=== PATIENT | female | born 1935 | race Caucasian/White ===

== ENCOUNTER → 2017-01-28 | Outpatient (CLI) | payer OTHER | LOC: BHFA 09:00 | PROVIDERS: ATTEND Internal Medicine | DX: I25.2 Old myocardial infarction (principal) ==

== ENCOUNTER → 2017-01-28 | Outpatient (CLI) | payer OTHER | LOC: FIMAGING 10:34 | PROVIDERS: ATTEND Internal Medicine | DX: J98.4 Other disorders of lung (principal); I10 Essential (primary) hypertension; I25.2 Old myocardial infarction ==

== ENCOUNTER 2017-02-04 16:24 | Emergency (ER) | payer OTHER ==
--- NOTE | 2017-02-04 16:57 | CPEKG ---
Heart Rate: 60 RR Interval: 1000 P-R Interval: 152 QRSD Interval: 90 QT Interval: 408 QTC Interval: 408 P [place]: 24 QRS [place]: -40 T Wave [place]: 60 EKG Severity - ABNORMAL ECG - EKG Impression: SINUS RHYTHM EKG Impression: LEFT AXIS DEVIATION EKG Impression: PROBABLE LEFT VENTRICULAR HYPERTROPHY EKG Impression: SIMILAR TO PREVIOUS Electronically Signed By: Clint Barrera 04-Feb-2017 17:24:37
[2017-02-04] MEDS ORDERED: NS 1,000 ML IV ONE (17:20)
--- NOTE | 2017-02-04 17:24 | EDPHY ---
H & P Chief Complaint Nursing Narrative: weakness, SOB, dizziness, abdominal pain x 2 days. had chest XR at Dr. Knowles office last week that was normal. Time Seen by Provider: 02/04/17 17:10 HPI/ROS: CHIEF COMPLAINT: Generalized weakness HISTORY OF PRESENT ILLNESS: The patient is an 81-year-old female who comes to the Urgent Care complaining of generalized weakness. She states that she was treated 10 days ago with Bactrim for urinary tract infection by her primary Dr. Toledo. She states that she did not feel any better. She does have a history of cystocele and prolapsed urethra So she has chronic discomfort with urination. She also has a history of scoliosis with chronic back pain but does not feel like she has had any worsening of either symptoms. She does have a history of hysterectomy as well as coronary artery disease remotely. She describes her symptoms as moderate but frustrating. she has not had a fever. No GI symptoms. No respiratory symptoms. No chest pain. REVIEW OF SYSTEMS: Constitutional: denies: chills, fever, recent illness, recent injury EENTM: denies: blurred vision, double vision, nose congestion Respiratory: denies: cough, shortness of breath Cardiac: denies: chest pain, irregular heart rate, lightheadedness, palpitations Gastrointestinal/Abdominal: denies: abdominal pain, diarrhea, nausea, vomiting, blood streaked stools Genitourinary: denies: dysuria, frequency, hematuria, pain Musculoskeletal: denies: joint pain, muscle pain Skin: denies: lesions, rash, jaundice, bruising Neurological: denies: headache, numbness, paresthesia, tingling, dizziness, weakness Hematologic/Lymphatic: denies: blood clots, easy bleeding, easy bruising Immunologic/allergic: denies: HIV/AIDS, transplant EXAM: GENERAL: Well-appearing, well-nourished and in no acute distress. HEAD: Atraumatic, normocephalic. EYES: Pupils equal round and reactive to light, extraocular movements intact, sclera anicteric, conjunctiva are normal. ENT: TMs normal, nares patent, oropharynx clear without exudates. Moist mucous membranes. NECK: Normal range of motion, supple without lymphadenopathy or JVD. LUNGS: Breath sounds clear to auscultation bilaterally and equal. No wheezes rales or rhonchi. HEART: Regular rate and rhythm without murmurs, rubs or gallops. ABDOMEN: Soft, nontender, normoactive bowel sounds. No guarding, no rebound. No masses appreciated. BACK: No CVA tenderness, no spinal tenderness, step-offs or deformities EXTREMITIES: Normal range of motion, no pitting or edema. No clubbing or cyanosis. NEUROLOGICAL: Cranial nerves II through XII grossly intact. Normal speech, normal gait. 5/5 strength, normal movement in all extremities, normal sensation PSYCH: Normal mood, normal affect. SKIN: Warm, dry, normal turgor, no visible rashes or lesions. Source: Patient Exam Limitations: No limitations - Personal History Current Tetanus Diphtheria and Acellular Pertussis (TDAP): Unsure - Medical/Surgical History Hx Asthma: No Hx Chronic Respiratory Disease: No Hx Diabetes: No Hx Cardiac Disease: Yes Hx Renal Disease: No Hx Cirrhosis: No Hx Alcoholism: No Hx HIV/AIDS: No Hx Splenectomy or Spleen Trauma: No Other PMH: [place] 15 years ago, hypothyroid, osteoporosis, GERD, depression - Family History Significant Family History: No pertinent family hx - Social History Smoking Status: Former smoker Alcohol Use: Sober Drug Use: None Constitutional: Initial Vital Signs Temperature (C) 36.6 C 02/04/17 16:26 Heart Rate 60 02/04/17 16:26 Respiratory Rate 18 02/04/17 16:26 Blood Pressure 163/96 H 02/04/17 16:26 O2 Sat (%) 95 02/04/17 16:26 O2 Delivery Mode Room Air Allergies/Adverse Reactions: IODINE DYE Allergy (Intermediate, Uncoded 02/04/17 16:33) BLISTERS Home Medications: Medication Instructions Recorded Alendronate Sodium [Fosamax 70 MG 70 mg PO FR@0700 01/13/15 (*)] Calcium Carb W/Vit D [Calcium Carb 500 mg PO DAILY@01/13/15 W/Vit D 500/200 (*)] Cholecalciferol (Vitamin D3) 2,000 unit PO DAILY@01/13/15 [Vitamin D3] Cyanocobalamin [Vitamin B12 (*)] 2,000 mcg PO DAILY@01/13/15 Duloxetine HCl [Cymbalta] 20 mg PO HS 01/13/15 Estrogens,Conjugated [Premarin 0.3 0.3 mg PO DAILY 01/13/15 MG (*)] Famotidine [Pepcid 20 MG (*)] 20 mg PO DAILY PRN 01/13/15 Herbals/Supplements -Info Only 1 ea PO DAILY 01/13/15 Ibuprofen [Motrin (*)] 200 mg PO BID PRN 01/13/15 LORazepam [Ativan (*)] 0.25 mg PO HS 01/13/15 Levothyroxine [Synthroid 88 mcg 88 mcg PO DAILY06 01/13/15 (*)] Lidocaine 5% [Lidoderm 5% Patch 1 ea TD DAILY PRN 01/13/15 (*)] Magnesium Oxide [Magnesium Oxide 400 mg PO DAILY@12 01/13/15 400 mg (*)] Multivitamins W-Minerals [Thera M 1 each PO DAILY 01/13/15 Plus Tablet (*)] Psyllium Seed/Aspartame [Metamucil 1 tbs PO DAILY 01/13/15 Powder] Methocarbamol [Robaxin 500 mg (*)] 500 mg PO BID PRN #20 tab 01/14/15 Cephalexin [Keflex] 500 mg PO TID #21 cap 02/04/17 Medical Decision Making - Diagnostics EKG Interpretation: An EKG obtained and was read and documented in trace view. Please see trace view for full reading and report. Sinus rhythm, no acute ischemic changes. ED Course/Re-evaluation: Patient is well appearing. I suspect that she has part of the 15% of patients in [facility] who have urinary tract infections resistant to Bactrim. I will obtain lab work and treat with IV fluids and antibiotics. 7:30 p.m. we discussed her disposition. Her urinalysis still appears infected which is consistent with her symptoms and presentation. She has received Keflex and IV fluids. I offered admission but she declines. She thinks that she can take care of herself at home. I gave her strict warnings for returning. Her neighbor will stay with her. Differential Diagnosis: Partial list of the Differential diagnosis considered include but were not limited to; dehydration, electrolyte abnormality, urinary tract infection and although unlikely based on the history and physical exam, I also considered pneumonia, sepsis, meningitis, acute coronary disease. I discussed these differential diagnoses and the plan with the patient as well as the usual and expected course. The patient understands that the diagnosis is provisional and that in medicine we are not always correct and that further workup is often warranted. Usual and customary warnings were given. All of the patient's questions were answered. The patient was instructed to return to the emergency department should the symptoms at all worsen or return, otherwise to followup with the physician as we discussed. - Data Points Laboratory Results: Laboratory Results 02/04/17 17:00 02/04/17 17:00 02/04/17 02/04/17 02/04/17 18:40 17:00 17:00 WBC 10.63 10^3/uL H 10^3/uL (3.80-9.50) RBC 4.42 10^6/uL 10^6/uL (4.18-5.33) Hgb 14.0 g/dL g/dL (12.6-16.3) Hct 40.7 % % (38.0-47.0) MCV 92.1 fL fL (81.5-99.8) MCH 31.7 pg pg (27.9-34.1) MCHC 34.4 g/dL g/dL (32.4-36.7) RDW 13.0 % % (11.5-15.2) Plt Count 248 10^3/uL 10^3/uL (150-400) MPV 9.6 fL fL (8.7-11.7) Neut % (Auto) 54.5 % % (39.3-74.2) Lymph % (Auto) 39.1 % % (15.0-45.0) [place] % (Auto) 4.8 % % (4.5-13.0) Eos % (Auto) 0.8 % % (0.6-7.6) Baso % (Auto) 0.5 % % (0.3-1.7) Nucleat RBC Rel Count 0.0 % % (0.0-0.2) Absolute Neuts (auto) 5.79 10^3/uL 10^3/uL (1.70-6.50) Absolute Lymphs (auto) 4.16 10^3/uL H 10^3/uL (1.00-3.00) Absolute Monos (auto) 0.51 10^3/uL 10^3/uL (0.30-0.80) Absolute Eos (auto) 0.09 10^3/uL 10^3/uL (0.03-0.40) Absolute Basos (auto) 0.05 10^3/uL 10^3/uL (0.02-0.10) Absolute Nucleated RBC 0.00 10^3/uL 10^3/uL (0-0.01) Immature Gran % 0.3 % % (0.0-1.1) Immature Gran # 0.03 10^3/uL 10^3/uL (0.00-0.10) Sodium 137 mEq/L mEq/L (134-144) Potassium 4.1 mEq/L mEq/L (3.5-5.2) Chloride 98 mEq/L mEq/L (97-110) Carbon Dioxide 27 mEq/l mEq/l (22-31) Anion Gap 12 mEq/L mEq/L (8-16) BUN 16 mg/dL mg/dL (7-23) Creatinine 0.6 mg/dL mg/dL (0.6-1.0) Estimated GFR > 60 Glucose 75 mg/dL mg/dL (70-100) Calcium 9.3 mg/dL mg/dL (8.5-10.4) Urine Color YELLOW Urine Appearance HAZY Urine pH 7.0 (5.0-7.5) Ur Specific [place] <= 1.005 (1.002-1.030) Urine Protein NEGATIVE (NEGATIVE) Urine Ketones NEGATIVE (NEGATIVE) Urine Blood NEGATIVE (NEGATIVE) Urine Nitrate NEGATIVE (NEGATIVE) Urine Bilirubin NEGATIVE (NEGATIVE) Urine Urobilinogen 0.2 EU EU (0.2-1.0) Ur Leukocyte Esterase 2+ H (NEGATIVE) Urine RBC 0-1 /hpf /hpf (0-3) Urine WBC 25-50 /hpf H /hpf (0-3) Ur Epithelial Cells TRACE /lpf /lpf (NONE-1+) Urine Bacteria 3+ /hpf H /hpf (NONE SEEN) Urine Mucus 1+ /lpf /lpf (NONE-1+) Ur Culture Indicated? INDICATED H (NI) Urine Glucose NEGATIVE (NEGATIVE) Medications Given: Discontinued Medications Sodium Chloride (Ns) 1,000 mls @ 0 mls/hr IV ONCE ONE PRN Reason: Wide Open Stop: 02/04/17 17:21 Last Admin: 02/04/17 17:30 Dose: 1,000 mls Ceftriaxone Sodium 1 gm/ (Sodium Chloride) 100 mls @ 200 mls/hr IV EDNOW ONE PRN Reason: Protocol Stop: 02/04/17 18:13 Last Admin: 02/04/17 18:00 Dose: 100 mls Departure - Departure Disposition: Home, Routine, Self-Care Clinical Impression: Urinary tract infection Qualifiers: Urinary tract infection type: acute cystitis Hematuria presence: without hematuria Qualified Code(s): N30.00 - Acute cystitis without hematuria Condition: Fair Instructions: Urinary Tract Infection in Women (ED) Referrals: Jasmyn Toledo MD [Primary Care Provider] - As per Instructions Prescriptions: Cephalexin [Keflex] 500 mg PO TID #21 cap
[2017-02-04 17:26] LABS: % IMMATURE GRANULYOCYTES 0.3 % (0.0-1.1); ABSOLUTE IMMATURE GRANULOCYTES 0.03 10^3/uL (0.00-0.10); ADD DIFF? NO; ADD MORPH? NO; ADD SCAN? NO; ATYPICAL LYMPHOCYTE FLAG 70 (0-99); FRAGMENT RBC FLAG 0 (0-99); HEMATOCRIT 40.7 % (38.0-47.0); LEFT SHIFT FLG 0 (0-99); LIPEMIA HEMOLYSIS FLAG 90 (0-99); MEAN CELL HEMOGLOBIN 31.7 pg (27.9-34.1); MEAN CELL HEMOGLOBIN CONCENTR. 34.4 g/dL (32.4-36.7); MEAN CELL VOLUME 92.1 fL (81.5-99.8); MEAN PLATELET VOLUME 9.6 fL (8.7-11.7); PLATELET CLUMPS FLAG 10 (0-99); PLATELET COUNT 248 10^3/uL (150-400); RED BLOOD CELL COUNT 4.42 10^6/uL (4.18-5.33)
[2017-02-04 17:37] LABS: ANION GAP 12 mEq/L (8-16); CALCIUM 9.3 mg/dL (8.5-10.4); CARBON DIOXIDE 27 mEq/l (22-31); CHLORIDE 98 mEq/L (97-110); CREATININE 0.6 mg/dL (0.6-1.0); GLOMERULAR FILTRATION RATE > 60; GLUCOSE 75 mg/dL (70-100); POTASSIUM 4.1 mEq/L (3.5-5.2); SODIUM 137 mEq/L (134-144)
[2017-02-04 18:45] LABS: COLOR YELLOW; LEUKOCYTE ESTERASE,URINE 2+ (NEGATIVE); NITRITE,URINE NEGATIVE (NEGATIVE)
[2017-02-04 18:58] LABS: BACTERIA 3+ /hpf (NONE SEEN); MUCUS 1+ /lpf (NONE-1+); RBC,URINE 0-1 /hpf (0-3); WBC,URINE 25-50 /hpf (0-3)
[2017-02-04 20:05] VITALS: BP 172/77; PULSE 63; RESP 16; TEMP 98.2; O2SAT 94
== END 2017-02-04 19:58 | disposition home or self-care (01) ==
LOC: CED 16:24
DX: N30.00 Acute cystitis without hematuria (principal); K21.9 Gastro-esophageal reflux disease without esophagitis; E03.9 Hypothyroidism, unspecified; M81.0 Age-related osteoporosis without current pathological fracture; I25.2 Old myocardial infarction; F32.9 Major depressive disorder, single episode, unspecified; Z87.891 Personal history of nicotine dependence
CPT/HCPCS: 93005; 96361; 96365; G0463; J0696; 80048-PO; 81003-PO; 81015-PO; 85025-PO

== ENCOUNTER 2017-02-08 16:21 | Inpatient (IN) | payer OTHER ==
[2017-02-08] MEDS ORDERED: NS 1,000 ML IV ONE (16:57)
--- NOTE | 2017-02-08 17:01 | EDPHY ---
H & P Stated Complaint: Seen [place] [place] antibx;BC&UC done;still weak,now w/ diarrhea Time Seen by Provider: 02/08/17 16:36 HPI/ROS: CHIEF COMPLAINT: Generalized weakness HISTORY OF PRESENT ILLNESS: Patient is a 81-year-old female who comes to the emergency department complaining of generalized weakness. She has had the symptoms for about 2 weeks. She was initially seen by her primary care doctor Tre about 2 weeks ago and diagnosed with urinary tract infection. She was started on Bactrim. She then presented to the urgent care 4 days ago and was seen by me. She had continued symptoms of generalized weakness and mild dysuria. Her urinalysis was positive and she was treated with Keflex. Her cultures came back with E coli sensitive to both Bactrim and Keflex. Her blood cultures are negative. She does have a history of prolapsed bladder but has previously not been prone to frequent urinary tract infections although she always has some discomfort with urination. She has surgery scheduled February 26 to have this repaired and she is trying to get well. She complains of weakness, cloudy thinking and difficulty making decisions. She also now has mild diarrhea after starting Keflex. No fever. No difficulty breathing, no chest pain. No abdominal pain, nausea or vomiting. No headache. No focal weakness. REVIEW OF SYSTEMS: Constitutional: denies: chills, fever, recent illness, recent injury EENTM: denies: blurred vision, double vision, nose congestion Respiratory: denies: cough, shortness of breath Cardiac: denies: chest pain, irregular heart rate, lightheadedness, palpitations Gastrointestinal/Abdominal: denies: abdominal pain, diarrhea, nausea, vomiting, blood streaked stools Genitourinary: denies: dysuria, frequency, hematuria, pain Musculoskeletal: denies: joint pain, muscle pain Skin: denies: lesions, rash, jaundice, bruising Neurological: denies: headache, numbness, paresthesia, tingling, dizziness, weakness Hematologic/Lymphatic: denies: blood clots, easy bleeding, easy bruising Immunologic/allergic: denies: HIV/AIDS, transplant EXAM: GENERAL: Well-appearing, well-nourished and in no acute distress. HEAD: Atraumatic, normocephalic. EYES: Pupils equal round and reactive to light, extraocular movements intact, sclera anicteric, conjunctiva are normal. ENT: TMs normal, nares patent, oropharynx clear without exudates. Moist mucous membranes. NECK: Normal range of motion, supple without lymphadenopathy or JVD. LUNGS: Breath sounds clear to auscultation bilaterally and equal. No wheezes rales or rhonchi. HEART: Regular rate and rhythm without murmurs, rubs or gallops. ABDOMEN: Soft, nontender, normoactive bowel sounds. No guarding, no rebound. No masses appreciated. BACK: No CVA tenderness, no spinal tenderness, step-offs or deformities EXTREMITIES: Normal range of motion, no pitting or edema. No clubbing or cyanosis. NEUROLOGICAL: Cranial nerves II through XII grossly intact. Normal speech, normal gait. 5/5 strength, normal movement in all extremities, normal sensation PSYCH: Normal mood, normal affect. SKIN: Warm, dry, normal turgor, no visible rashes or lesions. Source: Patient Exam Limitations: No limitations - Personal History Current Tetanus Diphtheria and Acellular Pertussis (TDAP): Yes - Medical/Surgical History Hx Asthma: No Hx Chronic Respiratory Disease: No Hx Diabetes: No Hx Cardiac Disease: Yes Hx Renal Disease: No Hx Cirrhosis: No Hx Alcoholism: No Hx HIV/AIDS: No Hx Splenectomy or Spleen Trauma: No Other PMH: [place] 15 years ago, hypothyroid, osteoporosis, GERD, depression - Family History Significant Family History: No pertinent family hx - Social History Smoking Status: Former smoker Alcohol Use: None Drug Use: None Constitutional: Initial Vital Signs Temperature (C) 36.8 C 02/08/17 16:25 Heart Rate 66 02/08/17 16:25 Respiratory Rate 18 02/08/17 16:25 Blood Pressure 142/75 H 02/08/17 16:25 O2 Sat (%) 96 02/08/17 16:25 O2 Delivery Mode Room Air Allergies/Adverse Reactions: IODINE DYE Allergy (Intermediate, Uncoded 02/04/17 16:33) BLISTERS Home Medications: Medication Instructions Recorded Cyanocobalamin [Vitamin B12 (*)] 2,000 mcg PO DAILY 01/13/15 Estrogens,Conjugated [Premarin 0.3 0.3 mg PO DAILY 01/13/15 MG (*)] Herbals/Supplements -Info Only 1 ea PO DAILY 01/13/15 LORazepam [Ativan (*)] 0.25 mg PO HS PRN 01/13/15 Levothyroxine [Synthroid 88 mcg 88 mcg PO DAILY06 01/13/15 (*)] Lidocaine 5% [Lidoderm 5% Patch 1 ea TD DAILY PRN 01/13/15 (*)] Magnesium Oxide [Magnesium Oxide 400 mg PO DAILY@12 01/13/15 400 mg (*)] Cephalexin [Keflex] 500 mg PO TID #21 cap 02/04/17 Patch Removal 1 ea TP DAILY@199902/08/17 Medical Decision Making - Diagnostics EKG Interpretation: An EKG obtained and was read and documented in trace view. Please see trace view for full reading and report. Sinus rhythm, earlier appointment block, no acute ischemic changes similar to previous Imaging: Imaging Impressions Chest X-Ray 02/08/17 16:58 Impression: No acute findings in the chest. Independently reviewed by me ED Course/Re-evaluation: 6:30 p.m. the patient's lab work and imaging are unremarkable. She is relieved but still feels generally weak. I have treated her with IV fluids thus far for mild dehydration clinically. I have ordered a C diff panel to evaluate her diarrhea. I spoke with Dr. Britany Bui who will admit to the medical service. Differential Diagnosis: Partial list of the Differential diagnosis considered include but were not limited to; generalized weakness, dehydration, urinary tract infection, C difficile and although unlikely based on the history and physical exam, I also considered electrolyte abnormality, acute coronary disease, CVA. - Data Points Laboratory Results: Laboratory Results 02/08/17 17:30 02/08/17 17:30 02/08/17 02/08/17 02/08/17 17:30 17:30 17:30 WBC 10.14 10^3/uL H 10^3/uL (3.80-9.50) RBC 4.62 10^6/uL 10^6/uL (4.18-5.33) Hgb 14.5 g/dL g/dL (12.6-16.3) Hct 42.8 % % (38.0-47.0) MCV 92.6 fL fL (81.5-99.8) MCH 31.4 pg pg (27.9-34.1) MCHC 33.9 g/dL g/dL (32.4-36.7) RDW 13.3 % % (11.5-15.2) Plt Count 283 10^3/uL 10^3/uL (150-400) MPV 9.6 fL fL (8.7-11.7) Neut % (Auto) 48.8 % % (39.3-74.2) Lymph % (Auto) 45.5 % H % (15.0-45.0) [place] % (Auto) 4.0 % L % (4.5-13.0) Eos % (Auto) 0.7 % % (0.6-7.6) Baso % (Auto) 0.8 % % (0.3-1.7) Nucleat RBC Rel Count 0.0 % % (0.0-0.2) Absolute Neuts (auto) 4.95 10^3/uL 10^3/uL (1.70-6.50) Absolute Lymphs (auto) 4.61 10^3/uL H 10^3/uL (1.00-3.00) Absolute Monos (auto) 0.41 10^3/uL 10^3/uL (0.30-0.80) Absolute Eos (auto) 0.07 10^3/uL 10^3/uL (0.03-0.40) Absolute Basos (auto) 0.08 10^3/uL 10^3/uL (0.02-0.10) Absolute Nucleated RBC 0.00 10^3/uL 10^3/uL (0-0.01) Immature Gran % 0.2 % % (0.0-1.1) Seg Neutrophils % 51 % % Band Neutrophils % 2 % % Lymphocytes % 42 % % Monocytes % 5 % % Immature Gran # 0.02 10^3/uL 10^3/uL (0.00-0.10) Absolute Seg Neuts 5.17 10^/uL 10^/uL (1.70-6.50) Absolute Band Neuts 0.20 10^3/uL 10^3/uL (0.00-0.70) Absolute Lymphocytes 4.26 10^3/uL H 10^3/uL (1.00-3.00) Absolute Monocytes 0.51 10^3/uL 10^3/uL (0.30-0.80) RBC/WBC/PLT Morphology NORMAL (NORMAL) Atypical Lymphocytes 2+ H Platelet Estimate ADEQUATE (ADEQ) Smear Review By Pending PT 13.1 SEC SEC (12.0-15.0) INR 1.00 (0.83-1.16) APTT 28.2 SEC SEC (23.0-38.0) Sodium 137 mEq/L mEq/L (134-144) Potassium 4.2 mEq/L mEq/L (3.5-5.2) Chloride 99 mEq/L mEq/L (97-110) Carbon Dioxide 30 mEq/l mEq/l (22-31) Anion Gap 8 mEq/L mEq/L (8-16) BUN 18 mg/dL mg/dL (7-23) Creatinine 0.7 mg/dL mg/dL (0.6-1.0) Estimated GFR > 60 Glucose 83 mg/dL mg/dL (70-100) Calcium 9.7 mg/dL mg/dL (8.5-10.4) Total Bilirubin 0.6 mg/dL mg/dL (0.1-1.4) Conjugated Bilirubin 0.2 mg/dL mg/dL (0.0-0.5) Unconjugated Bilirubin 0.4 mg/dL mg/dL (0.0-1.1) AST 42 IU/L IU/L (14-46) ALT 42 IU/L IU/L (9-52) Alkaline Phosphatase 94 IU/L IU/L (38-126) Troponin I < 0.012 ng/mL ng/mL (0-0.034) Total Protein 7.7 g/dL g/dL (6.3-8.2) Albumin 4.3 g/dL g/dL (3.5-5.0) Medications Given: Discontinued Medications Sodium Chloride (Ns) 1,000 mls @ 0 mls/hr IV ONCE ONE PRN Reason: Wide Open Stop: 02/08/17 16:58 Last Admin: 02/08/17 17:49 Dose: 1,000 mls Departure - Dep[facility] Clinical Impression: Generalized weakness Condition: Fair
[2017-02-08 17:44] LABS: % IMMATURE GRANULYOCYTES 0.2 % (0.0-1.1); ABSOLUTE IMMATURE GRANULOCYTES 0.02 10^3/uL (0.00-0.10); ADD DIFF? NO; ADD MORPH? NO; ADD SCAN? YES; FRAGMENT RBC FLAG 0 (0-99); HEMATOCRIT 42.8 % (38.0-47.0); HEMOGLOBIN 14.5 g/dL (12.6-16.3); LEFT SHIFT FLG 0 (0-99); LIPEMIA HEMOLYSIS FLAG 90 (0-99); MEAN CELL HEMOGLOBIN 31.4 pg (27.9-34.1); MEAN CELL HEMOGLOBIN CONCENTR. 33.9 g/dL (32.4-36.7); MEAN CELL VOLUME 92.6 fL (81.5-99.8); MEAN PLATELET VOLUME 9.6 fL (8.7-11.7); PLATELET CLUMPS FLAG 20 (0-99); PLATELET COUNT 283 10^3/uL (150-400); RED BLOOD CELL COUNT 4.62 10^6/uL (4.18-5.33); RED CELL DISTRIBUTION WIDTH 13.3 % (11.5-15.2)
[2017-02-08 17:46] LABS: ATYPICAL LYMPHOCYTE FLAG 120 (0-99)
--- NOTE | 2017-02-08 17:49 | CPEKG ---
Heart Rate: 60 RR Interval: 1000 P-R Interval: 196 QRSD Interval: 90 QT Interval: 404 QTC Interval: 404 P [place]: 66 QRS [place]: -40 T Wave [place]: 49 EKG Severity - ABNORMAL ECG - EKG Impression: SINUS RHYTHM EKG Impression: PROBABLE LEFT ATRIAL ABNORMALITY EKG Impression: LEFT AXIS DEVIATION EKG Impression: LEFT VENTRICULAR HYPERTROPHY EKG Impression: Early right bundle branch block EKG Impression: Similar to previous Electronically Signed By: Clint Barrera 08-Feb-2017 18:10:07
[2017-02-08 17:51] LABS: PROTIME(PATIENT) 13.1 SEC (12.0-15.0)
[2017-02-08 17:52] LABS: APTT 28.2 SEC (23.0-38.0)
[2017-02-08 17:53] LABS: ALANINE AMINOTRANSFERASE 42 IU/L (9-52); ALBUMIN 4.3 g/dL (3.5-5.0); ALKALINE PHOSPHATASE 94 IU/L (38-126); ANION GAP 8 mEq/L (8-16); ASPARTATE AMINOTRANSFERASE 42 IU/L (14-46); BILIRUBIN,TOTAL 0.6 mg/dL (0.1-1.4); BILIRUBIN-CONJUGATED 0.2 mg/dL (0.0-0.5); BILIRUBIN-UNCONJUGATED 0.4 mg/dL (0.0-1.1); CALCIUM 9.7 mg/dL (8.5-10.4); CARBON DIOXIDE 30 mEq/l (22-31); CHLORIDE 99 mEq/L (97-110); CREATININE 0.7 mg/dL (0.6-1.0); GLOMERULAR FILTRATION RATE > 60; GLUCOSE 83 mg/dL (70-100); POTASSIUM 4.2 mEq/L (3.5-5.2); SODIUM 137 mEq/L (134-144); TOTAL PROTEIN 7.7 g/dL (6.3-8.2)
[2017-02-08 18:04] LABS: TROPONIN I < 0.012 ng/mL (0-0.034)
[2017-02-08 18:10] LABS: SCAN POSITIVE
[2017-02-08 18:15] LABS: PLATELET ESTIMATE ADEQUATE (ADEQ)
[2017-02-08 19:55] LABS: COLOR PALE YELLOW; LEUKOCYTE ESTERASE,URINE 2+ (NEGATIVE); NITRITE,URINE NEGATIVE (NEGATIVE)
[2017-02-08 20:00] LABS: RENAL EPITHELIAL CELLS OCCASIONAL /hpf (NONE SEEN)
[2017-02-08] MEDS ORDERED: ONDANSETRON 4 MG/2 ML VIAL IVP PRN (20:29)
[2017-02-08] MEDS ORDERED: ACETAMINOPHEN 325 MG TAB PO PRN (20:29)
[2017-02-08] MEDS ORDERED: NS 1,000 ML IV SCH (20:30)
[2017-02-08] MEDS ORDERED: LORazepam 0.5 MG TAB PO PRN (21:10)
--- NOTE | 2017-02-08 21:12 | GHP ---
[f rep st] HISTORY AND PHYSICAL DATE OF ADMISSION: 02/08/2017 CHIEF COMPLAINT: Weakness. Ongoing difficulties with urination. HISTORY OF PRESENT ILLNESS: The patient is an 81-year-old female who has been treated for urinary t ract infection twice recently. She initially received a course of Bactrim and re-presented to [facility] 4 days ago and, despite this Bactrim, had a persistent UTI and was started on Keflex. Urine cultures from both UTIs were showing a pansensitive E coli. Despite being on appropriate antibiotic s as therapy, she has failed to improve. She is getting progressively more weak over the last 2 wee ks and feels she has lost her balance and is also having mental status changes. She has discomfort with urination and difficulty getting her urine out. This difficulty with urination has been going on for about 5 months and she has been diagnosed with prolapse of her bladder and she has surgery sc heduled for this on February 26. She has also developed some new diarrhea. PAST MEDICAL HISTORY: 1. Hypertension. 2. Coronary artery disease, status post OR. PAST SURGICAL HISTORY: Breast reduction surgery. MEDICATIONS: Please see computer records for full detailed list. ALLERGIES: Iodine. SOCIAL HISTORY: She quit smoking in 1961. No alcohol. She lives alone. She is a . Her husb and was [employer] business professor and she came over with him from [facility]. All of her family is now back in [facility], but she has a neighbor whom she is very close with and says she is like a daught er. Her she requested code status is DNR. REVIEW OF SYSTEMS: A complete review of systems was obtained. Review of systems is negative regard ing constitutional, HEENT, GI, pulmonary, cardiovascular, , hematology, skin, musculoskeletal, end ocrine, psych, except for positives and negatives as in HPI. FAMILY HISTORY: Mother at age 97. PHYSICAL EXAMINATION: GENERAL: A well-developed, well-nourished female, in no acute distress. VIT AL SIGNS: Temperature is 36.8, pulse 60, blood pressure 166/82, saturating 97% on room. EYES: Nor mal conjunctivae, pupils equal and reactive to light. ENT: Normal ears and nose. Hearing intact. Normal teeth. Oropharynx moist. NECK: Trachea midline. No thyromegaly. CHEST: Normal respirat ory effort. LUNGS: Clear to auscultation bilaterally. CARDIOVASCULAR: Regular rhythm. No murmur . No lower extremity edema. ABDOMEN: Soft, nontender. No hepatosplenomegaly. SKIN: Warm, dry, intact. No rash. MUSCULOSKELETAL: No cyanosis or clubbing. Strength is 5/5 upper and lower extre mities. NEUROLOGIC: Cranial nerves intact. Normal sensation to light touch. PSYCH: Alert and or iented x3. Normal affect. Normal judgment and insight. Normal memory. LABORATORY DATA: White count 10.14, hematocrit 42.8, platelets 283. Sodium 137, potassium 4.2, chl oride 99, bicarb 30, BUN 18, creatinine 0.7, glucose 83. LFTs are negative. Troponins negative. EKG viewed by me: My personal interpretation is normal sinus rhythm with LVH. Chest x-ray is negative. Old chart review reveals urine culture on January 25 and January 10 both showing the same pansensitiv e E coli. ASSESSMENT AND PLAN: 1. Recurrent urinary tract infection. This has failed to clear despite being on adequate antibioti cs, as her culture is growing a pansensitive Escherichia coli. I suspect this is anatomic to her du e to her bladder prolapse. We will check a renal ultrasound, but my suspicion is that she is not em ptying her bladder adequately. She may need to wear a catheter until her planned surgery on February [address] her on IV ceftriaxone. She is currently on day #4 of her current course of antibiotic s. Given the obstructive concerns related to this urinary tract infection, that makes it more compl icated, and she probably needs a prolonged course of antibiotics, likely 7-10 days. 2. Diarrhea. Clostridium difficile is pending. 3. Acute weakness. Will get PT/OT consultations. 4. Metabolic encephalopathy. This is mild. Probably due to her infection. 5. Hypertension. Will clarify home medications. CODE STATUS: She requests DNR. ADMISSION STATUS: Will admit to inpatient, as given her profound weakness, I anticipate greater lavonne n 2 midnights will be required for stabilization for her. DVT PROPHYLAXIS: She is high risk. Will place on subcu Lovenox. /[id number]/MODL
[2017-02-09 05:14] LABS: % IMMATURE GRANULYOCYTES 0.2 % (0.0-1.1); ABSOLUTE IMMATURE GRANULOCYTES 0.02 10^3/uL (0.00-0.10); ADD DIFF? NO; ADD MORPH? NO; ADD SCAN? NO; ATYPICAL LYMPHOCYTE FLAG 90 (0-99); FRAGMENT RBC FLAG 0 (0-99); HEMATOCRIT 34.3 % (38.0-47.0); HEMOGLOBIN 11.7 g/dL (12.6-16.3); LEFT SHIFT FLG 0 (0-99); LIPEMIA HEMOLYSIS FLAG 90 (0-99); MEAN CELL HEMOGLOBIN CONCENTR. 34.1 g/dL (32.4-36.7); MEAN CELL VOLUME 93.7 fL (81.5-99.8); MEAN PLATELET VOLUME 9.9 fL (8.7-11.7); PLATELET CLUMPS FLAG 0 (0-99); PLATELET COUNT 216 10^3/uL (150-400); RED BLOOD CELL COUNT 3.66 10^6/uL (4.18-5.33); RED CELL DISTRIBUTION WIDTH 13.3 % (11.5-15.2)
[2017-02-09 05:30] LABS: ANION GAP 2 mEq/L (8-16); CALCIUM 8.2 mg/dL (8.5-10.4); CARBON DIOXIDE 26 mEq/l (22-31); CHLORIDE 108 mEq/L (97-110); CREATININE 0.6 mg/dL (0.6-1.0); GLOMERULAR FILTRATION RATE > 60; GLUCOSE 77 mg/dL (70-100); SODIUM 136 mEq/L (134-144)
[2017-02-09] MEDS: LEVOTHYROXINE 88 MCG TAB PO SCH (05:33)
--- NOTE | 2017-02-09 08:20 | HOSPPROG ---
Hospitalist Progress Note Assessment/Plan: 81-y/o F with PMH htn, coronary disease, bladder prolapse scheduled for surgery 02/26, p/w ongoing difficulty with urination that started about 5 months ago. Recently has had 2 courses of abx for persistent UTI. Four days, she was started on Keflex (after course of Bactrim). Despite this, she has failed to improved and felt more week, off balance and dysuria with urinary retention. Pt new to me. #. UTI: recurrent despite having pansensitive E coli on culture, continues to be symptomatic on CTX DR. Bui suggested delgado to be placed until February surgery; however no e/o retention currently and will therefore defer #. bladder prolapse: renal US showing large PVR but bedside bladder scan OK #. diarrhea: C diff neg #. Acute weakness: PT/OT consults pending #. htn: not on antihypertensives for home regimen/ monitor #. metabolic encephalopathy #. DVT ppx: started Enox #. CHAMBERS: h/o [place] 20 years ago pt reports this for a few months/ has seen cards as OP and will have stress test and echo start ASA therapy as OP #. LOS: possible D/C 02/09 if continues to feel improved Subjective: Feels improved in regards to energy/mentation. Does not feel difficulty urinating this AM. Objective: Vital Signs Temp Pulse Resp BP Pulse Ox 98.8 F 53 L 16 138/74 H 94 02/09/17 07:51 02/09/17 07:51 02/09/17 07:51 02/09/17 07:51 02/09/17 07:51 Laboratory Results 02/09/17 04:40 02/09/17 04:40 02/08/17 02/09/17 02/10/17 05:59 05:59 05:59 Intake Total 1700 Output Total 1000 900 Balance 700 -900 PT 13.1 SEC (12.0-15.0) 02/08/17 17:30 INR 1.00 (0.83-1.16) 02/08/17 17:30 - Pending Discharge Pending Discharge Within 48 Hours: Yes Pending Discharge Date: 02/11/17 Pending Discharge Time: 11:00 - Physical Exam Constitutional: no apparent distress, appears nourished Eyes: PERRL Ears, Nose, Mouth, Throat: moist mucous membranes, hearing normal Cardiovascular: regular rate and rhythym, no murmur, rub, or gallop Respiratory: no respiratory distress, no rales or rhonchi Genitourinary: no bladder tenderness, No delgado in urethra Neurologic: AAOx3 Psychiatric: interacting appropriately, not anxious ICD10 Worksheet Patient Problems: Problems Problem Status Onset Generalized weakness Acute Severe dizziness Acute Urinary tract infection Acute
[2017-02-09] MEDS: CYANO/VITAMIN B12 1000 MCG TAB PO SCH (10:05)
[2017-02-09] MEDS: ESTROGENS,CONJUGATED 0.3 MG TAB PO SCH (10:05)
[2017-02-09] MEDS: MAGNESIUM OXIDE 400 MG TAB PO SCH (10:18)
[2017-02-09] MEDS: ENOXAPARIN 40 MG/0.4 ML SYR SC SCH (10:19)
[2017-02-09 15:57] VITALS: BP 133/70
[2017-02-10 00:08] VITALS: PULSE 53; RESP 16; TEMP 97.8; O2SAT 92
[2017-02-10] MEDS: LEVOTHYROXINE 88 MCG TAB PO SCH (05:45)
--- NOTE | 2017-02-10 08:09 | HOSPPROG ---
Hospitalist Progress Note Assessment/Plan: 81-y/o F with PMH htn, coronary disease, bladder prolapse scheduled for surgery 02/26, p/w ongoing difficulty with urination that started about 5 months ago. Recently has had 2 courses of abx for persistent UTI. Four days, she was started on Keflex (after course of Bactrim). Despite this, she has failed to improved and felt more week, off balance and dysuria with urinary retention. Pt new to me. #. UTI: recurrent despite having pansensitive E coli on culture, continues to be symptomatic on CTX abd ultrasound shows large postvoid residual exceeding the prevoid residual may benefit from a delgado until surgery in February/ but patient doesn't want this #. bladder prolapse: renal US showing large PVR but bedside bladder scan OK spoke with her surgeon, Dr Mt Vazquez he is recommending she get a pessary/ his office will call #. diarrhea: C diff neg #. Acute weakness: doing better today/ ambulating in room #. htn: bp 133/70 this a.m./ not on treatment #. metabolic encephalopathy #. DVT ppx: started Enox #. CHAMBERS: h/o [place] 20 years ago pt reports this for a few months/ has seen cards as OP and will have stress test and echo start ASA therapy as OP #. LOS: dc today/ Dr Mt Vazquez's office to call and f/u with her Subjective: Aliyah is feeling better/ anxious for dc. Objective: Vital Signs Temp Pulse Resp BP Pulse Ox 36.6 C 53 L 16 133/70 H 92 02/10/17 00:00 02/10/17 00:00 02/10/17 00:00 02/10/17 00:00 02/10/17 00:00 Laboratory Results 02/10/17 04:23 02/09/17 04:40 02/09/17 02/10/17 02/11/17 05:59 05:59 05:59 Intake Total 1700 1600 Output Total 1000 2700 Balance 700 -1100 PT 13.1 SEC (12.0-15.0) 02/08/17 17:30 INR 1.00 (0.83-1.16) 02/08/17 17:30 - Physical Exam Constitutional: no apparent distress, appears nourished, not in pain Eyes: PERRL Ears, Nose, Mouth, Throat: hearing normal Cardiovascular: regular rate and rhythym, no murmur, rub, or gallop Respiratory: no respiratory distress, no rales or rhonchi Genitourinary: no bladder fullness Skin: warm Musculoskeletal: full muscle strength Neurologic: AAOx3 Psychiatric: interacting appropriately, not anxious ICD10 Worksheet Patient Problems: Problems Problem Status Onset Generalized weakness Acute Severe dizziness Acute Urinary tract infection Acute
[2017-02-10] MEDS: ESTROGENS,CONJUGATED 0.3 MG TAB PO SCH (09:33)
[2017-02-10] MEDS: CYANO/VITAMIN B12 1000 MCG TAB PO SCH (09:33)
[2017-02-10] MEDS: ENOXAPARIN 40 MG/0.4 ML SYR SC SCH (09:35)
[2017-02-10] MEDS: MAGNESIUM OXIDE 400 MG TAB PO SCH (11:55)
--- NOTE | 2017-02-10 13:11 | GDS ---
[f rep st] DISCHARGE SUMMARY DISCHARGE DIAGNOSES: 1. Urinary tract infection, recurrent. 2. Bladder prolapse. 3. Diarrhea. 4. Weakness. 5. Hypertension. 6. Metabolic encephalopathy. HISTORY OF PRESENT ILLNESS: Briefly, the patient is an 81-year-old female, who has been treated for urinary tract infections twice recently. Initially she received a course of Bactrim. She represen je to urgent care 4 days ago despite the Bactrim and was started on Keflex. Urine culture and both UTIs were showing a pansensitive E coli. Despite being on appropriate antibiotic therapy, she fail ed to improve. She had difficulty with urination. She has scheduled surgery for treatment of prola pse of her bladder. I reviewed her care with Dr. tM Vazquez. He will follow up with her today or have his office follow up with her and see if she may qualify for a pessary. HOSPITAL COURSE: 1. Urinary tract infection. An abdominal ultrasound shows a large postvoid residual exiting the pr evoid residual. The patient does not want a catheter. She has been treated with multiple antibioti cs. Will discharge her on Ceftin for 7 more days. 2. Bilateral prolapse. I spoke with her surgeon, Dr. Mt Vazquez. He will have his office follow up with her. 3. Diarrhea. Clostridium difficile is negative. 4. Weakness, much improved. 5. Hypertension. Blood pressure is better today at 133/70. 6. Metabolic encephalopathy, resolved. PENDING LABS AND TESTS: None. CONDITION AT DISCHARGE: Stable. Blood pressure is 133/70, heart rate is 53, respiratory rate 16, O 2 sats on room air 92%, temperature 36.6 Celsius. MEDICATIONS AT DISCHARGE: Please see the EMR. DISCHARGE INSTRUCTIONS: 1. Take the antibiotics as prescribed. 2. I recommend that she stay well hydrated. I suspect some of her problem is that she gets dehydra ej and constipated. 3. Further follow up with Dr. Mt Vazquez. TIME SPENT: Greater than 30 minutes discharging and coordinating her care. /[id number]/MODL
== END 2017-02-10 14:00 | disposition home or self-care (01) | DRG 689 ==
LOC: OBSVTOIN 20:28 → F3E 21:26
PROVIDERS: ADMIT Internal Medicine; ATTEND Internal Medicine
DX: N39.0 Urinary tract infection, site not specified (principal); G93.41 Metabolic encephalopathy; N81.10 Cystocele, unspecified; R19.7 Diarrhea, unspecified; I10 Essential (primary) hypertension; B96.20 Unspecified Escherichia coli [E. coli] as the cause of diseases classified elsewhere; I25.2 Old myocardial infarction; E03.9 Hypothyroidism, unspecified; M81.0 Age-related osteoporosis without current pathological fracture; Z87.891 Personal history of nicotine dependence
CPT/HCPCS: 97110-GP; 97116-GP; 97162-GP; 97165-GO; G8978-GP-CH; G8979-GP-CH; G8980-GP-CH; G8987-GO-CI; G8988-GO-CH; G8989-GO-CH; J0696; J1650

== ENCOUNTER 2017-02-26 09:32 | Inpatient (IN) | payer OTHER ==
[~2017-02-26 09:32] MED LIST: LR 1,000 ML IV ONE; PHENAZOPYRIDINE HCL 200 MG TAB PO ONE; ceFAZolin 2 GM/DEXTROSE 100 ML IV ONE
[2017-02-26] MEDS ORDERED: BUPIVACAINE/EPI 0.5% 30 ML SDV ONE (10:04)
[2017-02-26] MEDS ORDERED: LR 1,000 ML IV ONE (10:18)
[2017-02-26] MEDS ORDERED: LIDOCAINE 1% 5 ML SDV ID PRN (10:18)
[2017-02-26] MEDS ORDERED: PHENAZOPYRIDINE HCL 200 MG TAB ONE (10:21)
[2017-02-26] MEDS ORDERED: CEFAZOLIN 2 GM/DEXTROSE/100 ML BAG IV ONE (10:21)
[2017-02-26] MEDS ORDERED: fentaNYL 250 MCG/5 ML INJ ONE (11:00)
[2017-02-26] MEDS ORDERED: PROPOFOL 200 MG/20 ML VIAL ONE (11:01)
[2017-02-26] MEDS ORDERED: HYDROCODONE/APAP 5/325 TAB PO PRN (12:04)
[2017-02-26] MEDS ORDERED: ONDANSETRON 4 MG/2 ML VIAL IVP PRN (12:04)
--- NOTE | 2017-02-26 12:07 | POSTOPPROG ---
Post Op Note Date of Operation: 03/01/17 Surgeon: Mt Vazquez Acid Cleaner: Priti Raymond Anesthesia: GET(General Endotracheal) Pre-op Diagnosis: vaginal prolapse Post-op Diagnosis: Same Procedure: Robotic sacrocolpopexy, cysto Findings: ureters function at end of case Inf/Abcess present in the surg proc area at time of surgery?: No EBL: Minimal Complications: None
[2017-02-26] MEDS ORDERED: LR 1,000 ML IV SCH (12:30)
[2017-02-26] MEDS ORDERED: fentaNYL 100 MCG/2 ML INJ ONE (15:33)
[2017-02-26] MEDS ORDERED: KETOROLAC 30 MG/1 ML SDV ONE (16:01)
[2017-02-26] MEDS ORDERED: HYDROmorphONE/DILAUDID 1 MG/ML SYR ONE (16:02)
--- NOTE | 2017-02-26 18:35 | GOP ---
[f rep st] OPERATIVE REPORT DATE OF OPERATION: 02/26/2017 SURGEON: Mt Vazquez MD LIEUTENANT GENERAL: Priti Raymond CFA. ANESTHESIA: General. PREOPERATIVE DIAGNOSIS: 1. Cystocele. 2. Vaginal vault prolapse. 3. Rectocele. 4. Bladder outlet obstruction. POSTOPERATIVE DIAGNOSIS: PROCEDURE PERFORMED: 1. Robotic-assisted laparoscopic sacral colpopexy with mesh. 2. Repair of cystocele and rectocele. 3. Cystoscopy. FINDINGS: SPECIMENS: None. ESTIMATED BLOOD LOSS: Less than 20 mL. DESCRIPTION OF PROCEDURE: The patient was taken to the operating room, where she was identified. G eneral anesthesia was administered and found to be adequate. She was placed in the lithotomy positi on and prepared and draped in normal sterile fashion. A Silva catheter was placed in her bladder. A 1 cm infraumbilical incision was made with a scalpel. The Veress needle with the CO2 gas flowing was advanced into the peritoneal cavity. The abdomen was then insufflated with carbon dioxide gas. The 12 mm trocar, followed by the laparoscope, was then inserted. The upper abdomen was unremarkab le. Two lateral ports were placed on either side under direct visualization. She then was placed i n Trendelenburg position, and the da Reddy robot docked on the left side. The instruments were then brought into the abdominal cavity under direct visualization. The patient's sigmoid colon was adherent throughout the course of the left lateral pelvis as well as to the vaginal cuff. This was taken down sharply. A stent was then placed in the vagina. The pat ient's bladder was greatly enlarged and dilated. The bladder was gently dissected off the anterior vaginal wall down to the level of the bladder neck. The rectovaginal space was then entered, and th e rectum dissected off the posterior vaginal wall down to the level of the perineal body. Measureme nts were then obtained, and the mesh trimmed to size. The sigmoid colon was then retracted laterally. The peritoneum over the sacral promontory was incis ed. The fat pad was gently dissected off the anterior longitudinal ligament. The peritoneal incisi on was then extended along the right pericolic gutter medial to the right ureter and lateral to the sigmoid colon, until it met the rectovaginal opening. The mesh was then brought into the abdominal cavity. Three sutures of 4-0 [place] were used to att ach the distal posterior mesh to the perineal body. Two additional rows of [place]Navdeep sutures were pl aced posteriorly. The anterior arm of the mesh was sutured down to the level of the bladder neck an d laterally to the paravaginal tissue, also with 3 rows of [place]Navdeep suture. The sacral arm of the m esh was then placed over the promontory, and the tension adjusted. I then scrubbed back into the ca se to examine the vagina. The tension was further adjusted to resolve the cystocele and rectocele w ithout undue tension on the vagina. Two sutures of 2-0 [place]deep were used to attach the sacral arm of the mesh to the anterior longitudinal ligament at the level of the upper sacral 1 body below the intervertebral disk space. The excess mesh was then trimmed. The peritoneum was then closed over t he entire mesh with 3-0 V-Loc 90 suture. The robot was then undocked. All fascial incisions were c losed with 0 Vicryl, skin with 4-0 Monocryl and surgical adhesive. Cystoscopy was then performed. Both ureters had vigorous jets of urine. No mesh or sutures were se en within the bladder or urethra. No obvious pathology was seen. She did have an enlarged, dilated bladder, but otherwise was unremarkable. The Silva catheter was replaced. Vaginal packing was hanh aditya in the vagina. Anesthesia was reversed, and the patient taken to PACU awake, in stable conditio n. COMPLICATIONS: None. DISPOSITION: Patient stable to PACU. /[id number]/MODL
[2017-02-27] MEDS: LEVOTHYROXINE 88 MCG TAB PO SCH (06:23)
[2017-02-27] MEDS: IBUPROFEN 600 MG TAB PO SCH ×2 (13:34→19:46)
[2017-02-27] MEDS: DOCUSATE SODIUM 100 MG CAP PO SCH (19:45)
[2017-02-27] MEDS: MAGNESIUM HYDROXIDE 30 ML UDCUP PO PRN (20:00)
[2017-02-28] MEDS: IBUPROFEN 600 MG TAB PO SCH (03:15)
[2017-02-28] MEDS: LEVOTHYROXINE 88 MCG TAB PO SCH (06:17)
[2017-02-28] MEDS ORDERED: IBUPROFEN 600 MG TAB PO PRN (09:56)
[2017-02-28] MEDS: DOCUSATE SODIUM 100 MG CAP PO SCH ×2 (10:32→21:58)
[2017-02-28] MEDS ORDERED: POLYETHYLENE GLYCOL 3350 17 GM PKT PO PRN (10:39)
[2017-02-28] MEDS ORDERED: MAGNESIUM HYDROXIDE 30 ML UDCUP PO PRN (10:39)
[2017-02-28] MEDS ORDERED: BISACODYL 10 MG SUPP PR PRN (10:39)
[2017-02-28] MEDS ORDERED: LACTULOSE 20 GM/30 ML UDCUP PO PRN (10:39)
[2017-02-28] MEDS: MAGNESIUM HYDROXIDE 30 ML UDCUP PO PRN (12:33)
[2017-02-28 14:57] LABS: ANION GAP 7 mEq/L (8-16); CARBON DIOXIDE 30 mEq/l (22-31); CHLORIDE 100 mEq/L (97-110); CREATININE 0.5 mg/dL (0.6-1.0); GLOMERULAR FILTRATION RATE > 60; GLUCOSE 102 mg/dL (70-100); POTASSIUM 4.3 mEq/L (3.5-5.2); SODIUM 137 mEq/L (134-144)
--- NOTE | 2017-02-28 14:57 | CPEKG ---
Heart Rate: 65 RR Interval: 923 P-R Interval: 144 QRSD Interval: 88 QT Interval: 380 QTC Interval: 396 P [place]: 42 QRS [place]: -29 T Wave [place]: 73 EKG Severity - OTHERWISE NORMAL ECG - EKG Impression: SINUS RHYTHM EKG Impression: BORDERLINE LEFT AXIS DEVIATION Electronically Signed By: Lauri Castelan 28-Feb-2017 16:30:00
[2017-02-28 15:09] LABS: TROPONIN I < 0.012 ng/mL (0-0.034)
--- NOTE | 2017-02-28 16:15 | SOAPPROG ---
SOAP Progress Note Assessment/Plan: Assessment: Still with obstipation causing abdominal distension. No evidence of bowel obstruction or injury. Plan: 02/28/17 16:12 Fleets enema now. Evaluation of CP by hospitalist. Subjective: Had some CP earlier while ambulation. Asymptomatic now. Seen by hospitalist. CT ordered and EKG. Little flatus, still with oxygen requirement. Otherwise no pain. No nausea or vomiting. Objective: Vital Signs Temp Pulse Resp BP Pulse Ox 36.6 C 56 L 16 128/62 H 93 02/28/17 08:05 02/28/17 08:05 02/28/17 08:05 02/28/17 08:05 02/28/17 08:05 Microbiology 02/26/17 13:17 Urine Culture - Final Urine,Catheterized Laboratory Results 02/28/17 14:20 02/27/17 02/28/17 03/01/17 05:59 05:59 05:59 Intake Total 1000 1650 Output Total 875 2700 Balance 125 -1050 - Pending Discharge Pending Discharge Within 24 Hours: Yes Pending Discharge Date: 03/01/17 Pending Discharge Time: 11:00 Physical Exam - Physical Exam General Appearance: WD/WN, alert, no apparent distress Respiratory: lungs clear Cardiac/Chest: regular rate, rhythm Abdomen: normal bowel sounds (Incisions clean, dry, and intact.), non-tender, distended ICD10 Worksheet Patient Problems: Problems Problem Status Onset Generalized weakness Acute Severe dizziness Acute Urinary tract infection Acute
--- NOTE | 2017-02-28 16:21 | SOAPPROG ---
SOAP Progress Note Assessment/Plan: Assessment: Add stool softener and bowel regimen for constipation. No evidence of bowel obstruction or injury. Plan: 02/27/17 18:45 Not ready for discharge given oxygen requirement and distension. Subjective: No pain, distended, little flatus, oxygen requirement, Ambulating, voiding, loreta gen diet. No nausea or vomiting. Objective: Vital Signs Temp Pulse Resp BP Pulse Ox 36.6 C 56 L 16 128/62 H 93 02/28/17 08:05 02/28/17 08:05 02/28/17 08:05 02/28/17 08:05 02/28/17 08:05 Microbiology 02/26/17 13:17 Urine Culture - Final Urine,Catheterized Laboratory Results 02/28/17 14:20 02/27/17 02/28/17 03/01/17 05:59 05:59 05:59 Intake Total 1000 1650 Output Total 875 2700 Balance 125 -1050 - Pending Discharge Pending Discharge Within 24 Hours: No Pending Discharge Within 48 Hours: Yes Pending Discharge Date: 03/02/17 Pending Discharge Time: 11:00 Physical Exam - Physical Exam General Appearance: WD/WN, alert, no apparent distress Respiratory: lungs clear Cardiac/Chest: regular rate, rhythm Abdomen: normal bowel sounds, soft (Incisions clean, dry, and intact.), distended ICD10 Worksheet Patient Problems: Problems Problem Status Onset Cystocele Acute Generalized weakness Acute Severe dizziness Acute Urinary tract infection Acute - ICD10 Problem Qualifiers (1) Cystocele Qualifiers: Cystocele location: C
[2017-02-28] MEDS ORDERED: methylPREDNISolone SOD SUCC 125 MG/2 ML VIAL IVP ONE (16:30)
[2017-02-28] MEDS ORDERED: FAMOTIDINE 20 MG/NACL 50 ML IV ONE (16:30)
--- NOTE | 2017-02-28 16:31 | PDGENHP ---
History and Physical History and Physical: CONSULTATION HISTORY AND PHYSICAL CC: I am asked by Dr. Vazquez to evaluate and assist in the care of this patient with postoperative dyspnea. HISTORY: Ms. Garcia entered the hospital for elective surgery which has been performed so far without complication and with good success. This is a sacral colpopexy and a perineorrhaphy on February 26. The patient has done well in the postoperative setting she is eating not having any evidence of wound issues or fevers. Today the patient was set for discharge. She was up walking in the hallway with her friend when she felt short of breath in his described that her lips turned blue. She may have had some chest discomfort with this but it is difficult to discern that. At this point the patient does not recall any chest discomfort and is not having any chest discomfort now. There is no pain or swelling in her legs, no fever symptoms, no cough. She has never been diagnosed with any lung illnesses or respiratory difficulties but she does have a history of smoking until age 61, 1 pack daily. She has a stated history of a heart attack around 20 years ago. She was assessed hospital for that. She says that she did not have angiography or stent placement, so it is not entirely clear what exactly the diagnosis was. This was not [place] this country and no records are currently available. She has never had any heart failure or arrhythmia. There is no history of thromboembolic disease no family history of the same. There has not been any sign of bleeding so far. ROS: A comprehensive 10 system review revealed no other significant findings PAST MEDICAL HISTORY: "heart attack" Hypothyroidism scoliosis iodine allergy with a diffuse rash after a prior CT scan FAMILY MEDICAL HISTORY: relatives are healthy as far she knows, no cardiac lung or thromboembolic disease SOCIAL HISTORY: quit smoking 20 years ago after 1 pack daily habit prior to that MEDICATIONS: I have reviewed her Home and ordered medication list in the electronic health record PHYSICAL EXAMINATION: Vital Signs: her pulse rate is in the 50s but otherwise vitals are stable without any fever. She has been using 1 L nasal cannula oxygen here but there are no recorded hypoxemic numbers before her shortness of breath episode while walking today at which point her oxygen saturation was at 80. 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 This certainly is concerning for the possibility of pulmonary embolism though her symptoms do not include any pleuritic chest pain and there is no sign of DVT at the bedside. None elicited some important to check for this. I suspect however that this most likely is a combination of chronic smoking induced lung injury, scoliosis, and some atelectasis in the postoperative setting. There is at this time no sign of heart failure or heart ischemia. PLANS: - I have ordered a CT scan of the chest to rule out PE. -Due to her iodine allergy she will need to be pretreated with steroids and Benadryl - at the moment she appears stable on no specific treatment is recommended until we have further information
[2017-02-28] MEDS ORDERED: IOPAMIDOL (ISOVUE-300) 100 ML BTL IV ONE (19:30)
[2017-02-28] MEDS ORDERED: IOPAMIDOL (ISOVUE 370) 100 ML BTL IV ONE (19:34)
[2017-02-28] MEDS: SENNOSIDES/DOCUSATE SODIUM TAB PO SCH (21:58)
[2017-03-01] MEDS: LEVOTHYROXINE 88 MCG TAB PO SCH (06:16)
[2017-03-01 08:53] VITALS: BP 132/71; PULSE 49; RESP 17; TEMP 97.8; O2SAT 99
[2017-03-01] MEDS: DOCUSATE SODIUM 100 MG CAP PO SCH (09:01)
[2017-03-01] MEDS: SENNOSIDES/DOCUSATE SODIUM TAB PO SCH (09:01)
--- NOTE | 2017-03-01 12:09 | SOAPPROG ---
SOAP Progress Note Assessment/Plan: Assessment: Add stool softener and bowel regimen for constipation. No evidence of bowel obstruction or injury. Doing well, oxygen sat 92% on room air. Plan: 02/27/17 18:45 Not ready for discharge given oxygen requirement and distension. 03/01/17 12:08 Home, f/u in 2 weeks. Subjective: No pain, no SOB or room air. Objective: Vital Signs Temp Pulse Resp BP Pulse Ox 36.6 C 49 L 17 132/71 H 99 03/01/17 07:50 03/01/17 07:50 03/01/17 07:50 03/01/17 07:50 03/01/17 07:50 Microbiology 02/26/17 13:17 Urine Culture - Final Urine,Catheterized Laboratory Results 02/28/17 14:20 02/28/17 03/01/17 03/02/17 05:59 05:59 05:59 Intake Total 1650 Output Total 2700 Balance -1050 - Pending Discharge Pending Discharge Within 24 Hours: Yes Pending Discharge Date: 03/02/17 Pending Discharge Time: 11:00 ICD10 Worksheet Patient Problems: Problems Problem Status Onset Cystocele Acute Generalized weakness Acute Severe dizziness Acute Urinary tract infection Acute - ICD10 Problem Qualifiers (1) Cystocele Qualifiers: Cystocele location: C
--- NOTE | 2017-03-01 14:59 | HOSPPROG ---
Hospitalist Progress Note Assessment/Plan: I spent 25+ minutes at bedside with the patient today She feels better with no sob O2 sats better No chest pain Today she mentions noting some swollen lymph nodes in L axilla, she feels they may be due to systemic infectious illness she had 2 weeks ago. No other concerning sxs vitals good resps relaxed lungs clear CT with no PE but some bronchiectasis (has hx of 1 episode of pneumonia 2 yrs ago) I suspect copd, atelectasis from surgery, and the bronchiectasis all played a role in her sxs yesterday. She does not need any specific treatment now Recommended she exercise daily Recommended she follow up with Dr Toledo in 2-4 weeks to review. If she has recurrent resp infections or dyspneic episodes over time, may need to go on rotating antibiotic therapy or other treatments. Also should review the adenopathy w Dr Toledo in 2-4 weeks to assess for resolution. Objective: Vital Signs Temp Pulse Resp BP Pulse Ox 36.6 C 49 L 17 132/71 H 99 03/01/17 07:50 03/01/17 07:50 03/01/17 07:50 03/01/17 07:50 03/01/17 07:50 Microbiology 02/26/17 13:17 Urine Culture - Final Urine,Catheterized Laboratory Results 02/28/17 14:20 02/28/17 03/01/17 03/02/17 06:59 06:59 06:59 Intake Total 1650 Output Total 2700 Balance -1050 ICD10 Worksheet Patient Problems: Problems Problem Status Onset Cystocele Acute Generalized weakness Acute Severe dizziness Acute Urinary tract infection Acute
== END 2017-03-01 15:50 | disposition home or self-care (01) | DRG 747 ==
LOC: F3E 09:32 → FOB 17:26 → OBSVTOIN 02-28 10:18
PROVIDERS: ADMIT Obstetrics & Gynecology; ATTEND Obstetrics & Gynecology
DX: N81.3 Complete uterovaginal prolapse (principal); R09.02 Hypoxemia
CPT/HCPCS: C1763; J0690; J1170; J1200; J1885; J2405; J2704; J3010; Q9967

== ENCOUNTER → 2017-03-12 | Outpatient (CLI) | payer OTHER | LOC: FIMAGING 12:38 | PROVIDERS: ATTEND Family Medicine | DX: N64.59 Other signs and symptoms in breast (principal); R22.32 Localized swelling, mass and lump, left upper limb | CPT/HCPCS: 76641; G0204 ==

== ENCOUNTER 2017-05-01 15:36 | Emergency (ER) | payer OTHER ==
[2017-05-01 15:42] VITALS: RESP 16; TEMP 98.2
--- NOTE | 2017-05-01 16:00 | EDPHY ---
H & P Time Seen by Provider: 05/01/17 15:49 HPI/ROS: Chief complaint. Abdominal pain HPI. 81-year-old female presents with 2 day history of abdominal cramping that is generalized. No nausea or vomiting. No radiation of her pain to her back. She has complaint of black tarry stool today. On February 26 the patient had a bladder suspension and prior to that had a significant urinary tract infection with some confusion. No urinary symptoms currently. No fever. Symptoms are not worse with movement or eating. ROS Constitutional. no fever/chills, no weakness Eyes. no problems with vision ENT. no sore throat, no nasal drainage Cardiovascular. no chest pain Respiratory. no shortness of breath, no cough Abdominal. Crampy mid abdominal pain and possible black tarry stool . no problems urinating MS. no calf pain/swelling, no neck/back pain, no joint pain Skin. no rash Lymph. no swollen glands Neuro. no headache, no dizziness, no difficulty walking or with speech Past Medical/Surgical History: Past medical history is significant for GA, hypothyroid, osteoporosis, GERD, depression, bladder suspension Social History: , nonsmoker, no alcohol Smoking Status: Former smoker Physical Exam: General Appearance: Alert pleasant well-developed female mild distress vital signs are stable Eyes: Pupils equal and round no pallor or injection. ENT, Mouth: Mucous membranes are moist. Respiratory: There are no retractions, lungs are clear to auscultation. Cardiovascular: Regular rate and rhythm. Gastrointestinal: Abdomen is soft and nontender, no masses, bowel sounds normal. Stool is brown on rectal exam Neurological: Awake and alert, sensory and motor exams grossly normal. Skin: Warm and dry, no rashes. Musculoskeletal: Neck is supple nontender. Extremities symmetrical, full range of motion. Psychiatric: Patient is oriented X 3, there is no agitation. Constitutional: Initial Vital Signs Temperature (C) 36.8 C 05/01/17 15:38 Heart Rate 71 05/01/17 15:38 Respiratory Rate 16 05/01/17 15:38 Blood Pressure 136/88 H 05/01/17 15:38 O2 Sat (%) 93 05/01/17 15:38 O2 Delivery Mode Room Air Allergies/Adverse Reactions: IODINE DYE Allergy (Intermediate, Uncoded 02/04/17 16:33) BLISTERS Home Medications: Medication Instructions Recorded Herbals/Supplements -Info Only 1 ea PO DAILY 01/13/15 Levothyroxine [Synthroid 88 mcg 88 mcg PO DAILY06 01/13/15 (*)] Docusate Sodium [Colace 100 MG (*)] 200 mg PO BID #0 cap 03/01/17 Hydrocodone/APAP 5/325 [[place] 1 - 2 tab PO Q4HRS PRN #0 tab 03/01/17 5/325 (*)] Ibuprofen [Motrin (*)] 600 mg PO Q6 PRN #0 tab 03/01/17 Polyethylene Glycol 3350 [Miralax 17 gm PO DAILY PRN #0 pkt 03/01/17 17 gm (*)] Sennosides/Docusate Sodium 1 - 2 tab PO BID #0 tab 03/01/17 [Senokot-S] Medical Decision Making - Diagnostics Imaging Results: Imaging Impressions Abdomen CT 05/01/17 16:29 Impression: 1. Constipation with associated fluid-filled distention of the stomach and small bowel. 2. Marked thoracolumbar scoliosis. 3. Postsurgical changes of a urinary bladder suspension procedure. Exam results discussed with Dr. Wilton Galvan at 6:[address] abdomen and pelvis with IV contrast reviewed by me and discussed with Dr. Carcamo shows evidence of constipation. No small-bowel obstruction. No ascites. Findings are consistent with constipation Procedures: IV normal saline. Patient is allergic to iodine and so she is pretreated prior to CT with oral Pepcid, IV Benadryl, IV Solu-Medrol. ED Course/Re-evaluation: Re-evaluation at 6:20 p.m.--patient is stable. She and I discussed lab and imaging studies. We discussed treatment plan including criteria for return and importance of follow-up and further evaluation. She expresses understanding and agreement Differential Diagnosis: With recent surgery I considered small-bowel obstruction as well as abscess. She has had recent significant urinary tract infection which is also been considered and ruled out. CT is consistent with constipation - Data Points Laboratory Results: Laboratory Results 05/01/17 13:57 05/01/17 13:57 05/01/17 05/01/17 05/01/17 16:25 16:20 13:57 WBC RBC Hgb Hct MCV MCH MCHC RDW Plt Count MPV Neut % (Auto) Lymph % (Auto) [place] % (Auto) Eos % (Auto) Baso % (Auto) Nucleat RBC Rel Count Absolute Neuts (auto) Absolute Lymphs (auto) Absolute Monos (auto) Absolute Eos (auto) Absolute Basos (auto) Absolute Nucleated RBC Immature Gran % Immature Gran # Sodium 138 mEq/L mEq/L (134-144) Potassium 4.5 mEq/L mEq/L (3.5-5.2) Chloride 101 mEq/L mEq/L (97-110) Carbon Dioxide 27 mEq/l mEq/l (22-31) Anion Gap 10 mEq/L mEq/L (8-16) BUN 18 mg/dL mg/dL (7-23) Creatinine 1.0 mg/dL mg/dL (0.6-1.0) Estimated GFR 53 Glucose 77 mg/dL mg/dL (70-100) Calcium 10.0 mg/dL mg/dL (8.5-10.4) Total Bilirubin 0.8 mg/dL mg/dL (0.1-1.4) Conjugated Bilirubin 0.3 mg/dL mg/dL (0.0-0.5) Unconjugated Bilirubin 0.5 mg/dL mg/dL (0.0-1.1) AST 31 IU/L IU/L (14-46) ALT 31 IU/L IU/L (9-52) Alkaline Phosphatase 63 IU/L IU/L (38-126) Total Protein 7.4 g/dL g/dL (6.3-8.2) Albumin 4.5 g/dL g/dL (3.5-5.0) Lipase 95.0 IU/L IU/L (23-300) Urine Color YELLOW Urine Appearance CLEAR Urine pH 8.0 H (5.0-7.5) Ur Specific [place] 1.005 (1.002-1.030) Urine Protein NEGATIVE (NEGATIVE) Urine Ketones NEGATIVE (NEGATIVE) Urine Blood NEGATIVE (NEGATIVE) Urine Nitrate NEGATIVE (NEGATIVE) Urine Bilirubin NEGATIVE (NEGATIVE) Urine Urobilinogen NEGATIVE EU EU (0.2-1.0) Ur Leukocyte Esterase NEGATIVE (NEGATIVE) Urine RBC 1-3 /hpf /hpf (0-3) Urine WBC 1-3 /hpf /hpf (0-3) Ur Epithelial Cells TRACE /lpf /lpf (NONE-1+) Urine Glucose NEGATIVE (NEGATIVE) Stool Occult Bld Scrn NEGATIVE (NEGATIVE) 05/01/17 13:57 WBC 11.39 10^3/uL H 10^3/uL (3.80-9.50) RBC 4.55 10^6/uL 10^6/uL (4.18-5.33) Hgb 14.5 g/dL g/dL (12.6-16.3) Hct 42.8 % % (38.0-47.0) MCV 94.1 fL fL (81.5-99.8) MCH 31.9 pg pg (27.9-34.1) MCHC 33.9 g/dL g/dL (32.4-36.7) RDW 13.4 % % (11.5-15.2) Plt Count 262 10^3/uL 10^3/uL (150-400) MPV 10.0 fL fL (8.7-11.7) Neut % (Auto) 55.4 % % (39.3-74.2) Lymph % (Auto) 38.4 % % (15.0-45.0) [place] % (Auto) 4.7 % % (4.5-13.0) Eos % (Auto) 0.7 % % (0.6-7.6) Baso % (Auto) 0.5 % % (0.3-1.7) Nucleat RBC Rel Count 0.0 % % (0.0-0.2) Absolute Neuts (auto) 6.31 10^3/uL 10^3/uL (1.70-6.50) Absolute Lymphs (auto) 4.37 10^3/uL H 10^3/uL (1.00-3.00) Absolute Monos (auto) 0.54 10^3/uL 10^3/uL (0.30-0.80) Absolute Eos (auto) 0.08 10^3/uL 10^3/uL (0.03-0.40) Absolute Basos (auto) 0.06 10^3/uL 10^3/uL (0.02-0.10) Absolute Nucleated RBC 0.00 10^3/uL 10^3/uL (0-0.01) Immature Gran % 0.3 % % (0.0-1.1) Immature Gran # 0.03 10^3/uL 10^3/uL (0.00-0.10) Sodium Potassium Chloride Carbon Dioxide Anion Gap BUN Creatinine Estimated GFR Glucose Calcium Total Bilirubin Conjugated Bilirubin Unconjugated Bilirubin AST ALT Alkaline Phosphatase Total Protein Albumin Lipase Urine Color Urine Appearance Urine pH Ur Specific [place] Urine Protein Urine Ketones Urine Blood Urine Nitrate Urine Bilirubin Urine Urobilinogen Ur Leukocyte Esterase Urine RBC Urine WBC Ur Epithelial Cells Urine Glucose Stool Occult Bld Scrn Medications Given: Discontinued Medications Diphenhydramine HCl (Benadryl Injection) 12.5 mg IVP EDNOW ONE Stop: 05/01/17 16:36 Last Admin: 05/01/17 17:09 Dose: 12.5 mg Famotidine (Pepcid) 40 mg PO EDNOW ONE Stop: 05/01/17 16:36 Last Admin: 05/01/17 17:09 Dose: 40 mg Sodium Chloride (Ns) 1,000 mls @ 0 mls/hr IV ONCE ONE; Wide Open PRN Reason: Protocol Stop: 05/01/17 16:29 Last Admin: 05/01/17 16:50 Dose: 1,000 mls Methylprednisolone Sodium Succinate (Solu-Medrol) 125 mg IVP EDNOW ONE Stop: 05/01/17 16:36 Last Admin: 05/01/17 17:09 Dose: 125 mg Departure - Departure Disposition: Home, Routine, Self-Care Clinical Impression: Abdominal pain Condition: Good Instructions: Constipation (ED) Additional Instructions: Increased fluids including fruit and prune juice. Milk of magnesia, MiraLax, magnesium citrate, para Colace that may be purchased at the grocery store. Return for worsening pain, fever, vomiting. Recheck in 2 days if not improved Referrals: Jasmyn Toledo MD [Primary Care Provider] - 2-3 days, if not improved
[2017-05-01] MEDS ORDERED: NS 1,000 ML IV ONE (16:28)
[2017-05-01] MEDS ORDERED: FAMOTIDINE 20 MG TAB PO ONE (16:35)
[2017-05-01] MEDS ORDERED: methylPREDNISolone SOD SUCC 125 MG/2 ML VIAL IVP ONE (16:35)
[2017-05-01 16:46] LABS: % IMMATURE GRANULYOCYTES 0.3 % (0.0-1.1); ABSOLUTE IMMATURE GRANULOCYTES 0.03 10^3/uL (0.00-0.10); ADD DIFF? NO; ADD MORPH? NO; ADD SCAN? NO; ATYPICAL LYMPHOCYTE FLAG 40 (0-99); FRAGMENT RBC FLAG 0 (0-99); HEMATOCRIT 42.8 % (38.0-47.0); HEMOGLOBIN 14.5 g/dL (12.6-16.3); LEFT SHIFT FLG 0 (0-99); LIPEMIA HEMOLYSIS FLAG 90 (0-99); MEAN CELL HEMOGLOBIN 31.9 pg (27.9-34.1); MEAN CELL HEMOGLOBIN CONCENTR. 33.9 g/dL (32.4-36.7); MEAN CELL VOLUME 94.1 fL (81.5-99.8); PLATELET CLUMPS FLAG 0 (0-99); PLATELET COUNT 262 10^3/uL (150-400); RED BLOOD CELL COUNT 4.55 10^6/uL (4.18-5.33); RED CELL DISTRIBUTION WIDTH 13.4 % (11.5-15.2)
[2017-05-01] MEDS ORDERED: IOPAMIDOL (ISOVUE-300) 100 ML BTL ONE (16:50)
[2017-05-01 16:53] LABS: ALANINE AMINOTRANSFERASE 31 IU/L (9-52); ALBUMIN 4.5 g/dL (3.5-5.0); ALKALINE PHOSPHATASE 63 IU/L (38-126); ANION GAP 10 mEq/L (8-16); ASPARTATE AMINOTRANSFERASE 31 IU/L (14-46); BILIRUBIN,TOTAL 0.8 mg/dL (0.1-1.4); BILIRUBIN-CONJUGATED 0.3 mg/dL (0.0-0.5); BILIRUBIN-UNCONJUGATED 0.5 mg/dL (0.0-1.1); CARBON DIOXIDE 27 mEq/l (22-31); CHLORIDE 101 mEq/L (97-110); GLOMERULAR FILTRATION RATE 53; GLUCOSE 77 mg/dL (70-100); POTASSIUM 4.5 mEq/L (3.5-5.2); SODIUM 138 mEq/L (134-144); TOTAL PROTEIN 7.4 g/dL (6.3-8.2)
[2017-05-01 17:01] LABS: COLOR YELLOW; LEUKOCYTE ESTERASE,URINE NEGATIVE (NEGATIVE); NITRITE,URINE NEGATIVE (NEGATIVE)
[2017-05-01 19:28] VITALS: BP 129/85; PULSE 70; O2SAT 95
== END 2017-05-01 19:26 | disposition home or self-care (01) ==
DX: R10.9 Unspecified abdominal pain (principal); I25.2 Old myocardial infarction; E86.9 Volume depletion, unspecified; Z87.891 Personal history of nicotine dependence
CPT/HCPCS: 74177; 96361; 96374; 96375; 99285; J1200; Q9967

== ENCOUNTER 2017-06-24 17:38 | Emergency (ER) | payer OTHER ==
[2017-06-24 17:48] VITALS: TEMP 97.9
--- NOTE | 2017-06-24 18:11 | EDPHY ---
H & P Time Seen by Provider: 06/24/17 17:50 HPI/ROS: CHIEF COMPLAINT: Weakness and chills HISTORY OF PRESENT ILLNESS: Patient arrives with a friend who says she has been weak for several months. For the last 2-3 days she developed a sore throat and some dizziness which she describes as vertigo which is worse bending over or lying down or looking to the left. Chills and subjective fevers over the last 2 days with increasing weakness. Her friend described confusion earlier today but not now. Symptoms weakness and chills are moderate although she still can walk. Not associated with dysuria hematuria vomiting diarrhea or cough. Not better worse with anything. REVIEW OF SYSTEMS: Eye: no change in vision ENT: As in HPI, no ear symptoms Cardiac: no chest pain or syncope Pulmonary: no cough or SOB Abdomen: no vomiting, diarrhea, abdominal pain Musculoskeletal: no back pain Skin: no rash Neuro: no headache Constitutional: HPI : no urinary symptoms A comprehensive 10 point review of systems is otherwise negative aside from elements mentioned in the history of present illness. PAST MEDICAL HISTORY: Discharge summary dated 02/10/2017 personally reviewed includes UTI, hypertension, coronary disease with history of myocardial infarction, breast reduction. Social history: No recent foreign travel General Appearance: Alert and conversant, cooperative. Eyes: No scleral icterus. Nystagmus when looking to the left. ENT, Mouth: Normal mucous membranes. Normal pharynx without erythema or exudate. No trismus. No gum swelling. Normal tympanic membranes. No drooling , no stridor, handles secretions easily and normally. Respiratory: Normal respiratory effort, breath sounds equal, lungs are clear to auscultation. Cardiovascular: Regular rate and rhythm. Gastrointestinal: Abdomen is soft and non tender. Neurological: Alert and oriented x3. Normally conversant. Face symmetric, normal movement and sensation in all extremities. Ambulatory without ataxia. No pronator drift and normal [id number] bilaterally. Not confused, she knows the year and month and place. Fluent speech. Skin: Warm and dry, no rashes. No petechiae or purpura. Musculoskeletal: No peripheral edema and no joint swelling. Normal range of motion of the neck. Psychiatric: Not agitated. Emergency Department course/MDM: Patient presents with what clinically is benign peripheral vertigo with symptoms triggered by looking to the left with nystagmus, extinguishes at rest, no focal neurological deficits elicited on exam. Plan for chest x-ray and urinalysis as well as CBC and chemistries. Strep swab is sent. 1844: Normal chemistry panel. Meclizine 25 mg orally and 1 L IV normal saline. 1904: Results reviewed with patient and friend. I think it is more likely to be a viral syndrome giving her symptoms along with peripheral vertigo. She does not have cerebellar deficit on examination. I do not find indication she needs antibiotics. I think it is reasonable and safe to discharge her with symptomatic treatment. Smoking Status: Former smoker Constitutional: Initial Vital Signs Temperature (C) 36.6 C 06/24/17 17:44 Heart Rate 64 06/24/17 17:44 Respiratory Rate 18 06/24/17 17:44 Blood Pressure 198/98 H 06/24/17 17:44 O2 Sat (%) 93 06/24/17 17:44 O2 Delivery Mode Room Air Allergies/Adverse Reactions: IODINE DYE Allergy (Intermediate, Uncoded 02/04/17 16:33) BLISTERS Home Medications: Medication Instructions Recorded Herbals/Supplements -Info Only 1 ea PO DAILY 01/13/15 Levothyroxine [Synthroid 88 mcg 88 mcg PO DAILY06 01/13/15 (*)] Docusate Sodium [Colace 100 MG (*)] 200 mg PO BID #0 cap 03/01/17 Hydrocodone/APAP 5/325 [[place] 1 - 2 tab PO Q4HRS PRN #0 tab 03/01/17 5/325 (*)] Ibuprofen [Motrin (*)] 600 mg PO Q6 PRN #0 tab 03/01/17 Polyethylene Glycol 3350 [Miralax 17 gm PO DAILY PRN #0 pkt 03/01/17 17 gm (*)] Sennosides/Docusate Sodium 1 - 2 tab PO BID #0 tab 03/01/17 [Senokot-S] Meclizine HCl [Meclizine HCl 25 mg 25 mg PO Q6 PRN #15 tab 06/24/17 (RX,OTC)] Medical Decision Making - Diagnostics EKG Interpretation: 12-lead EKG interpreted by me; official reading is in trace master. My interpretation is sinus rhythm rate 55 left axis Differential Diagnosis: Differential diagnosis considered for dizziness including but not limited to peripheral and central causes of vertigo, orthostatic causes including dehydration, and blood loss, infection such as UTI or pneumonia. - Data Points Laboratory Results: Laboratory Results 06/24/17 18:10 06/24/17 18:10 06/24/17 06/24/17 06/24/17 Unknown 18:10 18:10 WBC RBC Hgb Hct MCV MCH MCHC RDW Plt Count MPV Neut % (Auto) Lymph % (Auto) [place] % (Auto) Eos % (Auto) Baso % (Auto) Nucleat RBC Rel Count Absolute Neuts (auto) Absolute Lymphs (auto) Absolute Monos (auto) Absolute Eos (auto) Absolute Basos (auto) Absolute Nucleated RBC Immature Gran % Immature Gran # Sodium 136 mEq/L mEq/L (134-144) Potassium 4.1 mEq/L mEq/L (3.5-5.2) Chloride 99 mEq/L mEq/L (97-110) Carbon Dioxide 27 mEq/l mEq/l (22-31) Anion Gap 10 mEq/L mEq/L (8-16) BUN 16 mg/dL mg/dL (7-23) Creatinine 0.6 mg/dL mg/dL (0.6-1.0) Estimated GFR > 60 Glucose 79 mg/dL mg/dL (70-100) Calcium 9.7 mg/dL mg/dL (8.5-10.4) Urine Color PALE YELLOW Urine Appearance CLEAR Urine pH 7.0 (5.0-7.5) Ur Specific [place] 1.006 (1.002-1.030) Urine Protein NEGATIVE (NEGATIVE) Urine Ketones NEGATIVE (NEGATIVE) Urine Blood NEGATIVE (NEGATIVE) Urine Nitrate NEGATIVE (NEGATIVE) Urine Bilirubin NEGATIVE (NEGATIVE) Urine Urobilinogen NEGATIVE EU EU (0.2-1.0) Ur Leukocyte Esterase NEGATIVE (NEGATIVE) Urine Glucose NEGATIVE (NEGATIVE) Group A Strep Screen Group A Strep DNA Pending 06/24/17 06/24/17 18:10 18:04 WBC 11.59 10^3/uL H 10^3/uL (3.80-9.50) RBC 4.40 10^6/uL 10^6/uL (4.18-5.33) Hgb 14.1 g/dL g/dL (12.6-16.3) Hct 41.5 % % (38.0-47.0) MCV 94.3 fL fL (81.5-99.8) MCH 32.0 pg pg (27.9-34.1) MCHC 34.0 g/dL g/dL (32.4-36.7) RDW 13.2 % % (11.5-15.2) Plt Count 268 10^3/uL 10^3/uL (150-400) MPV 9.2 fL fL (8.7-11.7) Neut % (Auto) 44.6 % % (39.3-74.2) Lymph % (Auto) 48.3 % H % (15.0-45.0) [place] % (Auto) 5.3 % % (4.5-13.0) Eos % (Auto) 1.1 % % (0.6-7.6) Baso % (Auto) 0.4 % % (0.3-1.7) Nucleat RBC Rel Count 0.0 % % (0.0-0.2) Absolute Neuts (auto) 5.17 10^3/uL 10^3/uL (1.70-6.50) Absolute Lymphs (auto) 5.60 10^3/uL H 10^3/uL (1.00-3.00) Absolute Monos (auto) 0.61 10^3/uL 10^3/uL (0.30-0.80) Absolute Eos (auto) 0.13 10^3/uL 10^3/uL (0.03-0.40) Absolute Basos (auto) 0.05 10^3/uL 10^3/uL (0.02-0.10) Absolute Nucleated RBC 0.00 10^3/uL 10^3/uL (0-0.01) Immature Gran % 0.3 % % (0.0-1.1) Immature Gran # 0.03 10^3/uL 10^3/uL (0.00-0.10) Sodium Potassium Chloride Carbon Dioxide Anion Gap BUN Creatinine Estimated GFR Glucose Calcium Urine Color Urine Appearance Urine pH Ur Specific [place] Urine Protein Urine Ketones Urine Blood Urine Nitrate Urine Bilirubin Urine Urobilinogen Ur Leukocyte Esterase Urine Glucose Group A Strep Screen NEGATIVE (NEGATIVE) Group A Strep DNA Medications Given: Discontinued Medications Acetaminophen (Tylenol) 650 mg PO EDNOW ONE Stop: 06/24/17 19:09 Last Admin: 06/24/17 19:24 Dose: 650 mg Sodium Chloride (Ns) 1,000 mls @ 0 mls/hr IV EDNOW ONE; Wide Open PRN Reason: Protocol Stop: 06/24/17 18:46 Last Admin: 06/24/17 18:58 Dose: 1,000 mls Meclizine HCl (Meclizine Hcl) 25 mg PO EDNOW ONE Stop: 06/24/17 18:40 Last Admin: 06/24/17 18:58 Dose: 25 mg Departure - Departure Disposition: Home, Routine, Self-Care Clinical Impression: Vertigo, Acute viral syndrome Condition: Good Instructions: Benign Paroxysmal Positional Vertigo (ED), Viral Syndrome (ED) Referrals: Jasmyn Toledo MD [Primary Care Provider] - As per Instructions Prescriptions: Meclizine HCl [Meclizine HCl 25 mg (RX,OTC)] 25 mg PO Q6 PRN #15 tab PRN Reason: Dizziness
--- NOTE | 2017-06-24 18:20 | CPEKG ---
Heart Rate: 55 RR Interval: 1091 P-R Interval: 188 QRSD Interval: 86 QT Interval: 424 QTC Interval: 406 P [place]: 71 QRS [place]: -36 T Wave [place]: 56 EKG Severity - OTHERWISE NORMAL ECG - EKG Impression: SINUS RHYTHM EKG Impression: LEFT AXIS DEVIATION Electronically Signed By: Mickey Farfan 24-Jun-2017 18:24:41
[2017-06-24 18:22] LABS: % IMMATURE GRANULYOCYTES 0.3 % (0.0-1.1); ABSOLUTE IMMATURE GRANULOCYTES 0.03 10^3/uL (0.00-0.10); ADD DIFF? NO; ADD MORPH? NO; ADD SCAN? NO; ATYPICAL LYMPHOCYTE FLAG 50 (0-99); FRAGMENT RBC FLAG 0 (0-99); HEMATOCRIT 41.5 % (38.0-47.0); HEMOGLOBIN 14.1 g/dL (12.6-16.3); LEFT SHIFT FLG 0 (0-99); LIPEMIA HEMOLYSIS FLAG 90 (0-99); MEAN CELL VOLUME 94.3 fL (81.5-99.8); MEAN PLATELET VOLUME 9.2 fL (8.7-11.7); PLATELET CLUMPS FLAG 10 (0-99); PLATELET COUNT 268 10^3/uL (150-400); RED CELL DISTRIBUTION WIDTH 13.2 % (11.5-15.2)
[2017-06-24 18:29] LABS: COLOR PALE YELLOW; LEUKOCYTE ESTERASE,URINE NEGATIVE (NEGATIVE); NITRITE,URINE NEGATIVE (NEGATIVE)
[2017-06-24] MEDS ORDERED: MECLIZINE HCL 25 MG TAB PO ONE (18:39)
[2017-06-24 18:41] LABS: ANION GAP 10 mEq/L (8-16); CALCIUM 9.7 mg/dL (8.5-10.4); CARBON DIOXIDE 27 mEq/l (22-31); CHLORIDE 99 mEq/L (97-110); CREATININE 0.6 mg/dL (0.6-1.0); GLOMERULAR FILTRATION RATE > 60; GLUCOSE 79 mg/dL (70-100); POTASSIUM 4.1 mEq/L (3.5-5.2); SODIUM 136 mEq/L (134-144)
[2017-06-24] MEDS ORDERED: NS 1,000 ML IV ONE (18:45)
[2017-06-24] MEDS ORDERED: ACETAMINOPHEN 325 MG TAB PO ONE (19:08)
[2017-06-24 19:47] VITALS: BP 187/77; PULSE 68; RESP 20; O2SAT 98
== END 2017-06-24 19:47 | disposition home or self-care (01) ==
DX: R42 Dizziness and giddiness (principal); B34.9 Viral infection, unspecified; I10 Essential (primary) hypertension; I25.10 Atherosclerotic heart disease of native coronary artery without angina pectoris; I25.2 Old myocardial infarction; E86.9 Volume depletion, unspecified; Z87.891 Personal history of nicotine dependence

== ENCOUNTER → 2017-07-25 | Outpatient (CLI) | payer OTHER ==
[~2017-07-25] MED LIST changes: +GADOBUTROL 10 ML VIAL IVP ONE; -LR 1,000 ML IV ONE; -PHENAZOPYRIDINE HCL 200 MG TAB PO ONE; -ceFAZolin 2 GM/DEXTROSE 100 ML IV ONE
== END ==
LOC: FIMAGING 14:43
PROVIDERS: ATTEND Internal Medicine Hematology & Oncology
DX: G31.9 Degenerative disease of nervous system, unspecified (principal); C91.10 Chronic lymphocytic leukemia of B-cell type not having achieved remission
CPT/HCPCS: 70553; A9585

== ENCOUNTER 2017-09-01 12:54 | Inpatient (IN) | payer OTHER ==
--- NOTE | 2017-09-01 14:03 | EDPHY ---
H & P Time Seen by Provider: 09/01/17 13:44 HPI/ROS: CHIEF COMPLAINT: Shortness of breath HISTORY OF PRESENT ILLNESS: 82-year-old female presents with shortness of breath. Onset of generalized weakness 2 days ago. Yesterday she awoke with shortness of breath. The shortness of breath was persistent throughout the day , but worse last night. Associated with increasing generalized weakness and inability to walk unassisted. She has been hanging on to the furniture and garza to ambulate. No chest pain, cough or fever. REVIEW OF SYSTEMS: Constitutional: No fever, no chills Eyes: No visual changes ENT: No sore throat Respiratory: No cough Gastrointestinal: No nausea, no vomiting, no abdominal pain Genitourinary: no dysuria Musculoskeletal: No leg pain or swelling Skin: No rash Neurological: No headache Psychiatric: No depression Past Medical/Surgical History: CAD ALL Cystocele surgery in 02/2017 UTI Social History: PCP: Dr. Toledo Lives in own home Smoking Status: Former smoker Physical Exam: General Appearance: Alert, pleasant, nontoxic-appearing Eyes: Pupils equal and round, no conjunctival pallor or injection ENT, Mouth: Mucous membranes moist Neck: Normal inspection Respiratory: tachypnea, respiratory rate 40, lungs are clear to auscultation Cardiovascular: Regular rate and rhythm Gastrointestinal: Abdomen is soft and nontender Neurological: A&O, nonfocal exam Skin: Warm and dry, no rash Extremities: Nontender, no pedal edema Psychiatric: Mood and affect normal Constitutional: Initial Vital Signs Temperature (C) 36.4 C 09/01/17 12:57 Heart Rate 70 09/01/17 12:57 Respiratory Rate 19 09/01/17 12:57 Blood Pressure 140/74 H 09/01/17 12:57 O2 Sat (%) 94 09/01/17 12:57 O2 Delivery Mode Room Air Allergies/Adverse Reactions: IODINE DYE Allergy (Intermediate, Uncoded 09/01/17 12:57) BLISTERS Home Medications: Medication Instructions Recorded Levothyroxine [Synthroid 88 mcg 88 mcg PO DAILY06 01/13/15 (*)] Medical Decision Making - Diagnostics EKG Interpretation: EKG interpreted by me reveals normal sinus rhythm, rate 61, LAD, LVH. ED Course/Re-evaluation: This patient presents with generalized weakness and shortness of breath. EKG reveals no evidence of ischemia or dysrhythmia. Chest x-ray is unremarkable, without infiltrate. Laboratory tests, including troponin, BNP and D-dimer are normal. Unclear etiology of shortness of breath. She does have a history of recurrent UTIs after cystocele surgery. Urinalysis is pending. She ambulated throughout the emergency department and her oxygen saturation remained greater than 90%. She felt short of breath with ambulation and was unsteady with walking. Given her generalized weakness and difficulty ambulating, she will need to be admitted for further evaluation. The hospitalist service was consulted for admission. Differential Diagnosis: Differential diagnosis includes though it is not limited to pneumonia, pneumothorax, pulmonary embolism, aortic dissection, pericarditis, acute coronary syndrome. - Data Points Laboratory Results: Laboratory Results 09/01/17 14:15 09/01/17 14:15 Medications Given: Discontinued Medications Acetaminophen (Tylenol) 650 mg PO Q4HRS PRN PRN Reason: Pain, Mild/Fever, Can Take PO Stop: 02/28/18 16:42 Last Admin: 09/02/17 10:25 Dose: 650 mg Levothyroxine Sodium (Synthroid) 88 mcg PO DAILY06 [place] Stop: 03/01/18 05:59 Last Admin: 09/03/17 04:40 Dose: 88 mcg Lorazepam (Ativan) 0.5 mg PO Q4HRS PRN PRN Reason: Anxiety, Able to Take PO Stop: 02/28/18 17:13 Last Admin: 09/02/17 21:25 Dose: 0.5 mg Departure - Departure Disposition: [facility] Inpatient Acute Clinical Impression: Acute dyspnea, Generalized weakness Condition: Good
--- NOTE | 2017-09-01 14:13 | CPEKG ---
Heart Rate: 61 RR Interval: 984 P-R Interval: 184 QRSD Interval: 86 QT Interval: 388 QTC Interval: 391 P [place]: 67 QRS [place]: -33 T Wave [place]: 41 EKG Severity - ABNORMAL ECG - EKG Impression: SINUS RHYTHM EKG Impression: LEFT AXIS DEVIATION EKG Impression: PROBABLE LEFT VENTRICULAR HYPERTROPHY EKG Impression: ANTERIOR Q WAVES, POSSIBLY DUE TO LVH Electronically Signed By: Keyla Dickinson 01-Sep-2017 14:56:57
--- NOTE | 2017-09-01 14:13 | CPEKG ---
Heart Rate: 61 RR Interval: 984 P-R Interval: 184 QRSD Interval: 86 QT Interval: 388 QTC Interval: 391 P [place]: 67 QRS [place]: -33 T Wave [place]: 41 EKG Severity - ABNORMAL ECG - EKG Impression: SINUS RHYTHM EKG Impression: LEFT AXIS DEVIATION EKG Impression: PROBABLE LEFT VENTRICULAR HYPERTROPHY EKG Impression: ANTERIOR Q WAVES, POSSIBLY DUE TO LVH Electronically Signed By: Keyla Dickinson 01-Sep-2017 14:56:57
[2017-09-01 14:27] LABS: PLATELET COUNT 333 10^3/uL (150-400)
[2017-09-01] MEDS ORDERED: ONDANSETRON DISINTEGRATING 4 MG TAB PO PRN (16:43)
[2017-09-01] MEDS ORDERED: ACETAMINOPHEN 325 MG TAB PO PRN (16:43)
[2017-09-01] MEDS ORDERED: ONDANSETRON 4 MG/2 ML VIAL IVP PRN (16:43)
--- NOTE | 2017-09-01 17:40 | GHP ---
[f rep st] HISTORY AND PHYSICAL DATE OF ADMISSION: 09/01/2017 CHIEF COMPLAINT: Shortness of breath. HISTORY OF PRESENT ILLNESS: An 82-year-old female, remote history of coronary artery disease and an [place] 20 years ago. Otherwise she has been actually fairly healthy. She is quite active at baseline. She said last night she developed shortness of breath. There was no wheezing or chest pain involved. She felt like she could not get a good enough breath. She has been coughing some, which has been d ry over the last several days. She has also had a sore throat for almost 3 weeks. She had chills fo r the last 2 days. No dysuria. No abdominal pain. No nausea, vomiting. She had decreased appetite is lost a few pounds in the last week. She does have a history of CLL and there was a lymph node found recently but further scanning did not show any other nodes. She sees Dr. Acosta for that. REVIEW OF SYSTEMS: A 10-point review of system obtained and otherwise was negative. PAST MEDICAL HISTORY: 1. Coronary artery disease, status post [place] 20 years ago. 2. Hypothyroidism. 3. CLL. 4. History of cystocele and rectocele surgery earlier this year. MEDICATIONS: Synthroid. SOCIAL HISTORY: Quit smoking 20 years ago. She is and is from [place] originally. She does have a neighbor who pays close attention to her. Otherwise all her family is in [place]. FAMILY HISTORY: Reviewed, noncontributory. PHYSICAL EXAM: VITAL SIGNS: Afebrile, blood pressure is 166/83, heart rate 65, oxygen saturation 93 % on room air. GENERAL: The patient is well developed, no apparent distress. HEENT: Nonicteric scl erae. Extraocular movements intact. Moist mucous membranes. Throat: Some mild erythema but no exu date. NECK: Supple. No cervical adenopathy. LUNGS: Good effort. Decreased breath sounds but braeden ar. CARDIOVASCULAR: Regular rate and rhythm. No murmurs, gallops. ABDOMEN: Positive bowel sounds . Soft, nontender, nondistended. No hepatosplenomegaly. EXTREMITIES: No clubbing, cyanosis, or ed rob. SKIN: Without rash. Warm, dry, intact. NEUROLOGIC: Moving all 4 extremities. PSYCH: Milagros l mood and affect. LABS: White count slightly elevated at 10, but the absolute lymphocytes are possibly driving this be cause it is slightly high. No anemia though. D-dimer is negative. Troponin is negative. BNP is no rmal. EKG personally interpreted shows normal sinus rhythm with mild T-wave flattening. Chest x-ray personally reviewed, interpreted shows no acute pathology. ASSESSMENT: This is an 82-year-old female, presenting with fatigue and shortness of breath. PLAN: Fatigue and shortness of breath. Unclear etiology at this time. D-dimer is negative. Her BN P is negative. Her troponin is also negative. She does not have any chest pain. She is not having any wheezing. She is a former smoker but has not had any problems with chronic obstructive pulmonary disease. She does have symptoms that would suggest some type of infectious process. We will get a respiratory viral panel and a strep swab. We will also check an echocardiogram, although BNP is nega tive. We will see what the results of these studies are and then proceed. Probably pulmonary functi on tests would be the next step. /[id number]/MODL
[2017-09-01] MEDS: LORazepam 0.5 MG TAB PO PRN (22:23)
[2017-09-02] MEDS: LEVOTHYROXINE 88 MCG TAB PO SCH (04:58)
--- NOTE | 2017-09-02 10:42 | HOSPPROG ---
Hospitalist Progress Note Assessment/Plan: Dyspnea on exertion in 82 yo female with h/o CAD - echo shows nl EF, no WMA. Trop neg x2. -plan for exercise stress test with NM in am -outpt PFT's if w/u unrevealing CLL - followed by Dr. Acosta, unclear if her symptoms are related to this Hypothyroidism - cont levothyroxine DNR Dispo - inpt, needs additional night while awaiting stress test in am (had caffeine this am and can't do today) Subjective: Pt feels ok. She is up ambulating in PT room with therapy team. No CP or SOB with activity today, but she notes her dyspnea seems to occur with exertion. Also notes dark stool, which is formed and appears dark brown, not melanotic. Objective: Vital Signs Temp Pulse Resp BP Pulse Ox 36.4 C 55 L 16 133/65 H 92 09/02/17 07:43 09/02/17 07:43 09/02/17 07:43 09/02/17 07:43 09/02/17 07:43 09/01/17 09/02/17 09/03/17 05:59 05:59 05:59 Intake Total 240 Balance 240 - Physical Exam Constitutional: no apparent distress Eyes: PERRL Ears, Nose, Mouth, Throat: moist mucous membranes Cardiovascular: regular rate and rhythym, no murmur, rub, or gallop Respiratory: no respiratory distress, clear to auscultation Gastrointestinal: normoactive bowel sounds, soft, non-tender abdomen Skin: warm Musculoskeletal: full muscle strength Neurologic: AAOx3 Psychiatric: interacting appropriately ICD10 Worksheet Patient Problems: Problems Problem Status Onset Acute dyspnea Acute Generalized weakness Acute Cystocele Acute Severe dizziness Acute Urinary tract infection Acute
--- NOTE | 2017-09-02 11:56 | ASMTCASEMG ---
Living Arrangements What is your living Answers: Alone arrangement? Who do you live with? Type Of Residence What kind of residence do Answers: House you live in? Discharge Plan Comments Coordination Status Comments Notes: Pt is a 82 y/o female admitted for acute dyspnea and generalized weakness. CM spoke w/ VEENA Cha regarding d/c POC. PT, OT and a stress test have been ordered. OT is recommending that pt go home independent. CM awaiting for other recommendations from therapies. Needs are TBD at this time. CM available for d/c needs. Date Signed: 09/02/2017 11:55 AM Electronically Signed By:JESÚS Roland
--- NOTE | 2017-09-02 12:28 | ECHO ---
[email or web address] [address] [address] Main: [phone] Fax: Transthoracic Echocardiogram Name: CLAUDIA DAVE MR#: [id number] Study Date: 09/02/2017 Study Time: 08:05 AM Date of : 1935 Age: 82 year(s) Height: 177.8 cm (70 in.) Weight: 61.24 kg (135 lb.) BSA: 1.77 m2 Gender: Female Examination: Echo Indication: Cardiac: dyspnea Image Quality: Contrast: Requested by: Roddy Cui BP: 155 mmHg/82 mmHg Heart Rate: Rhythm: Indication: Cardiac: dyspnea Procedure Staff Taproom Attendant: Mily Torrez Reading Physician: Vasquez Downing Requesting Provider: Conclusions: Normal global systolic LV function. The ejection fraction is estimated to be 65-70 %. Mild mitral valve regurgitation is present. Trivial aortic valve regurgitation. Mild tricuspid regurgitation is present. Measurements: Chambers Valvular Assessment AV/MV Valvular Assessment TV/PV Normal Normal Normal Name Value Range Name Value Range Name Value Range Ao Vilma (MM): 3.3 cm (2.2 cm-3.7 AV Vmax: 1.09 m/s (1 m/s-1.7 TR Vmax: 2.73 mm/s ( - ) cm) m/s) TR PGmax: 30 mmHg ( - ) IVSd (2D): 0.6 cm (0.6 cm-1.1 AV maxP mmHg ( - ) syst. PAP: 35 mmHg ( - ) cm) MV E Vmax: 0.83 m/s ( - ) LVDd (2D): 3.6 cm (3.9 cm-5.3 MV A Vmax: 0.78 m/s ( - ) cm) MV E/A: 1.06 ( - ) LVDs (2D): 2.5 cm (2.1 cm-4 cm) LVPWd (2D): 0.7 cm ( - ) LVEF (MOD4): 70 % (>=55 %) EF Range: 65-70 % Continued Measurements: Chambers Valvular Assessment AV/MV Valvular Assessment TV/PV Name Value Name Value Name Value LADs: 2.9 cm MV E/E' Septal: 16.70 CVP (est.): 5 mmHg LADs Lon.9 cm MV E/E' Lateral: 12.20 LA Area: 11.3 cm2 Patient: CLAUDIA DAVE Study Date: 09/02/2017 Page 1 of 2 08:05 AM Findings: Left Ventricle: Normal size left ventricle. No LV hypertrophy. Normal global systolic LV function. The ejection fraction is estimated to be 65-70 %. No regional wall motion abnormality. Right Ventricle: Normal size right ventricle. There is a moderator band noted in the right ventricle. Left Atrium: The left atrium is normal in size. Right Atrium: The right atrium is normal in size. Mitral Valve: Mild mitral annular calcification. Mild mitral valve regurgitation is present. Aortic Valve: The aortic valve is normal in appearance and function. The aortic valve is tri-leaflet. Trivial aortic valve regurgitation. Tricuspid Valve: The tricuspid valve is normal in appearance and function. Mild tricuspid regurgitation is present. The pulmonary artery pressure is normal. Pulmonic Valve: The pulmonic valve is normal in appearance and function. Aorta: The aorta is normal. Pericardium: No pericardial effusion. (No Signature Object) Patient: CLAUDIA DAVE Study Date: 09/02/2017 Page 2 of 2 08:05 AM [id number]
--- NOTE | 2017-09-02 12:28 | ECHO ---
[email or web address] [address] [address] Main: [phone] Fax: Transthoracic Echocardiogram Name: CLAUDIA DAVE MR#: [id number] Study Date: 09/02/2017 Study Time: 08:05 AM Date of : 1935 Age: 82 year(s) Height: 177.8 cm (70 in.) Weight: 61.24 kg (135 lb.) BSA: 1.77 m2 Gender: Female Examination: Echo Indication: Cardiac: dyspnea Image Quality: Contrast: Requested by: Roddy Cui BP: 155 mmHg/82 mmHg Heart Rate: Rhythm: Indication: Cardiac: dyspnea Procedure Staff Grain Broker And Market Operator: Mily Torrez Reading Physician: Vasquez Downing Requesting Provider: Conclusions: Normal global systolic LV function. The ejection fraction is estimated to be 65-70 %. Mild mitral valve regurgitation is present. Trivial aortic valve regurgitation. Mild tricuspid regurgitation is present. Measurements: Chambers Valvular Assessment AV/MV Valvular Assessment TV/PV Normal Normal Normal Name Value Range Name Value Range Name Value Range Ao Vilma (MM): 3.3 cm (2.2 cm-3.7 AV Vmax: 1.09 m/s (1 m/s-1.7 TR Vmax: 2.73 mm/s ( - ) cm) m/s) TR PGmax: 30 mmHg ( - ) IVSd (2D): 0.6 cm (0.6 cm-1.1 AV maxP mmHg ( - ) syst. PAP: 35 mmHg ( - ) cm) MV E Vmax: 0.83 m/s ( - ) LVDd (2D): 3.6 cm (3.9 cm-5.3 MV A Vmax: 0.78 m/s ( - ) cm) MV E/A: 1.06 ( - ) LVDs (2D): 2.5 cm (2.1 cm-4 cm) LVPWd (2D): 0.7 cm ( - ) LVEF (MOD4): 70 % (>=55 %) EF Range: 65-70 % Continued Measurements: Chambers Valvular Assessment AV/MV Valvular Assessment TV/PV Name Value Name Value Name Value LADs: 2.9 cm MV E/E' Septal: 16.70 CVP (est.): 5 mmHg LADs Lon.9 cm MV E/E' Lateral: 12.20 LA Area: 11.3 cm2 Patient: CLAUDIA DAVE Study Date: 09/02/2017 Page 1 of 2 08:05 AM Findings: Left Ventricle: Normal size left ventricle. No LV hypertrophy. Normal global systolic LV function. The ejection fraction is estimated to be 65-70 %. No regional wall motion abnormality. Right Ventricle: Normal size right ventricle. There is a moderator band noted in the right ventricle. Left Atrium: The left atrium is normal in size. Right Atrium: The right atrium is normal in size. Mitral Valve: Mild mitral annular calcification. Mild mitral valve regurgitation is present. Aortic Valve: The aortic valve is normal in appearance and function. The aortic valve is tri-leaflet. Trivial aortic valve regurgitation. Tricuspid Valve: The tricuspid valve is normal in appearance and function. Mild tricuspid regurgitation is present. The pulmonary artery pressure is normal. Pulmonic Valve: The pulmonic valve is normal in appearance and function. Aorta: The aorta is normal. Pericardium: No pericardial effusion. (No Signature Object) Patient: CLAUDIA DAVE Study Date: 09/02/2017 Page 2 of 2 08:05 AM [id number]
--- NOTE | 2017-09-02 12:28 | ECHO ---
[email or web address] [address] [address] Main: [phone] Fax: Transthoracic Echocardiogram Name: CLAUDIA DAVE MR#: [id number] Study Date: 09/02/2017 Study Time: 08:05 AM Date of : 1935 Age: 82 year(s) Height: 177.8 cm (70 in.) Weight: 61.24 kg (135 lb.) BSA: 1.77 m2 Gender: Female Examination: Echo Indication: Cardiac: dyspnea Image Quality: Contrast: Requested by: Roddy Cui BP: 155 mmHg/82 mmHg Heart Rate: Rhythm: Indication: Cardiac: dyspnea Procedure Staff Structural Biologist: Mily Torrez Reading Physician: Vasquez Downing Requesting Provider: Conclusions: Normal global systolic LV function. The ejection fraction is estimated to be 65-70 %. Mild mitral valve regurgitation is present. Trivial aortic valve regurgitation. Mild tricuspid regurgitation is present. Measurements: Chambers Valvular Assessment AV/MV Valvular Assessment TV/PV Normal Normal Normal Name Value Range Name Value Range Name Value Range Ao Vilma (MM): 3.3 cm (2.2 cm-3.7 AV Vmax: 1.09 m/s (1 m/s-1.7 TR Vmax: 2.73 mm/s ( - ) cm) m/s) TR PGmax: 30 mmHg ( - ) IVSd (2D): 0.6 cm (0.6 cm-1.1 AV maxP mmHg ( - ) syst. PAP: 35 mmHg ( - ) cm) MV E Vmax: 0.83 m/s ( - ) LVDd (2D): 3.6 cm (3.9 cm-5.3 MV A Vmax: 0.78 m/s ( - ) cm) MV E/A: 1.06 ( - ) LVDs (2D): 2.5 cm (2.1 cm-4 cm) LVPWd (2D): 0.7 cm ( - ) LVEF (MOD4): 70 % (>=55 %) EF Range: 65-70 % Continued Measurements: Chambers Valvular Assessment AV/MV Valvular Assessment TV/PV Name Value Name Value Name Value LADs: 2.9 cm MV E/E' Septal: 16.70 CVP (est.): 5 mmHg LADs Lon.9 cm MV E/E' Lateral: 12.20 LA Area: 11.3 cm2 Patient: CLAUDIA DAVE Study Date: 09/02/2017 Page 1 of 2 08:05 AM Findings: Left Ventricle: Normal size left ventricle. No LV hypertrophy. Normal global systolic LV function. The ejection fraction is estimated to be 65-70 %. No regional wall motion abnormality. Right Ventricle: Normal size right ventricle. There is a moderator band noted in the right ventricle. Left Atrium: The left atrium is normal in size. Right Atrium: The right atrium is normal in size. Mitral Valve: Mild mitral annular calcification. Mild mitral valve regurgitation is present. Aortic Valve: The aortic valve is normal in appearance and function. The aortic valve is tri-leaflet. Trivial aortic valve regurgitation. Tricuspid Valve: The tricuspid valve is normal in appearance and function. Mild tricuspid regurgitation is present. The pulmonary artery pressure is normal. Pulmonic Valve: The pulmonic valve is normal in appearance and function. Aorta: The aorta is normal. Pericardium: No pericardial effusion. (No Signature Object) Patient: CLAUDIA DAVE Study Date: 09/02/2017 Page 2 of 2 08:05 AM [id number]
[2017-09-02] MEDS: LORazepam 0.5 MG TAB PO PRN (21:25)
[2017-09-03] MEDS: LEVOTHYROXINE 88 MCG TAB PO SCH (04:40)
--- NOTE | 2017-09-03 09:32 | PDMN ---
Medical Necessity Medical necessity: change to IP; los>2mn for ongoing eval for CHAMBERS, requiring stress test 09/03/17; comorbid CLL that may be contributing to symptoms; per progress note and order 11/02/16
--- NOTE | 2017-09-03 11:25 | ASMTCMCOM ---
CM Note CM Note Notes: PT and OT have cleared pt to discharge home independent. CM available for changes. Date Signed: 09/03/2017 11:24 AM Electronically Signed By:JESÚS Roland
--- NOTE | 2017-09-03 12:04 | CPR ---
[f rep st] NONINVASIVE CARDIAC PROCEDURE REPORT TYPE OF PROCEDURE: Treadmill exercise test. REASON FOR TEST: 1. Chest pain. 2. History of myocardial cardial infarction. FINDINGS: Resting EKG shows a regular sinus rhythm with a rate of 65. No arrhythmias. No ischemic changes noted. She was unable to walk on the treadmill with an elevation. However, we devised a protocol for her wh ere she walked flat at 2 miles an hour for 9 minutes and tolerated it well. She had no chest pain. Peak blood pressure was 138/60. Peak heart rate was 84. There were no EKG changes during her walkin g test. Recovery blood pressure 120/80. Resting heart rate 73. She had no chest pain or EKG change s during this test. RECOMMENDATION: I would recommend that she follow up with Dr. Trent Knowles. /[id number]/MODL
[2017-09-03 12:25] VITALS: BP 147/78; PULSE 69; RESP 14; TEMP 97.4; O2SAT 91
--- NOTE | 2017-09-03 16:02 | ASDISCHSUM ---
Discharge Information Plan Status:Home with No Needs Medically Cleared to Leave:09/02/2017 Discharge Date:09/03/2017 03:10 PM CM D/C Disposition: ADT D/C Disposition:Home, Routine, Self-Care Projected Discharge Date:09/03/2017 12:00 AM Transportation at D/C: Discharge Delay Reason: Follow-Up Date:09/03/2017 12:00 AM Discharge Slot: Final Diagnosis: Placement Information Patient Contact Information Contact Name:JAYMIERAPHAELSOURAV Relationship:Cynthia Address: City: [facility] Phone: [facility]/[employer] Code: Email: Financial Information Financial Class: Primary Plan Desc:MEDICARE INPATIENT Primary Plan Number:[id number] [facility] Secondary Plan Number:[id number] Assessment Information [facility] Initial CM Assessment Living Arrangements What is your living Answers: Alone arrangement? Who do you live with? Type Of Residence What kind of residence do Answers: House you live in? Discharge Plan Comments Coordination Status Comments Notes: Pt is a 82 y/o female admitted for acute dyspnea and generalized weakness. CM spoke w/ VEENA Cha regarding d/c POC. PT, OT and a stress test have been ordered. OT is recommending that pt go home independent. CM awaiting for other recommendations from therapies. Needs are TBD at this time. CM available for d/c needs. Date Signed: 09/02/2017 11:55 AM Electronically Signed By:JESÚS Roland [facility] CM Progress Note CM Note CM Note Notes: PT and OT have cleared pt to discharge home independent. CM available for changes. Date Signed: 09/03/2017 11:24 AM Electronically Signed By:JESÚS Roland Intervention Information Intervention Type:*Incorrect Registration Date of Service:09/02/2017 10:47 AM Patient Type:Inpatient Staff Member:VEENA Prado Susan Hours: Discipline: Severity: Comment:
--- NOTE | 2017-09-03 16:02 | ASDISCHSUM ---
Discharge Information Plan Status:Home with No Needs Medically Cleared to Leave:09/02/2017 Discharge Date:09/03/2017 03:10 PM CM D/C Disposition: ADT D/C Disposition:Home, Routine, Self-Care Projected Discharge Date:09/03/2017 12:00 AM Transportation at D/C: Discharge Delay Reason: Follow-Up Date:09/03/2017 12:00 AM Discharge Slot: Final Diagnosis: Placement Information Patient Contact Information Contact Name:JAYMIERAPHAELSOURAV Relationship:Cynthia Address: City: [facility] Phone: [facility]/[employer] Code: Email: Financial Information Financial Class: Primary Plan Desc:MEDICARE INPATIENT Primary Plan Number:[id number] Secondary [facility] Desc[facility] Secondary Plan Number:[id number] Assessment Information [facility] Initial CM Assessment Living Arrangements What is your living Answers: Alone arrangement? Who do you live with? Type Of Residence What kind of residence do Answers: House you live in? Discharge Plan Comments Coordination Status Comments Notes: Pt is a 82 y/o female admitted for acute dyspnea and generalized weakness. CM spoke w/ VEENA Cha regarding d/c POC. PT, OT and a stress test have been ordered. OT is recommending that pt go home independent. CM awaiting for other recommendations from therapies. Needs are TBD at this time. CM available for d/c needs. Date Signed: 09/02/2017 11:55 AM Electronically Signed By:JESÚS Roland [facility] CM Progress Note CM Note CM Note Notes: PT and OT have cleared pt to discharge home independent. CM available for changes. Date Signed: 09/03/2017 11:24 AM Electronically Signed By:JESÚS Roland Intervention Information Intervention Type:*Incorrect Registration Date of Service:09/02/2017 10:47 AM Patient Type:Inpatient Staff Member:VEENA Prado Susan Hours: Discipline: Severity: Comment:
--- NOTE | 2017-09-03 16:02 | ASDISCHSUM ---
Discharge Information Plan Status:Home with No Needs Medically Cleared to Leave:09/02/2017 Discharge Date:09/03/2017 03:10 PM CM D/C Disposition: ADT D/C Disposition:Home, Routine, Self-Care Projected Discharge Date:09/03/2017 12:00 AM Transportation at D/C: Discharge Delay Reason: Follow-Up Date:09/03/2017 12:00 AM Discharge Slot: Final Diagnosis: Placement Information Patient Contact Information Contact Name:JAYMIERAPHAELSOURAV Relationship:Cynthia Address: City: [facility] Phone: [facility]/[employer] Code: Email: Financial Information Financial Class: Primary Plan Desc:MEDICARE INPATIENT Primary Plan Number:[id number] Secondary [facility] Desc[facility] Secondary Plan Number:[id number] Assessment Information [facility] Initial CM Assessment Living Arrangements What is your living Answers: Alone arrangement? Who do you live with? Type Of Residence What kind of residence do Answers: House you live in? Discharge Plan Comments Coordination Status Comments Notes: Pt is a 82 y/o female admitted for acute dyspnea and generalized weakness. CM spoke w/ VEENA Cha regarding d/c POC. PT, OT and a stress test have been ordered. OT is recommending that pt go home independent. CM awaiting for other recommendations from therapies. Needs are TBD at this time. CM available for d/c needs. Date Signed: 09/02/2017 11:55 AM Electronically Signed By:JESÚS Roland [facility] CM Progress Note CM Note CM Note Notes: PT and OT have cleared pt to discharge home independent. CM available for changes. Date Signed: 09/03/2017 11:24 AM Electronically Signed By:JESÚS Roland Intervention Information Intervention Type:*Incorrect Registration Date of Service:09/02/2017 10:47 AM Patient Type:Inpatient Staff Member:VEENA Prado Susan Hours: Discipline: Severity: Comment:
--- NOTE | 2017-09-03 18:21 | GDS ---
[f rep st] DISCHARGE SUMMARY DISCHARGE DIAGNOSES: 1. Dyspnea. 2. Chronic lymphocytic leukemia, followed by Dr. Acosta. 3. Hypothyroidism. 4. Coronary artery disease. CONSULTANTS: None. IMAGING STUDIES/PROCEDURES: 1. Echocardiogram September 01, 2017, showed normal LV function with an ejection fraction of 65% to 70 %. No regional wall motion abnormalities. Mild mitral regurgitation. Mild tricuspid regurgitation. No pericardial effusion. 2. Chest x-ray September 01, 2017, shows extensive scoliosis, which is unchanged from prior. 3. Exercise treadmill stress test September 03, 2017, was performed, and she walked flat at 2 miles an hour for 9 minutes and tolerated it well without EKG changes or chest pain or signs of ischemia. HISTORY: For details, please see dictated history and physical dated September 01, 2017. In brief, th e patient is an 82-year-old female with history of hypothyroidism, coronary artery disease, status po st [place] 20 years ago and CLL and severe scoliosis, who presents to the emergency department with shortn ess of breath. She was admitted to the hospital for evaluation. HOSPITAL COURSE: Patient was admitted to the medical-surgical unit. D-dimer was negative. BNP and troponin were also negative. She was chest pain-free. Had no wheezing or other signs of respiratory distress. Chest x-ray was unrevealing. Echocardiogram showed normal LV function. She has no histo ry of COPD. Exercise treadmill stress test did not suggest cardiac ischemia as a source. Respirator y viral panel was negative for viral infection. At the time of discharge, I recommend she have outpa tient pulmonary function tests. I suspect her shortness of breath may be related to her severe scoli osis contributing to restriction of her respiratory capacity. Patient feels well and wishes discharg e home. DISPOSITION: Patient is discharged home in stable condition. FOLLOWUP: 1. Dr. Trent Knowles, Cardiology. 2. Dr. Jasmyn Toledo, primary care. 3. Recommend outpatient pulmonary function tests. DISCHARGE MEDICATIONS: Patient will continue her outpatient Synthroid. There are no new medications on discharge. /[id number]/MODL
== END 2017-09-03 15:10 | disposition home or self-care (01) | DRG 204 ==
LOC: INTOOBSV 15:14 → F3E 16:06 → OBSVTOIN 09-02 16:40
PROVIDERS: ADMIT Internal Medicine; ATTEND Internal Medicine
DX: R06.00 Dyspnea, unspecified (principal); C91.10 Chronic lymphocytic leukemia of B-cell type not having achieved remission; E03.9 Hypothyroidism, unspecified; I25.10 Atherosclerotic heart disease of native coronary artery without angina pectoris; I25.2 Old myocardial infarction; M41.9 Scoliosis, unspecified; Z87.891 Personal history of nicotine dependence; Z66 Do not resuscitate
CPT/HCPCS: 92610-GN; 97161-GP; 97165-GO; G0378; G8978-GP-CI; G8979-GP-CI; G8987-GO-CI; G8988-GO-CH; G8989-GO-CH; G8996-GN-CI; G8997-GN-CI; G8998-GN-CI

== ENCOUNTER 2018-02-09 12:40 | Inpatient (IN) | payer OTHER ==
--- NOTE | 2018-02-09 13:14 | EDPHY ---
H & P Time Seen by Provider: 02/09/18 12:59 HPI/ROS: Chief complaint. Shortness of breath HPI. 82-year-old female with history of COPD has had increasing difficulty with breathing for 1 week. No cough or fever. No chest discomfort. Dyspnea on exertion with activities that she normally does. After climbing a flight stairs at home they found her pulse oximeter to be 76% on room air. She normally uses oxygen just at night. She also notes trouble swallowing this morning. She did not choke but has a hard time initiating the swallow. She has had similar symptoms previously of difficulty breathing. ROS Constitutional. no fever/chills, no weakness Eyes. no problems with vision ENT. no sore throat, no nasal drainage; difficulty swallowing Respiratory. shortness of breath, no cough; dyspnea on exertion Abdominal. no abdominal pain, no nausea/vomiting, no diarrhea . no problems urinating MS. no calf pain/swelling, no neck/back pain, no joint pain Skin. no rash Lymph. no swollen glands Neuro. no headache, no dizziness, no difficulty walking or with speech Past Medical/Surgical History: [place], hypothyroid, COPD, GERD, depression, scoliosis Social History: Single, nonsmoker, no alcohol Smoking Status: Former smoker Physical Exam: General Appearance: Alert well-developed female mild distress vital signs significant for O2 saturation 91% on room air Eyes: Pupils equal and round no pallor or injection. ENT, Mouth: Mucous membranes are moist. Respiratory: There are no retractions, lungs are clear to auscultation. Cardiovascular: Regular rate and rhythm. Gastrointestinal: Abdomen is soft and nontender, no masses, bowel sounds normal. Neurological: Awake and alert, sensory and motor exams grossly normal. Skin: Warm and dry, no rashes. Musculoskeletal: Neck is supple nontender. Extremities symmetrical, full range of motion. Psychiatric: Patient is oriented X 3, there is no agitation. Constitutional: Initial Vital Signs Temperature (C) 36.5 C 02/09/18 12:45 Heart Rate 73 02/09/18 12:45 Respiratory Rate 20 02/09/18 12:45 Blood Pressure 150/67 H 02/09/18 12:45 O2 Sat (%) 91 L 02/09/18 12:45 O2 Delivery Mode Room Air Allergies/Adverse Reactions: IODINE DYE Allergy (Intermediate, Uncoded 02/09/18 12:44) BLISTERS Home Medications: Medication Instructions Recorded Levothyroxine [Synthroid 88 mcg 88 mcg PO DAILY06 01/13/15 (*)] Duoneb (*) 02/09/18 Medical Decision Making - Diagnostics EKG Interpretation: EKG interpreted by me shows normal sinus rhythm normal interval. There is left axis deviation. QRS shows a left anterior fascicular block. No significant ST elevation or depression. There is no arrhythmia. The rate is 65 Imaging Results: Imaging Impressions Chest X-Ray 02/09/18 13:31 Impression: Chronic versus recurrent anterior retrosternal infiltrate versus scarring related to the patient's severe thoracic- lumbar scoliosis. A prior CT in February 2017 demonstrated lingular and right middle lobe bronchiectasis and mucous plugging. Soft Tissue Neck X-Ray 02/09/18 13:31 Impression: Possibly abnormal subglottic trachea. Consider noncontrast CT. Results called to Dr. Galvan at 2:38 PM. . Procedures: IV normal saline, monitor DuoNeb updraft ED Course/Re-evaluation: Re-evaluation at 2:50 p.m.. Patient is stable. Patient and I discussed imaging and lab results. We discussed treatment plan including recommendation for admission. She expresses understanding and agreement Blood cultures are obtained. IV Levaquin following blood cultures I consulted and discussed the case with Dr. Saldaña, hospitalist, who agrees to the admission I consulted and discussed case with ENT who will see the patient in the hospital. Differential Diagnosis: Patient has a history of COPD. She has significant hypoxia. She has pneumonia on her chest x-ray. She also has an abnormal soft tissue lateral neck. We will have ENT consult and scope this patient - Data Points Laboratory Results: Laboratory Results 02/09/18 13:50 02/09/18 13:50 02/09/18 02/09/18 02/09/18 15:05 13:50 13:50 WBC RBC Hgb Hct MCV MCH MCHC RDW Plt Count MPV Neut % (Auto) Lymph % (Auto) Bibb % (Auto) Eos % (Auto) Baso % (Auto) Nucleat RBC Rel Count Absolute Neuts (auto) Absolute Lymphs (auto) Absolute Monos (auto) Absolute Eos (auto) Absolute Basos (auto) Absolute Nucleated RBC Immature Gran % Immature Gran # PT 12.8 SEC SEC (12.0-15.0) INR 0.94 (0.83-1.16) APTT 28.3 SEC SEC (23.0-38.0) VBG Lactic Acid 1.1 mmol/L mmol/L (0.7-2.1) Sodium Potassium Chloride Carbon Dioxide Anion Gap BUN Creatinine Estimated GFR Glucose Calcium Total Bilirubin 0.7 mg/dL mg/dL (0.1-1.4) Troponin I NT-Pro-B Natriuret Pep 02/09/18 02/09/18 13:50 13:50 WBC 11.63 10^3/uL H 10^3/uL (3.80-9.50) RBC 4.48 10^6/uL 10^6/uL (4.18-5.33) Hgb 14.2 g/dL g/dL (12.6-16.3) Hct 41.9 % % (38.0-47.0) MCV 93.5 fL fL (81.5-99.8) MCH 31.7 pg pg (27.9-34.1) MCHC 33.9 g/dL g/dL (32.4-36.7) RDW 12.8 % % (11.5-15.2) Plt Count 275 10^3/uL 10^3/uL (150-400) MPV 9.1 fL fL (8.7-11.7) Neut % (Auto) 49.6 % % (39.3-74.2) Lymph % (Auto) 44.4 % % (15.0-45.0) Bibb % (Auto) 4.4 % L % (4.5-13.0) Eos % (Auto) 0.8 % % (0.6-7.6) Baso % (Auto) 0.5 % % (0.3-1.7) Nucleat RBC Rel Count 0.0 % % (0.0-0.2) Absolute Neuts (auto) 5.78 10^3/uL 10^3/uL (1.70-6.50) Absolute Lymphs (auto) 5.16 10^3/uL H 10^3/uL (1.00-3.00) Absolute Monos (auto) 0.51 10^3/uL 10^3/uL (0.30-0.80) Absolute Eos (auto) 0.09 10^3/uL 10^3/uL (0.03-0.40) Absolute Basos (auto) 0.06 10^3/uL 10^3/uL (0.02-0.10) Absolute Nucleated RBC 0.00 10^3/uL 10^3/uL (0-0.01) Immature Gran % 0.3 % % (0.0-1.1) Immature Gran # 0.03 10^3/uL 10^3/uL (0.00-0.10) PT INR APTT VBG Lactic Acid Sodium 135 mEq/L mEq/L (135-145) Potassium 4.3 mEq/L mEq/L (3.5-5.2) Chloride 94 mEq/L L mEq/L (97-110) Carbon Dioxide 32 mEq/l H mEq/l (22-31) Anion Gap 9 mEq/L mEq/L (8-16) BUN 15 mg/dL mg/dL (7-23) Creatinine 0.6 mg/dL mg/dL (0.6-1.0) Estimated GFR > 60 Glucose 84 mg/dL mg/dL (70-100) Calcium 9.2 mg/dL mg/dL (8.5-10.4) Total Bilirubin Troponin I < 0.012 ng/mL ng/mL (0.000-0.034) NT-Pro-B Natriuret Pep 124 pg/mL pg/mL (0-450) Medications Given: Levofloxacin/Dextrose (Levaquin 750 Mg (Premix)) 150 mls @ 100 mls/hr IV EDNOW ONE PRN Reason: Protocol Stop: 02/09/18 16:19 Last Admin: 02/09/18 15:24 Dose: 150 mls Discontinued Medications Albuterol/Ipratropium (Duoneb) 3 ml IH EDNOW ONE Stop: 02/09/18 13:31 Last Admin: 02/09/18 13:53 Dose: 3 ml Departure - Departure Disposition: [facility] Inpatient Acute Clinical Impression: Pneumonia Qualifiers: Pneumonia type: due to unspecified organism Laterality: right Lung location: lower lobe of lung Qualified Code(s): J18.1 - Lobar pneumonia, unspecified organism Condition: Fair Referrals: NONE *PRIMARY CARE P,. [Primary Care Provider] - As per Instructions
[2018-02-09] MEDS ORDERED: IPRATROPIUM/ALBUTEROL 3 ML DEYVIAL IH ONE (13:30)
--- NOTE | 2018-02-09 13:42 | CPEKG ---
Heart Rate: 65 RR Interval: 923 P-R Interval: 176 QRSD Interval: 88 QT Interval: 392 QTC Interval: 408 P Bowie: 87 QRS Bowie: -47 T Wave Bowie: 70 EKG Severity - ABNORMAL ECG - EKG Impression: SINUS RHYTHM EKG Impression: LEFT ANTERIOR FASCICULAR BLOCK EKG Impression: NONSPECIFIC T ABNORMALITIES, ANT-LAT LEADS Electronically Signed By: Wilton Galvan 09-Feb-2018 13:45:04
[2018-02-09 13:55] LABS: PLATELET COUNT 275 10^3/uL (150-400)
[2018-02-09 15:02] LABS: INR 0.94 (0.83-1.16); PROTIME(PATIENT) 12.8 SEC (12.0-15.0)
[2018-02-09] MEDS ORDERED: ONDANSETRON 4 MG/2 ML VIAL IVP PRN (16:45)
[2018-02-09] MEDS ORDERED: ACETAMINOPHEN 325 MG TAB PO PRN (16:45)
[2018-02-09] MEDS ORDERED: ONDANSETRON DISINTEGRATING 4 MG TAB PO PRN (16:45)
[2018-02-09] MEDS ORDERED: ALBUTEROL 3 ML DEYVIAL IH PRN (16:45)
[2018-02-09] MEDS: BUDESONIDE 0.5 MG/2 ML AMPUL.NEB IH SCH ×2 (17:47→21:12)
[2018-02-09] MEDS ORDERED: ALUMINUM HYDROXIDE PO PRN (19:56)
[2018-02-09] MEDS ORDERED: MAGNESIUM CARBONATE PO PRN (19:56)
[2018-02-09] MEDS ORDERED: ALGINIC ACID PO PRN (19:56)
[2018-02-09] MEDS ORDERED: MELATONIN 3 MG TAB PO PRN (19:56)
[2018-02-09] MEDS ORDERED: TROLAMINE SALICYLATE 85 GM CRTUBE TP PRN (19:56)
[2018-02-09] MEDS ORDERED: FAMOTIDINE 20 MG TAB PO PRN (19:56)
--- NOTE | 2018-02-09 19:58 | GHP ---
[f rep st] HISTORY AND PHYSICAL DATE OF ADMISSION: 02/09/2018 CHIEF COMPLAINT: Shortness of breath and dyspnea on exertion. HISTORY OF PRESENT ILLNESS: Ms. Garcia is an 82-year-old female with a history of severe scoliosis and COPD, who presents to the emergency department complaining of shortness of breath. She states her symptoms are chronic but began to worsen over the past 2 days. She denies fevers or cough. She has had no mucus production. She was hospitalized in August 2017 with similar symptoms, most of which were attributed to restrictive lung capacity due to her severe scoliosis. At that time, an echocardiogram showed a normal ejection fraction with no wall motion abnormalities. She had a negative D-dimer and a normal BNP. She also underwent exercise treadmill stress test which was negative for cardiac ischemia. She has since followed up with Dr. Vignesh Lux , pulmonology, and has been diagnosed with COPD based on previous chest CT which showed evidence of bronchiectasis and mucous plugging in February of 2017. She uses home DuoNeb 3 times daily. She is not on chronic steroids. She has had no chest pain or pressure. Her shortness of breath is worse with exertion. She denies pleuritic chest pain. In the emergency department, there was some concern for pneumonia. Blood cultures were drawn. She was started on Levaquin. Her oxygen saturations ranged from 88% to 94% on room air. Given her hypoxemia and symptoms, she is admitted to the hospital for further management. PAST MEDICAL AND SURGICAL HISTORY: 1. Coronary artery disease, history of AR 20 years ago. 2. Hypothyroidism. 3. Chronic lymphocytic leukemia. 4. History of cystocele and rectocele surgery in 2017. 5. COPD based on chest CT appearance February 2017. Recent FEV1 was 1 L. This improved to 1.14 L post bronchodilator. 6. Severe scoliosis. 7. Dysphagia. MEDICATIONS: Please see [facility] for completed outpatient medication list. ALLERGIES: Iodine. FAMILY HISTORY: Both parents are . SOCIAL HISTORY: The patient lives independently on her own. She has a neighbor who is also her caregiver and is present at the bedside. She has a 15- 20 pack-year tobacco history, though quit smoking 20 years ago. She is . She is originally from [facility]. REVIEW OF SYSTEMS: A 10-point review of systems is performed, is negative except as per HPI. OBJECTIVE: VITAL SIGNS: Temperature 36.4, blood pressure 151/93, heart rate 75 , respiratory rate 18. She is 88% on room air. GENERAL: Patient is awake, alert, oriented, in no acute distress. HEENT: Head is atraumatic, normocephalic. Pupils equal, round, react to light. Extraocular muscles intact. Oropharynx, mucous membranes are moist. NECK: Supple. There is no JVD. HEART: Regular rate and rhythm without murmur. LUNGS: Diminished breath sounds, worse on the right. There are no wheezes, rales, or rhonchi, though she has decreased air exchange. ABDOMEN: Soft, nondistended, nontender with normoactive bowel sounds. EXTREMITIES: Without cyanosis, clubbing, or edema. NEUROLOGIC: Grossly nonfocal. LABORATORY DATA: CBC reveals a white blood cell count of 11.3 with 49% neutrophils. INR 0.94. Lactate is normal at 1.1. Basic metabolic panel is remarkable for chloride of 94, CO2 of 32. Troponin is negative. BNP is negative. Procalcitonin is pending. DIAGNOSTIC STUDIES: EKG shows normal sinus rhythm with T-wave inversions in V1 and V2. Otherwise, no evidence of acute ischemic changes. Chest x-ray is personally reviewed and interpreted, shows severe scoliosis, similar to her previous x-ray. There was some question of an anterior retrosternal infiltrate, though this may represent scarring related to her severe thoracic lumbar scoliosis. ASSESSMENT AND PLAN: Ms. Garcia is an 82-year-old female with a history of recently diagnosed chronic obstructive pulmonary disease, coronary artery disease, and hypothyroidism, who presents to the emergency department with worsening dyspnea. 1. Acute hypoxemic respiratory failure. Her hypoxemia is mild, 88% on room air. She has had no fevers, cough, or wheezing to suggest acute pneumonia or chronic obstructive pulmonary disease exacerbation. Given her prior CT evidence of bronchiectasis, will continue her on scheduled DuoNebs 4 times daily and also add budesonide nebulizers. I do not think she warrants systemic steroids at this time. Will check a procalcitonin. My suspicion for bacterial pneumonia is low, though if this is elevated, would consider continuing Levaquin. For now, will defer further antibiotics. I am suspicious that her severe scoliosis is a significant factor in her dyspnea due to restricted lung capacity. She does use oxygen at night and may warrant oxygen use during the day as well. Her BNP is normal. There is no evidence of heart failure. Will send D-dimer. Also send a respiratory viral panel. 2. Dysphagia. This is in the setting of a 20-pound weight loss. Her neck x- ray in the emergency department shows possibly abnormal subglottic trachea. Will proceed with neck CT, as well as a barium swallow. A speech/swallow evaluation is requested. 3. Hypothyroidism. Will check TSH and continue her levothyroxine once her medication reconciliation is completed. 4. Chronic lymphocytic leukemia. Her white blood cell count is at baseline between 9000 and 11,000. 5. History of coronary artery disease status post myocardial infarction 20 years ago. Given her mild EKG changes with T-wave inversions in V1 and V2, will trend her troponin. I note she had a nonischemic exercise stress test in August 2017, and her symptoms do not seem consistent with an acute coronary syndrome. 6. Deep venous thrombosis prophylaxis. The patient is high risk. Will give Lovenox. 7. Code status. I did discuss code status with the patient. She wishes to be do not resuscitate. This will be honored. 8. Disposition. Patient admitted to inpatient status. I anticipate greater than 48 hours hospitalization for ongoing evaluation and management of her hypoxemia and dysphagia. /[id number]/MODL MTDD
[2018-02-09] MEDS ORDERED: LIDOCAINE 4%/MENTHOL 1% PATCH TD PRN ×2 (21:00)
[2018-02-09] MEDS: IPRATROPIUM/ALBUTEROL 3 ML DEYVIAL IH SCH (21:09)
[2018-02-09] MEDS: NYSTATIN SUSP 500000 UNIT/5 ML UDCUP PO SCH (21:22)
--- NOTE | 2018-02-09 21:38 | GCON ---
[f rep st] CONSULTATION ENT CONSULTATION DATE OF CONSULTATION: 02/09/2018 CHIEF COMPLAINT: Shortness of breath, dysphagia. HISTORY OF PRESENT ILLNESS: This is an 82-year-old female with COPD, likely secondary to a long hist ory of smoking. She presented to the emergency room with significant complaints of shortness of todd th. She feels the symptoms are chronic, but they have worsened over the last several days. Her symptoms of dysphagia have been going on for weeks to months. This was corroborated by her daugh viv, who was in the room with her. She feels like she cannot swallow unless she is standing up and f eels that these symptoms have gotten worse in the last several weeks as well. The patient states her dysphagia is equally bad with liquids and solids. She often feels like she has to wash foods down w ith liquids. She has had no recent illness and does not feel like she has significant mucus, sore throat, cough. She has been seen by multiple physicians recently and had a cardiac workup that was negative, per her . She has also followed up with Pulmonology with recent diagnosis of COPD. Today, she denies hemopt ysis, hematemesis, unexplained weight loss, sore throat, voice change, fevers. PAST MEDICAL HISTORY: 1. CAD. 2. Hypothyroidism. 3. CLL. 4. Cystocele/rectocele surgery. 5. COPD. 6. Scoliosis. 7. Dysphagia. MEDICATIONS: Reviewed. ALLERGIES: Iodine. FAMILY HISTORY: Noncontributory. SOCIAL HISTORY: Although the patient quit smoking almost 20 years ago, she has a 20 pack-year smokin g history. The patient lives independently. PHYSICAL EXAMINATION: VITAL SIGNS: I looked at vital signs, which were blood pressure 151/93, heart rate 75, respiratory rate 16, O2 saturation 88% on room air, afebrile. GENERAL: Alert, interactive , no acute distress. Somewhat anxious. HEAD AND FACE: Normocephalic, atraumatic, with generally sy mmetric facial features. EARS: Pinnae and canals unremarkable. No otorrhea. Hearing intact. EYES : EOMI. NOSE: Anterior rhinoscopy unremarkable. Nasal cannula in place, removed for exam. Septum generally straight. ORAL CAVITY: Clear, without visible oropharyngeal or oral cavity lesions. Age -appropriate dentition. Symmetric rise at the soft palate. NECK: Supple, without palpable adenopat hy. Prominent jugular bulbs. No palpable thyroid lesions. PROCEDURE: Flexible nasopharyngolaryngoscopy was performed after Afrin was sprayed into bilateral na gunner cavities. Patient had some difficulty tolerating this as she felt she was choking and not able t o breathe appropriately. Nonetheless, she tolerated this procedure fairly well. There was good bila teral vocal fold movement. Wide open glottis. The subglottis was seen, but given her intolerance an d her anatomy, subglottic structures were not seen in detail. No pooling of secretions. Base of ton damian was without mass or erythema. The remainder of the laryngeal structures appeared normal. RADIOLOGY: Patient had AP and lateral soft tissue neck x-rays performed. I reviewed these images an d the radiology read and agree with Dr. Townsend that there appears to be some narrowing of subglo ttic structures, though these are not seen in great detail with these images. ASSESSMENT: 82-year-old female with shortness of breath and dysphagia. Without an acute cause, I do not expect that her mild narrowing of the subglottis is a significant contributory factor in her ricardo rtness of breath. Given her history, this seems more like a chronic condition. Although it may be c hronic, it could certainly be contributory to her difficulty breathing over the usp. As such, she would be appropriate for CT of the neck. This could certainly be done without contrast, though c ontrast may shed light on any aberrant vascular structures and soft tissue tumors as well. As such, I would lean toward recommending a CT neck with contrast. Her laryngoscopy did not show any remarkab le structures, certainly none that would cause difficulty breathing. Per her liquid and solid dysphagia and her need to stand up while swallowing, she would be a good can didate for Gastrografin swallow study. I believe this was already ordered for her. It will be instr uctive in helping diagnose her dysphagia. She may end up being a good candidate for upper endoscopy, depending on the findings of the swallow study. At the very least, I would recommend she see Speech Pathology for swallow therapy. Will review CT scans when they become available. Please call me if you have any further questions. My cell phone number is [phone]. /[id number]/MODL
[2018-02-10] MEDS: NYSTATIN SUSP 500000 UNIT/5 ML UDCUP PO SCH ×4 (04:40→22:40)
[2018-02-10] MEDS: LEVOTHYROXINE 88 MCG TAB PO SCH (04:40)
[2018-02-10 05:24] LABS: PLATELET COUNT 218 10^3/uL (150-400)
[2018-02-10] MEDS: IPRATROPIUM/ALBUTEROL 3 ML DEYVIAL IH SCH ×4 (06:09→20:40)
[2018-02-10] MEDS ORDERED: PATCH REMOVAL 1 EA PATCH TD PRN (09:00)
[2018-02-10] MEDS ORDERED: ENOXAPARIN 40 MG/0.4 ML SYR SC SCH (09:00)
[2018-02-10] MEDS ORDERED: FAMOTIDINE 20 MG/NACL 50 ML IV ONE (09:12)
[2018-02-10] MEDS ORDERED: methylPREDNISolone SOD SUCC 125 MG/2 ML VIAL IVP ONE ×2 (09:12→12:45)
[2018-02-10] MEDS: BUDESONIDE 0.5 MG/2 ML AMPUL.NEB IH SCH ×2 (10:56→20:38)
--- NOTE | 2018-02-10 11:37 | ASMTCASEMG ---
Living Arrangements What is your living Answers: Alone arrangement? Who do you live with? Type Of Residence What kind of residence do Answers: House you live in? Discharge Plan Comments Coordination Status Comments Notes: Pt is a 82 y/o female admitted for pneumonia. Pt was recently discharged from [facility] services. Pt will most likely d/c independent when medically stable. No therapies ordered at this time. CM available for changes. Plan: Independent Date Signed: 02/10/2018 11:37 AM Electronically Signed By:JESÚS Roland
[2018-02-10] MEDS: SERTRALINE HCL 50 MG TAB PO SCH (11:47)
--- NOTE | 2018-02-10 13:10 | PDMN ---
Medical Necessity Medical necessity: Pt meets IP criteria per MD; est los >2 mn for eval/tx of acute hypoxemic respiratory failure r/t possible pneumonia vs COPD exacerbation , as well as dysphagia; admit for further workup/monitoring, respiratory supportive care & Speech Therapy consult; hx CAD, chronic lymphocytic leukemia, COPD, severe scoliosis & dysphagia; per H&P & order 02/09/18
[2018-02-10] MEDS ORDERED: IOPAMIDOL (ISOVUE-300) 100 ML BTL ONE (13:43)
[2018-02-10] MEDS: ENOXAPARIN 30 MG/0.3 ML SYR SC SCH (16:13)
[2018-02-11] MEDS: IPRATROPIUM/ALBUTEROL 3 ML DEYVIAL IH SCH ×2 (05:19→10:09)
[2018-02-11] MEDS: NYSTATIN SUSP 500000 UNIT/5 ML UDCUP PO SCH ×2 (06:21→13:16)
[2018-02-11] MEDS: LEVOTHYROXINE 88 MCG TAB PO SCH (06:32)
[2018-02-11 07:48] VITALS: BP 138/69
[2018-02-11] MEDS: BUDESONIDE 0.5 MG/2 ML AMPUL.NEB IH SCH (10:09)
[2018-02-11] MEDS: SERTRALINE HCL 50 MG TAB PO SCH (10:32)
--- NOTE | 2018-02-11 11:29 | PDHOMEO2F ---
Home Oxygen Face to Face Home Orders: I certify that a physician or a nurse practitioner or physician's pediatric assistant has had a [id number] encounter with this patient on the date of this order due to the diagnosis listed, which relates to the primary reason the patient requires home oxygen. Alternative treatments have been tried, or considered, and deemed ineffective. It is anticipated that supplemental oxygen will result in improvement with treatment. Home oxygen qualifying diagnosis: COPD, severe scoliosis SpO2 on room air (%): 85 Frequency of home oxygen needed: continuous Home oxygen liters per minute: 2 Home oxygen delivery device: nasal cannula Concentrator: Yes E-tanks for mobility and back up: Yes If ordering portable O2, is the patient mobile in the home?: Yes I certify that, based on these findings, the home oxygen is medically necessary for this patient for the following length of time. Length of time home oxygen needed: 99 years
[2018-02-11] MEDS ORDERED: LEVOTHYROXINE 88 MCG TAB PO SCH (11:30)
--- NOTE | 2018-02-11 11:30 | PDIAF ---
- Diagnosis Diagnosis: COPD, severe scoliosis, hypoxemia Code Status: Do Not Resuscitate - Medication Management Discharge Medications: Medications to Continue on Transfer Albuterol [Proventil Inhaler HFA (*)] 1 - 2 puffs IH QID PRN 02/09/18 [Last Taken Unknown] Ascorbic Acid [Vitamin C 500 mg (*)] 1,000 mg PO DAILY@12 02/09/18 [Last Taken 02/09/18] Calcium Carb W/Vit D [Calcium Carb W/Vit D 500/200 (*)] 500 mg PO BID 02/09/18 [ Last Taken Unknown] Cholecalciferol Vit D3 [Vitamin D3 (*)] 2,000 units PO DAILY@12 02/09/18 [Last Taken 02/09/18] Famotidine [Pepcid 20 MG (*)] 10 mg PO DAILY PRN 02/09/18 [Last Taken Unknown] Herbals/Supplements -Info Only 1 ea PO DAILY 02/09/18 [Last Taken Unknown] Ibuprofen [Motrin (*)] 200 - 400 mg PO TID PRN 02/09/18 [Last Taken Unknown] Ipratropium/Albuterol [Duoneb (*)] 3 ml IH Q6H PRN 02/09/18 [Last Taken Unknown] Levothyroxine [Synthroid 88 mcg (*)] 88 mcg PO DAILY06 02/09/18 [Last Taken ] Lidocaine [Lidoderm] 1 each TP Q12H PRN 02/09/18 [Last Taken Unknown] MAG CARB/AL HYDROX/ALGINIC AC [Gaviscon Liquid] 2 tsp PO TIDMEAL PRN 02/09/18 [ Last Taken Unknown] Melatonin [Melatonin 3 MG (*)] 3 mg PO HS PRN 02/09/18 [Last Taken 02/08/18] Multivitamins [Multivitamin (*)] 1 each PO DAILY 02/09/18 [Last Taken Unknown] Nystatin Susp [Mycostatin Oral Liquid] 5 ml PO QID 02/09/18 [Last Taken Unknown] Phenylephrine HCl/[place] Butter [Preparation H Suppository] 1 each RC BID PRN [Last Taken Unknown] Sertraline HCl [Zoloft 50mg (*)] 50 mg PO DAILY 02/09/18 [Last Taken 02/09/18] Trolamine Salicylate [Aspercreme] 1 jenna TP Q12H PRN 02/09/18 [Last Taken Unknown ] Budesonide [Budesonide 0.5MG/2Ml Neb (*)] 0.5 mg IH BID #60 ampul.neb 02/11/18 [ Last Taken Unknown] Patch Removal 1 ea TD DAILY PRN patch 02/11/18 [Last Taken Unknown] Discharge Medications: Refer to the Discharge Home Medication list for PRN reason. - Orders Services needed: Home Care, Registered Nurse Home Care Face to Face: I certify that this patient was under my care and that I had the required [id number] encounter meeting the encounter requirements on the discharge day. My findings support the fact that the patient is homebound as defined in Home Care Face to Face Continued: CMS Chapter 7 Medicare Benefits Manual 30.1.1 , The condition of the patient is such that there exists a normal inability to leave home and consequently, leaving home would require a considerable and taxing effort. Isolation Type: None Diet Recommendation: no restrictions on diet Diet Texture: Regular Texture Diet, Thin Liquids, Meds Whole in Puree, Meds Crushed in Puree - Follow Up Care Current Providers and Referrals: NONE *PRIMARY CARE P,. [Primary Care Provider] - As per Instructions Vignesh Lux MD [Medical Doctor] -
[2018-02-11] MEDS: ENOXAPARIN 30 MG/0.3 ML SYR SC SCH (11:32)
--- NOTE | 2018-02-11 12:12 | ASMTLACE ---
LACE Length of stay for Answers: 2 days current admission Acuity / Level of Answers: Yes Care: Did the patient have an inpatient admission? Comorbidities - select Answers: Any tumor (including all that apply lymphoma or leukemia) Chronic pulmonary disease Coronary Artery Disease Previous myocardial infarction Other Notes: GERD # of Emergency department Answers: 1-2 visits in the last 6 months Social determinants Answers: Mental health diagnosis (anxiety, depression, pers onality disorders, etc.) Score: 17 Date Signed: 02/11/2018 12:11 PM Electronically Signed By:Cass Torres RN
--- NOTE | 2018-02-11 12:15 | ASMTCMCOM ---
CM Note CM Note Notes: Spoke w/pt and caregiver/neighbor Aliyah. Pt will dc home with JAY, ordered O2 for daytime use but does not think pt will use it. DC Plan: Home Care/ [facility] (RN) + home O2 Date Signed: 02/11/2018 12:14 PM Electronically Signed By:Cass Torres RN
--- NOTE | 2018-02-11 15:56 | GDS ---
[f rep st] DISCHARGE SUMMARY DISCHARGE DIAGNOSES: 1. [id number] hypoxemic respiratory failure secondary to chronic obstructive pulmonary disease and severe scoliosis. 2. Dysphagia. 3. Hypothyroidism. 4. Chronic lymphocytic leukemia. CONSULTANTS: None. IMAGING STUDIES/PROCEDURES: 1. Chest x-ray, February 09, 2018, shows severe thoracic-lumbar scoliosis with possibly chronic scarrin g in the anterior retrosternal region. 2. Neck CT with contrast showed a patent subglottic airway with no subglottic stenosis, mass, or abs cess. 3. Barium esophagram, February 10, 2018, showed a grossly normal esophagus with mild tertiary contracti ons. HISTORY: For details, please see the history and physical dated February 09, 2018. In brief, Ms Garcia is an 82-year-old female with a history of severe scoliosis and recently diagnosed COPD, who present s to the emergency department with shortness of breath. HOSPITAL COURSE: The patient was admitted to the medical/surgical unit. She was saturating 88% to 9 1% in room air on arrival. She has been diagnosed with COPD by Dr. Vignesh Lux in the outpatient [facility], based on bronchiectasis findings on a CT scan from February 2017; however, she had no active wheezin g, cough, or sputum production here. She was treated with DuoNeb, which she was already using at [facility]. I added budesonide inhaled nebulizers twice daily. She had an extensive workup during a recent h ospitalization with similar symptoms of shortness of breath, and at that time had no evidence of infe ction, a normal BNP, and a normal exercise treadmill stress test. During this hospitalization, her D -dimer is negative. She remains afebrile with a normal lactate. Procalcitonin is negative. She had no symptoms of infection. Once again, I believe the most likely etiology of her shortness of breath is related to her severe scoliosis as evidenced by her chest x-ray. I think this is causing some re stricted lung capacity. 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 She also complained of dysphagia and there was some question about subglottic stenosis on her x-rays, so she underwent neck CT which was normal, and a barium swallow, which was also relatively normal. She was evaluated by speech therapy and they did not note any swallow issues. The patient is doing v robert well on the day of discharge and wishes discharge home. DISPOSITION: Patient is discharged home in stable condition with plans for home oxygen continuously at 2 L/minute, as well as home health RN. DISCHARGE MEDICATIONS: Please see [employer] for completed outpatient medication list. New medications on discharge include budesonide inhaled solution 0.5 mg b.i.d. she will continue all of her outpatient medications as previously prescribed in addition to wearing home oxygen continuousl y. FOLLOWUP: Vignesh Lux MD, pulmonology. /[id number]/MODL
== END 2018-02-11 15:09 | disposition home or self-care (01) | DRG 189 ==
LOC: F3E 16:05
PROVIDERS: ADMIT Hospitalist; ATTEND Hospitalist
PROC: 0CJS8ZZ Inspection of Larynx, Via Natural or Artificial Opening Endoscopic (ICD-10-PCS; principal; 2018-02-09)
DX: J96.21 Acute and chronic respiratory failure with hypoxia (principal); M41.9 Scoliosis, unspecified; J44.9 Chronic obstructive pulmonary disease, unspecified; R13.10 Dysphagia, unspecified; I25.10 Atherosclerotic heart disease of native coronary artery without angina pectoris; E03.9 Hypothyroidism, unspecified; C91.10 Chronic lymphocytic leukemia of B-cell type not having achieved remission; I25.2 Old myocardial infarction; Z87.891 Personal history of nicotine dependence; Z66 Do not resuscitate
CPT/HCPCS: 92526-GN; 92610-GN; 96365; G8996-GN-CI; G8997-GN-CH; G8998-GN-CH; J1200; J1650; J1956; J2930; J7626; Q9967

== ENCOUNTER 2018-04-02 15:43 | Emergency (ER) | payer OTHER ==
--- NOTE | 2018-04-02 16:08 | CPEKG ---
Heart Rate: 72 RR Interval: 833 P-R Interval: 168 QRSD Interval: 90 QT Interval: 376 QTC Interval: 412 P [place]: 81 QRS [place]: -55 T Wave [place]: 71 EKG Severity - ABNORMAL ECG - EKG Impression: SINUS RHYTHM EKG Impression: LEFT ANTERIOR FASCICULAR BLOCK EKG Impression: PROBABLE LEFT VENTRICULAR HYPERTROPHY Electronically Signed By: Keyla Dickinson 02-Apr-2018 18:38:17
[2018-04-02 16:13] LABS: PLATELET COUNT 286 10^3/uL (150-400)
--- NOTE | 2018-04-02 16:41 | EDPHY ---
H & P Stated Complaint: pedal edema, SOB Time Seen by Provider: 04/02/18 15:56 HPI/ROS: CHIEF COMPLAINT: Shortness of breath, leg swelling HISTORY OF PRESENT ILLNESS: 82-year-old female with oxygen-dependent COPD and severe scoliosis presents with shortness of breath and leg swelling. This afternoon, she felt short of breath, despite using her usual oxygen of 3 L by nasal cannula. Associated with bilateral ft and ankle swelling today. She also feels bloating in her abdomen, but no abdominal pain. No other associated symptoms. She denies shortness of breath now. REVIEW OF SYSTEMS: complete 10 point ROS negative except at noted in the HPI Source: Patient, Family - Personal History Current Tetanus/Diphtheria Vaccine: Yes Current Tetanus Diphtheria and Acellular Pertussis (TDAP): Yes - Medical/Surgical History PMH: Oxygen-dependent COPD Hx Asthma: No Hx Chronic Respiratory Disease: Yes Hx Diabetes: No Hx Cardiac Disease: Yes Hx Renal Disease: No Hx Cirrhosis: No Hx Alcoholism: No Hx HIV/AIDS: No Hx Splenectomy or Spleen Trauma: No Other PMH: [place] 15 years ago, hypothyroid, osteoporosis, GERD, depression, scoliosis, - Social History Smoking Status: Former smoker Alcohol Use: Sober - Physical Exam Exam: General Appearance: Alert, pleasant, oxygen saturation 100% on 3 L by nasal cannula Eyes: Pupils equal and round, no conjunctival pallor or injection ENT, Mouth: Mucous membranes moist Neck: Normal inspection Respiratory: Normal respiratory rate, Lungs are clear to auscultation Cardiovascular: Regular rate and rhythm Gastrointestinal: Abdomen is soft and nontender Neurological: A&O, nonfocal, normal gait Skin: Warm and dry Extremities: Trace bilateral pedal edema, no calf tenderness Psychiatric: Mood and affect normal Constitutional: Initial Vital Signs Temperature (C) 36.7 C 04/02/18 15:51 Heart Rate 67 04/02/18 15:51 Respiratory Rate 18 04/02/18 15:51 Blood Pressure 129/72 H 04/02/18 15:51 O2 Sat (%) 88 L 04/02/18 15:51 O2 Delivery Mode Room Air O2 (L/minute) 3 Allergies/Adverse Reactions: IODINE DYE Allergy (Intermediate, Uncoded 04/02/18 15:50) BLISTERS Home Medications: Medication Instructions Recorded Levothyroxine [Synthroid 88 mcg 88 mcg PO DAILY06 02/09/18 (*)] Medical Decision Making - Diagnostics EKG Interpretation: EKG interpreted by me reveals normal sinus rhythm, rate 72, LVH. Imaging Results: Imaging Impressions Chest X-Ray 04/02/18 15:57 Impression: Stable chest. Retrosternal atelectasis/infiltrate appears unchanged. No new focal infiltrate or pleural effusion.. ED Course/Re-evaluation: This patient presents with shortness of breath and pedal edema. Old medical record reviewed. No prior history of congestive heart failure. EKG reveals no evidence of ischemia or dysrhythmia. Chest x-ray is unremarkable, no evidence of pneumonia or cardiomegaly. Laboratory results are unremarkable, including BNP and D-dimer. There is no evidence of congestive heart failure or pulmonary embolism. Oxygen saturation has remained adequate on her usual oxygen. She will wear compression stockings for the pedal edema and keep her legs elevated whenever possible. Differential Diagnosis: Differential diagnosis includes though it is not limited to CHF, pneumonia, pneumothorax, pulmonary embolism, aortic dissection, pericarditis, acute coronary syndrome. - Data Points Laboratory Results: Laboratory Results 04/02/18 16:00 04/02/18 16:00 04/02/18 04/02/18 04/02/18 16:00 16:00 16:00 WBC 10.38 10^3/uL H 10^3/uL (3.80-9.50) RBC 4.19 10^6/uL 10^6/uL (4.18-5.33) Hgb 13.6 g/dL g/dL (12.6-16.3) Hct 40.5 % % (38.0-47.0) MCV 96.7 fL fL (81.5-99.8) MCH 32.5 pg pg (27.9-34.1) MCHC 33.6 g/dL g/dL (32.4-36.7) RDW 14.5 % % (11.5-15.2) Plt Count 286 10^3/uL 10^3/uL (150-400) MPV 9.4 fL fL (8.7-11.7) Neut % (Auto) 53.8 % % (39.3-74.2) Lymph % (Auto) 39.9 % % (15.0-45.0) [place] % (Auto) 4.7 % % (4.5-13.0) Eos % (Auto) 0.7 % % (0.6-7.6) Baso % (Auto) 0.7 % % (0.3-1.7) Nucleat RBC Rel Count 0.0 % % (0.0-0.2) Absolute Neuts (auto) 5.58 10^3/uL 10^3/uL (1.70-6.50) Absolute Lymphs (auto) 4.14 10^3/uL H 10^3/uL (1.00-3.00) Absolute Monos (auto) 0.49 10^3/uL 10^3/uL (0.30-0.80) Absolute Eos (auto) 0.07 10^3/uL 10^3/uL (0.03-0.40) Absolute Basos (auto) 0.07 10^3/uL 10^3/uL (0.02-0.10) Absolute Nucleated RBC 0.00 10^3/uL 10^3/uL (0-0.01) Immature Gran % 0.2 % % (0.0-1.1) Immature Gran # 0.02 10^3/uL 10^3/uL (0.00-0.10) RBC/WBC/PLT Morphology TNP Platelet Estimate ADEQUATE (ADEQ) D-Dimer 0.40 ug/mLFEU ug/mLFEU (0.00-0.50) Sodium 139 mEq/L mEq/L (135-145) Potassium 4.3 mEq/L mEq/L (3.3-5.0) Chloride 97 mEq/L mEq/L (97-110) Carbon Dioxide 32 mEq/l H mEq/l (22-31) Anion Gap 10 mEq/L mEq/L (8-16) BUN 24 mg/dL H mg/dL (7-23) Creatinine 0.6 mg/dL mg/dL (0.6-1.0) Estimated GFR > 60 Glucose 89 mg/dL mg/dL (70-100) Calcium 9.1 mg/dL mg/dL (8.5-10.4) NT-Pro-B Natriuret Pep 170 pg/mL pg/mL (0-450) Departure - Departure Disposition: Home, Routine, Self-Care Clinical Impression: Pedal edema Dyspnea Qualifiers: Dyspnea type: shortness of breath Qualified Code(s): R06.02 - Shortness of breath Condition: Good Instructions: Leg Edema (ED), Dyspnea (ED) Additional Instructions: Wear compression stockings. Keep your legs elevated whenever possible. Return for worsening symptoms or any concerns. Referrals: Jasmyn Toledo MD [Primary Care Provider] - As per Instructions
[2018-04-02 17:04] VITALS: BP 127/79
== END 2018-04-02 17:04 | disposition home or self-care (01) ==
DX: R06.02 Shortness of breath (principal); R60.0 Localized edema; I25.2 Old myocardial infarction; Z87.891 Personal history of nicotine dependence
CPT/HCPCS: 84484-PO

== ENCOUNTER 2018-05-03 16:12 | Inpatient (IN) | payer OTHER ==
--- NOTE | 2018-05-03 16:30 | EDPHY ---
H & P Stated Complaint: Onset yesterday 1200, R leg weak, R facial droop Time Seen by Provider: 05/03/18 16:28 HPI/ROS: CHIEF COMPLAINT: [ ] HISTORY OF PRESENT ILLNESS: [Need 4: Location, Duration, Severity, Quality, Context, Timing Modifying Factors, Associated S&S] REVIEW OF SYSTEMS: A comprehensive 10 point review of systems is otherwise negative aside from elements mentioned in the history of present illness. Source: Patient Exam Limitations: No limitations - Personal History Current Tetanus/Diphtheria Vaccine: Yes - Medical/Surgical History Hx Asthma: No Hx Chronic Respiratory Disease: Yes Hx Diabetes: No Hx Cardiac Disease: Yes Hx Renal Disease: No Hx Cirrhosis: No Hx Alcoholism: No Hx HIV/AIDS: No Hx Splenectomy or Spleen Trauma: No Other PMH: [place] 15 years ago, hypothyroid, osteoporosis, GERD, depression, scoliosis, - Social History Smoking Status: Former smoker - Physical Exam Exam: General Appearance: [Alert, no distress] Eyes: [Pupils equal and round no pallor or injection] ENT, Mouth: [Mucous membranes moist] Respiratory: [There are no retractions, lungs are clear to auscultation] Cardiovascular: [Regular rate and rhythm] Gastrointestinal: [Abdomen is soft and nontender, no masses, bowel sounds normal] Neurological: [A&O, normal motor function, normal sensory exam, normal cranial nerves] Skin: [Warm and dry, no rashes] Musculoskeletal: [Neck is supple nontender] Extremities: [symmetrical, full range of motion] Psychiatric: [Patient is oriented X 3, there is no agitation] Constitutional: Initial Vital Signs Temperature (C) 36.5 C 05/03/18 16:19 Heart Rate 71 05/03/18 16:19 Respiratory Rate 16 05/03/18 16:19 Blood Pressure 135/88 H 05/03/18 16:19 O2 Delivery Mode Room Air Allergies/Adverse Reactions: Iodine and Iodide Containing Produc Allergy (Verified 05/03/18 16:25) IODINE DYE Allergy (Intermediate, Uncoded 04/02/18 15:50) BLISTERS Home Medications: Medication Instructions Recorded Levothyroxine [Synthroid 88 mcg 88 mcg PO DAILY06 02/09/18 (*)] Departure - Departure Condition: Good Referrals: Jasmyn Toledo MD [Primary Care Provider] - As per Instructions
--- NOTE | 2018-05-03 16:51 | EDPHY ---
H & P Stated Complaint: Onset yesterday 1200, R leg weak, R facial droop Time Seen by Provider: 05/03/18 16:28 HPI/ROS: CHIEF COMPLAINT: Expressive aphasia, right-sided weakness, symptoms improving HISTORY OF PRESENT ILLNESS: The patient is brought to the emergency department by her caregiver. She reportedly developed symptoms of an expressive aphasia, right facial weakness, right arm weakness and right leg weakness that began yesterday around noon. The patient has had waxing and weaning symptoms since that time. They have significantly improved over the past several hours. The patient feels subjectively weak at home right leg. The patient denies any history of fall or trauma. She is not anticoagulated. She has no prior history of stroke or TIA. The patient does have a history of myocardial infarction. REVIEW OF SYSTEMS: A comprehensive 10 point review of systems is otherwise negative aside from elements mentioned in the history of present illness. Source: Patient Exam Limitations: No limitations - Personal History Current Tetanus/Diphtheria Vaccine: Yes - Medical/Surgical History Hx Asthma: No Hx Chronic Respiratory Disease: Yes Hx Diabetes: No Hx Cardiac Disease: Yes Hx Renal Disease: No Hx Cirrhosis: No Hx Alcoholism: No Hx HIV/AIDS: No Hx Splenectomy or Spleen Trauma: No Other PMH: [place] 15 years ago, hypothyroid, osteoporosis, GERD, depression, scoliosis, - Social History Smoking Status: Former smoker - Physical Exam Exam: General Appearance: Alert, no distress Eyes: Pupils equal and round no pallor or injection ENT, Mouth: Mucous membranes moist Respiratory: There are no retractions, lungs are clear to auscultation Cardiovascular: Regular rate and rhythm Gastrointestinal: Abdomen is soft and nontender, no masses, bowel sounds normal Neurological: 5/5 strength all 4 extremities, no pronator drift, cranial nerves 2-12 grossly intact, slight dysmetria with finger to nose bilaterally Skin: Warm and dry, no rashes Musculoskeletal: Neck is supple nontender Extremities: symmetrical, full range of motion Psychiatric: Patient is oriented X 3, there is no agitation Constitutional: Initial Vital Signs Temperature (C) 36.5 C 05/03/18 16:19 Heart Rate 71 05/03/18 16:19 Respiratory Rate 16 05/03/18 16:19 Blood Pressure 135/88 H 05/03/18 16:19 O2 Delivery Mode Room Air Allergies/Adverse Reactions: Iodine and Iodide Containing Produc Allergy (Verified 05/03/18 16:25) IODINE DYE Allergy (Intermediate, Uncoded 04/02/18 15:50) BLISTERS Home Medications: Medication Instructions Recorded Levothyroxine [Synthroid 88 mcg 88 mcg PO DAILY06 02/09/18 (*)] Medical Decision Making - Diagnostics EKG Interpretation: EKG: Complete interpretation has been separately recorded in the [employer] archive. Summary impression: Sinus rhythm, rate 72, LVH Imaging Results: Imaging Impressions Head CT 05/03/18 16:51 Impression: 1. Mild to moderate age-related atrophy. 2. No hemorrhage, mass effect, or definite acute peripheral infarct. 3. Minimal nonspecific hypodensities in the white matter of bilateral cerebral hemispheres. Differential diagnosis includes microvascular ischemic disease, post-infectious/post-inflammatory sequela, atypical demyelinating disease, or migraine-related sequela. Small white matter lacunar infarcts may also have this appearance. Subsequent CT angiogram procedure was also ordered. Head CTA 05/03/18 16:[address]: [address] angiogram of the neck with minimal plaque formation at the carotid bulb level. 2. Normal CT angiogram of the [place], as detailed above. 3. Moderate degenerative disk disease mid cervical spine. Note: All calculations were performed using NASCET criteria. Findings discussed with Rick Zapata M.D. at 19:01 hour, 05/03/2018. Neck CTA 05/03/18 16:51 Impression: [address] angiogram of the neck with minimal plaque formation at the carotid bulb level. 2. Normal CT angiogram of the [place], as detailed above. 3. Moderate degenerative disk disease mid cervical spine. Note: All calculations were performed using NASCET criteria. Findings discussed with Rick Zapata M.D. at 19:01 hour, 05/03/2018. ED Course/Re-evaluation: The patient presents emergency department with reported right-sided weakness and expressive aphasia stuttering in intensity for the past 28 hr. She arrives with a NIH stroke scale of 1 (mild finger to nose abnormality noted on cerebellar testing). The patient is not a candidate for thrombolytics therapy based upon her current NIH stroke scale, improving symptoms and duration of symptoms. A normal creatinine was verified. A noncontrast CT scan of the head was ordered, CT angiogram the head and neck was also ordered. EKG demonstrates a sinus rhythm. The patient will be admitted to the hospital for possible TIA vs. small ischemic CVA. Consultation was made with the hospitalist service at 6:[address] brain without contrast in angiographic studies are reviewed by myself and discussed with the radiologist Dr. Corky Church. No acute abnormalities noted. Patient was given 325 mg of aspirin in the emergency department. Differential Diagnosis: Differential diagnosis considered includes stroke, TIA, intracranial hemorrhage , migraine variant, dehydration, metabolic abnormality - Data Points Laboratory Results: Laboratory Results 05/03/18 16:40 05/03/18 05/03/18 16:48 16:40 WBC 9.97 10^3/uL H 10^3/uL (3.80-9.50) RBC 4.41 10^6/uL 10^6/uL (4.18-5.33) Hgb 14.3 g/dL g/dL (12.6-16.3) POC Hgb 15.6 gm/dL gm/dL (12.6-16.3) Hct 42.8 % % (38.0-47.0) POC Hct 46 % % (38-47) MCV 97.1 fL fL (81.5-99.8) MCH 32.4 pg pg (27.9-34.1) MCHC 33.4 g/dL g/dL (32.4-36.7) RDW 14.2 % % (11.5-15.2) Plt Count 289 10^3/uL 10^3/uL (150-400) MPV 9.3 fL fL (8.7-11.7) Neut % (Auto) Not Reported Lymph % (Auto) Not Reported [place] % (Auto) Not Reported Eos % (Auto) Not Reported Baso % (Auto) Not Reported Nucleat RBC Rel Count Not Reported Absolute Neuts (auto) Not Reported Absolute Lymphs (auto) Not Reported Absolute Monos (auto) Not Reported Absolute Eos (auto) Not Reported Absolute Basos (auto) Not Reported Absolute Nucleated RBC Not Reported Immature Gran % Not Reported Seg Neutrophils % 56.0 % % Band Neutrophils % 0 % % Lymphocytes % 39.0 % % Monocytes % 4.0 % % Eosinophils % 0 % % Basophils % 1.0 % % Metamyelocytes % 0 % % Myelocytes % 0 % % Promyelocytes % 0 % % Blast Cells % 0 % % Immature Gran # Not Reported Absolute Seg Neuts 5.58 10^/uL 10^/uL (1.70-6.50) Absolute Band Neuts 0.00 10^3/uL 10^3/uL (0.00-0.70) Absolute Lymphocytes 3.89 10^3/uL H 10^3/uL (1.00-3.00) Absolute Monocytes 0.40 10^3/uL 10^3/uL (0.30-0.80) Absolute Eosinophils 0.00 10^3/uL L 10^3/uL (0.03-0.40) Absolute Basophils 0.10 10^3/uL 10^3/uL (0.02-0.10) Absolute Metamyelocyte 0.00 10^3/mL 10^3/mL (0.00-0.00) Absolute Myelocytes 0.00 10^3/mL 10^3/mL (0.00-0.00) Absolute Promyelocytes 0.00 10^3/uL 10^3/uL (0.00-0.00) Absolute Plasma Cells 0.00 10^3/uL 10^3/uL (0.00-0.00) Nucleated RBCs 0 /100 WBC /100 WBC (0-0) RBC/WBC/PLT Morphology NORMAL (NORMAL) Absolute Blast Cells 0.00 10^3/uL 10^3/uL (0.00-0.00) Plasma Cells % 0 % % Platelet Estimate ADEQUATE (ADEQ) POC Sodium 138 mEq/L mEq/L (135-145) POC Potassium 4.3 mEq/L mEq/L (3.3-5.0) POC Chloride 96 mEq/L L mEq/L (97-110) POC BUN 21 mg/dL mg/dL (7-23) POC Creatinine 0.7 mg/dL mg/dL (0.6-1.0) POC Glucose 98 mg/dL mg/dL (70-100) Medications Given: Discontinued Medications Diphenhydramine HCl (Benadryl Injection) 25 mg IVP EDNOW ONE Stop: 05/03/18 17:05 Last Admin: 05/03/18 17:13 Dose: 25 mg Methylprednisolone Sodium Succinate (Solu-Medrol) 125 mg IVP EDNOW ONE Stop: 05/03/18 17:05 Last Admin: 05/03/18 17:13 Dose: 125 mg Point of Care Test Results: Chemistry 05/03/18 16:48 POC Sodium 138 mEq/L mEq/L (135-145) POC Potassium 4.3 mEq/L mEq/L (3.3-5.0) POC Chloride 96 mEq/L L mEq/L (97-110) POC BUN 21 mg/dL mg/dL (7-23) POC Creatinine 0.7 mg/dL mg/dL (0.6-1.0) POC Glucose 98 mg/dL mg/dL (70-100) ISTAT H&H 05/03/18 16:48 POC Hgb 15.6 gm/dL gm/dL (12.6-16.3) POC Hct 46 % % (38-47) Departure - Departure Disposition: [facility] Inpatient Acute Clinical Impression: Transient cerebral ischemia Condition: Good
[2018-05-03 16:54] LABS: PLATELET COUNT 289 10^3/uL (150-400)
[2018-05-03] MEDS ORDERED: methylPREDNISolone SOD SUCC 125 MG/2 ML VIAL IVP ONE (17:04)
--- NOTE | 2018-05-03 17:38 | CPEKG ---
Heart Rate: 72 RR Interval: 833 P-R Interval: 176 QRSD Interval: 96 QT Interval: 380 QTC Interval: 416 P [place]: 78 QRS [place]: -52 T Wave [place]: 65 EKG Severity - ABNORMAL ECG - EKG Impression: SINUS RHYTHM EKG Impression: PROBABLE LEFT ATRIAL ABNORMALITY EKG Impression: LEFT ANTERIOR FASCICULAR BLOCK EKG Impression: LEFT VENTRICULAR HYPERTROPHY EKG Impression: ANTERIOR Q WAVES, POSSIBLY DUE TO LVH Electronically Signed By: Rick Zapata 03-May-2018 18:25:55
[2018-05-03] MEDS ORDERED: IOPAMIDOL (ISOVUE 370) 100 ML BTL IV ONE (18:00)
[2018-05-03] MEDS ORDERED: ASPIRIN 325 MG TAB PO ONE (19:02)
[2018-05-03] MEDS ORDERED: ASPIRIN 81 MG CHEWABLE TAB ONE (19:25)
[2018-05-03] MEDS ORDERED: oxyCODONE IR 5 MG TAB PO PRN (19:40)
[2018-05-03] MEDS ORDERED: ONDANSETRON DISINTEGRATING 4 MG TAB PO PRN (19:40)
[2018-05-03] MEDS ORDERED: ONDANSETRON 4 MG/2 ML VIAL IVP PRN (19:40)
[2018-05-03] MEDS ORDERED: ACETAMINOPHEN 325 MG TAB PO PRN (19:40)
[2018-05-03] MEDS ORDERED: ALBUTEROL 3 ML DEYVIAL IH PRN (20:26)
--- NOTE | 2018-05-03 20:55 | GHP ---
[f rep st] HISTORY AND PHYSICAL DATE OF ADMISSION: 05/03/2018 CHIEF COMPLAINT: Confusion. HISTORY OF PRESENT ILLNESS: This is an 82-year-old female who has a past medical history that includ es coronary artery disease and COPD, presenting with complaints of several days of confusion and part icularly expressive aphasia, right facial weakness, right arm weakness and right leg weakness and num bness. The patient initially stated that the symptoms began yesterday, but then when she thinks abou t it more She states some of these symptoms have been happening on and off for the last 5-6 days. Cecelia carrizales is accompanied by her caregiver and sister who concur that in particular the confusion and difficul ty with word finding seemed to be happening for at least the last 5-6 days. Symptoms did seem to be intermittent and worse in the morning. She states that at the current time all of her symptoms have improved with the exception of some ongoing right foot tingling and perhaps subjective weakness in th e right leg compared to the left. She notes her gait is normal. She notes that she currently feels as if she is thinking normally and has no trouble finding words. She is a primarily German-speaking patient but is able to go back and forth between the 2 languages without any issues currently. She h as never had similar symptoms in the past. She has not had any fevers or chills. She has not had an y recent falls. PAST MEDICAL HISTORY: 1. GA x2. 2. COPD. 3. Osteoporosis. 4. GERD. 5. Hypothyroidism. 6. Scoliosis. 7. Chronic lymphocytic leukemia. PAST SURGICAL HISTORY: Cystocele and rectocele surgeries. FAMILY HISTORY: Both parents are . SOCIAL HISTORY: Patient is originally from [facility]. She lives independently, though she does have a neighbor who is also her caregiver. She smoked until the age of 61, but there is some discrepancy be tween the patient and caregiver and sister how much she actually smoked. She does not drink alcohol in significant amounts. She is . REVIEW OF SYSTEMS: 10-point review of systems obtained, negative except as per HPI. MEDICATIONS: Levothyroxine. ALLERGIES: Iodine. PHYSICAL EXAM: VITAL SIGNS: BP 140/94, heart rate 84, respiratory rate 16, O2 saturation 92% on 2 L , temperature is 36.5. GENERAL APPEARANCE: This is an elderly female. She is awake and alert. She is in no acute distress. EYES: Anicteric. HENT: Oropharynx clear. CARDIOVASCULAR: Regular rate and rhythm, no MRG. PULMONARY: CTA bilaterally. Normal work of breathing. ABDOMEN: Soft, nonten janelle. Positive bowel sounds. EXTREMITIES: No clubbing, cyanosis, or edema. SKIN: Warm, dry, well perfused. NEURO/PSYCH: Oriented and appropriate. She has subjective decreased sensation on her right foot. O therwise, strength and sensation do seem to be symmetrical and intact. LABORATORY DATA: Labs reviewed. White blood cell count of 9.7. D-dimer is 0.4, sodium of 134. LFT s unremarkable. Head CT, personally reviewed and interpreted, shows no acute findings, specifically no hemorrhage, ma ss or infarct. There is a comment made from the radiologist of minimal nonspecific hypodensities in the white matter of bilateral cerebral hemispheres, possible microvascular ischemic disease versus po st infectious or post inflammatory sequela or migraine-related sequela. Head and neck CT angiogram shows no significant stenoses. EKG, personally reviewed and interpreted, showing sinus rhythm, left anterior fascicular block, and L VH. ASSESSMENT AND PLAN: This is an 82-year-old female with a past medical history of chronic obstructiv e pulmonary disease and coronary artery disease presenting with several days of intermittent neurolog ic symptoms, primarily right facial and right-sided weakness with accompanying confusion concerning f or possible transient ischemic attack versus cerebrovascular accident. 1. Transient ischemic attack versus cerebrovascular accident. Again, patient with symptoms that kameron nd like they have been occurring over the last 5-6 days intermittently. At this time she seems to be completely neurologically intact other than some subjective weakness or numbness of her right lower extremity. Imaging thus far unremarkable. Neurology has been consulted and will evaluate in the [facility], [place]. She has been started on aspirin. Lipid panel and hemoglobin A1c will be obtained. 2. Acute encephalopathy. From the sound of what she is describing to her family and what the family is describing, it sounds as if she has been having episodes of confusion that sound more concerning for metabolic derangement possibly. They do seem to have resolved, however, making something like in fection less likely. We will check a urinalysis and TSH. Otherwise, suspect it is related to whatev er has been going on as per above. Again, Neuro to evaluate in the morning. 3. Coronary artery disease without any complaints of chest pain without any signs of acute ischemia on EKG. She is not on usual cardiac medications at this time. 4. Chronic obstructive pulmonary disease. Lungs relatively clear. Patient does have mild hypoxia w hen she is lying down it seems like which we will monitor. She does not have any signs of an acute e xacerbation at this point. We will provide p.r.n. albuterol as needed. 5. Hypothyroidism. Will recheck a TSH and continue her levothyroxine. 6. Disposition. Observation status. I suspect she will need less than 48 hours stay for evaluation and management of above. Patient is new to my care. Old records reviewed and summarized as per History Of Present Illness and Past Medical History. Care plan reviewed with ER physician including plans for imaging. Further hi story obtained from patient's neighbor/caregiver and sister present at bedside. /[id number]/MODL
[2018-05-04] MEDS ORDERED: LEVOTHYROXINE 88 MCG TAB PO SCH (06:00)
--- NOTE | 2018-05-04 08:40 | ASMTLACE ---
DIVYA Acuity / Level of Answers: Yes Care: Did the patient have an inpatient admission? Comorbidities - select Answers: Any tumor (including all that apply lymphoma or leukemia) Chronic pulmonary disease Previous myocardial infarction Other Notes: GERD # of Emergency department Answers: 3-4 visits in the last 6 months Social determinants Answers: Mental health diagnosis (anxiety, depression, pers onality disorders, etc.) Score: 15 Date Signed: 05/04/2018 08:39 AM Electronically Signed By:Ashwini Gomez
[2018-05-04] MEDS: ENOXAPARIN 30 MG/0.3 ML SYR SC SCH (09:41)
[2018-05-04] MEDS: ASPIRIN 81 MG CHEWABLE TAB PO SCH (09:41)
[2018-05-04] MEDS: ATORVASTATIN CALCIUM 20 MG TAB PO SCH (09:41)
--- NOTE | 2018-05-04 09:47 | GCON ---
[f rep st] CONSULTATION NEUROLOGIC CONSULTATION REFERRING PHYSICIAN: Abilio William MD HISTORY: The patient is an 82-year-old woman whom I am asked to see in neurologic consultation justin ortiz possible TIA or stroke and some other neurologic symptoms. The history is obtained from review of the medical records, as well as discussions with the patient. The patient is accompanied by her s isviv, who is exclusively speaking Swedish, but the two of them communicate effectively and are able t o give me additional details of recent events. The patient says that over the last few weeks there h ave been some troubles with her swallowing. She also has had several days of trouble with getting he r words out or slurring of her speech. It is a little difficult to ascertain exactly what is happeni ng, but it is clear that the speech process is not normal right now in terms of formation of some wor ds. She notices trouble with her lips in particular. She has also been having perception of some ti ngling in her feet bilaterally. That is at least several weeks old, but then she says she always wor e high heels as a younger woman and wonders if that might have caused problems in the nerves. She de scribes a little bit of swelling in the right lower quadrant of her abdomen, which is better now, but said it seemed swollen yesterday like a balloon. She has complained intermittently of right-sided p aresthesias or perhaps a little bit of weakness in the right arm and leg. I spoke to her physical th erapist this morning, who says the patient was more or less standby assist, but is frail in her movem ents and has a little tendency to lean toward the left. She was not detecting definitive asymmetry o f muscle power on the exam. The patient also tells me that she has had many months of awareness of trouble with her short-term me murray. She clarifies that all of the long-term memory is well maintained, but remembering even what s he said several hours earlier is becoming more of a challenge, which her sister seemed to confirm. O verall, she remains independent. She is not normally experiencing focal deficits as recently describ ed. A 10-point review of systems is unremarkable, except for that noted above. FAMILY HISTORY: Perhaps notable for some elevated cholesterol from what I am trying to ascertain. PAST MEDICAL HISTORY: There has been past medical history of myocardial infarction twice, COPD, oste oporosis, reflux, hypothyroidism, scoliosis, and chronic lymphocytic leukemia. She has had rectocele and cystocele surgeries in the past. She is living independently. She is from [facility] and [facility]. There is some history of smoking up until at least her 60s, and past that is a little uncertain . She does not have significant alcohol consumption. She is normally on levothyroxine at home. Sen sitivity to iodine. Currently, she has had aspirin added, on Lovenox for DVT prophylaxis. PHYSICAL EXAM: VITAL SIGNS: The blood pressure is 117/66, pulse of 54, respirations 16, temperature 36.6. GENERAL: She is well developed, in no acute distress. NECK: Supple, with no bruits or mass es. CARDIAC: Regular rate and rhythm. No murmur. EXTREMITIES: No cyanosis or edema. She is very thin and somewhat frail-appearing. NEUROLOGIC: Pupils are 3 mm and reactive. Extraocular movement s are intact. Normal facial sensation, except she feels cold a little bit on the left cheek than the right. I am not convinced of definite facial asymmetry, but when she makes some sounds with her lip s, she notices a little bit of dysarthria, and I can detect that as she speaks. She is not aphasic. She is fully oriented. We did not do any detailed mental status testing today, but she is able to c ommunicate effectively in both Latvian and Swedish. Palate elevates symmetrically. Tongue protrudes midline. There is a little bit of weakness or softn ess to her voice in general. Hearing seems to be preserved. Motor exam: Normal muscle tone, but toño carrizales has decreased muscle bulk throughout her body consistent with her general habitus of being frail in appearance. The overall muscle power is weak, without definitive asymmetry on the right or left. S he has about 4/5 throughout most of the extremities proximally and a little better distally. Rapid a lternating movements are slow in all areas. No tremors. She is not ataxic in her upper extremities, nor when she is walking. Reflexes are 2 to 3+, a little more brisk on the right than the left and a bsent at the ankles. Sensation is decreased distally in the lower extremities with loss of vibration at the great toe and some decreased perception of cold temperature distally. No Babinski signs evid ent. I have reviewed the head CT, which shows generalized atrophy and white matter disease but nothing els e more specific. CT angiograms of the head and neck do not show significant stenoses of the vessels. Echocardiogram is pending. LABORATORY DATA: Laboratory studies reveal elevated LDL cholesterol of 154, total cholesterol 265, a nd HDL cholesterol 103. Otherwise unremarkable electrolytes. TSH of 17. Unremarkable CBC. Sinus r hythm on EKG. IMPRESSION: The patient has 3 particular neurologic issues. The first is this question of fluctuati ng dysarthria and speech difficulties, as well as paresthesias on the right and some weakness. There is a generalized weakness, but there have been some reports of relative right-sided weakness compare d to the left. The exam today is fairly nonspecific in findings, although I think she has a little b it of dysarthria with labial movements in particular. As a result, I would like to obtain brain MRI to look for evidence of a small stroke or the burden of cerebrovascular disease. Her principal risk factors are age and hyperlipidemia, although she has a very high HDL. She is going to have echocardi ogram with bubble study. She needs a speech therapy consultation as well and might need a swallowing study. She is now on aspirin therapy for antiplatelet therapy, which is appropriate. With the elev ated LDL and a possible TIA, I would recommend initiation of statin therapy and discussed this a fabienne le bit with her. Her second problem is one of decreased sensation in the distal lower extremities of uncertain duratio n, but consistent with a mild peripheral neuropathy by her description and by my exam. I think this is a secondary issue. The third problem she mentions is relatively progressive problems over at least the last year or so w ith decrease in short-term memory. As to whether this represents normal aging or mild cognitive impa irment versus early development of dementia is a little hard to say at this point. I explained to he r that this is something we should follow up on as an outpatient. MRI will also look for any evidenc e of prominent cerebrovascular disease which could cause this, or relative hippocampal atrophy might be an early indicator of dementia as well. I defer to Medicine on the issue of her complaints about intermittent abdominal swelling in the right lower quadrant. Depending on her additional workup today, it is possible she could be discharged wi th further outpatient workup later, but we will at least see what MRI shows. Please contact me with any question. Total unit time on this case of 70 minutes, greater than 50% of the time counseling and coordination of care with the patient, review of the current workup in process for determining the source of these multiple issues. /[id number]/MODL
--- NOTE | 2018-05-04 10:50 | ASMTCMCOM ---
CM Note CM Note Notes: Patient admitted for possible TIA v stroke, although it seems like her neurologic symptoms are not acute in nature. She is complaining primarily of trouble with her short term memory. Neurosurgery has consulted and recommends a brain MRI. PT/OT pending. Patient lives alone. She has a neighbor, Aliyah, who also seems to act as a caregiver. I have placed a call to her to inquire about patient's PLOF. Patient also has a sister Radha who seems to be Vincentian-speaking only. Patient is bilingual. Discharge needs are TBD; Case Management will follow. Date Signed: 05/04/2018 10:49 AM Electronically Signed By:Anjana Samaniego RN
--- NOTE | 2018-05-04 12:43 | ECHO ---
[email or web address] [address] Main: [phone] Fax: Transthoracic Echocardiogram Name: CLAUDIA DAVE MR#: [id number] Study Date: 05/04/2018 Study Time: 08:27 AM Date of : 1935 Age: 82 year(s) Height: 147.3 cm (58 in.) Weight: 34.93 kg (77 lb.) BSA: 1.21 m2 Gender: Female Examination: Echo Indication: TIA Image Quality: Contrast: Requested by: Abilio William BP: 122 mmHg/64 mmHg Heart Rate: Rhythm: Indication: TIA Procedure Staff Electronic Health Records Specialist: Mily Torrez ELVA Reading Physician: Mt Barakat MD Requesting Provider: Conclusions: Normal size left ventricle. The ejection fraction is estimated to be 70-75 %. Normal RV function. The left atrium is normal in size. Normal appearing atrial septum. The right atrium is normal in size. No aortic valve stenosis is present. The pulmonary artery pressure is normal. No pericardial effusion. Measurements: Chambers Valvular Assessment AV/MV Valvular Assessment TV/PV Normal Normal Normal Name Value Range Name Value Range Name Value Range Ao Vilma (MM): 3.3 cm (2.2 cm-3.7 AV meanP mmHg ( - ) TR Vmax: 2.57 mm/s ( - ) cm) MV E Vmax: 0.83 m/s ( - ) TR PGmax: 26 mmHg ( - ) IVSd (2D): 0.6 cm (0.6 cm-1.1 MV A Vmax: 0.94 m/s ( - ) syst. PAP: 31 mmHg ( - ) cm) MV E/A: 0.88 ( - ) LVDd (2D): 3.4 cm (3.9 cm-5.3 cm) LVDs (2D): 1.9 cm (2.1 cm-4 cm) LVPWd (2D): 0.9 cm ( - ) LVEF (MOD4): 76 % (>=55 %) EF Range: 70-75 % Continued Measurements: Chambers Valvular Assessment AV/MV Valvular Assessment TV/PV Patient: CLAUDIA DAVE Study Date: 05/04/2018 Page 1 of 2 08:27 AM Name Value Name Value Name Value LADs: 2.8 cm MV E' Septal: 0.05 m/s CVP (est.): 5 mmHg LADs Lon.2 cm MV E/E' Septal: 15.30 LA Area: 12.1 cm2 MV E/E' Lateral: 11.90 Findings: Left Ventricle: Normal size left ventricle. No LV hypertrophy. Global hypercontractility of the left ventricle. The ejection fraction is estimated to be 70-75 %. No regional wall motion abnormality. Grade 1 diastolic dysfunction (abnormal relaxation). Right Ventricle: Normal size right ventricle. Normal RV function. Left Atrium: The left atrium is normal in size. Normal appearing atrial septum. Right Atrium: The right atrium is normal in size. Mitral Valve: Moderate mitral annular calcification. Mild mitral valve regurgitation is present. Aortic Valve: The aortic valve is tri-leaflet. Minimal aortic cusp calcification is noted. Trivial aortic valve regurgitation. No aortic valve stenosis is present. Tricuspid Valve: The tricuspid valve is normal in appearance and function. Mild tricuspid regurgitation is present. The pulmonary artery pressure is normal. Pulmonic Valve: The pulmonic valve is normal in appearance and function. Aorta: The aorta is normal. Pericardium: No pericardial effusion. (No Signature Object) Patient: CLAUDIA DAVE Study Date: 05/04/2018 Page 2 of 2 08:27 AM [id number]
--- NOTE | 2018-05-04 14:08 | HOSPPROG ---
Hospitalist Progress Note Assessment/Plan: Assessment: 82-year-old female presents with acute paresis, dysarthria, dysphagia of uncertain etiology Plan: 1. Possible CVA. Patient has a constellation of symptoms including right-sided paresis which is more subjective on exam at this time, as well as reports of expressive aphasia, intermittent dysphagia, and what sounds like neuropathy -neurology consultation appreciated, per Dr. Rosales, it is possible that some of the symptoms are acute and some of these are chronic and an MRI would be the most effective tool to determine whether they are secondary to cerebrovascular occlusion -counseled patient and her sister regarding the need for brain MRI, patient is currently struggling with completing the MRI screening form despite extensive assistance from both myself as well as her nurse, patient's neighbor and friend who is familiar with the healthcare setting will be visiting soon and will be assisting the patient with completion of the form -currently on aspirin, statin -CTA demonstrates minimal plaque, EKG was sinus mechanism (personally interpreted), continue monitor on telemetry -obtaining echo with bubble -ongoing therapy assessments, it is currently unclear whether patient will be safe to return home with home care versus halfway facility 2. Coronary artery disease. Chronic, history of RI, unclear date and whether she underwent PCI, presented on no cardiac medications -LDL elevated at 154, initiated statin -initiated aspirin -monitor blood pressure -continue to attempt to obtain additional information from patient to help guide care, recommend establishing follow-up care with [facility] 3. Memory impairment. I suspect that this is somewhat chronic, and this may be either a cognitive impairment/dementia process verses vascular dementia verses under treated hypothyroidism -will optimize thyroid supplementation -ongoing cognitive assessments 4. Hypothyroidism. Under replaced with TSH of 17.6, may be affecting memory and balance as above, unclear whether patient is properly taking her Synthroid at home, although this is her only home medication -increase Synthroid to 100 mcg daily, recommend repeating TSH in 4 weeks and continuing to counseled the patient regarding proper administration on an empty stomach 5. Dysphagia. Chronic, unclear whether this is related to possible CVA versus more of upper esophagus motility issue -if no CVA on MRI, then recommend outpatient GI follow-up, as well as monitoring oral intake during this hospitalization Diet. Regular with [employer] recommendations Code. Full Prophylaxis. High risk, Lovenox 40 Disposition. Anticipated discharge uncertain this time, patient is medically unsafe to discharge at this time as her deficits require further diagnostic workup and assessment, she is unsafe to discharge home, upgraded to inpatient admission status reasonable medical necessity including anticipation of length stay greater than 48 hr for the above-mentioned reasons. Subjective: patient feels more comfortable speaking malawian than mauritian at this time (unless the interpreted speaks "perfect mauritian"); denies abd pain; denies difficultly swallowing presently; hungry Objective: Vital Signs Temp Pulse Resp BP Pulse Ox 36.5 C 66 15 149/75 H 96 05/04/18 11:48 05/04/18 11:48 05/04/18 11:48 05/04/18 11:48 05/04/18 11:48 05/03/18 05/04/18 05/05/18 05:59 05:59 05:59 Intake Total 100 Balance 100 - Time Spent With Patient Time Spent with Patient: greater than 35 minutes Time Spent with Patient: Greater than 35 minutes spent on this patients care, greater than 50% of time spent counseling, educating, and coordinating care regarding the above mentioned plan. - Physical Exam Constitutional: no apparent distress, not in pain, chronically ill appearing, other (thin appearing) Cardiovascular: regular rate and rhythym, no murmur, rub, or gallop, No edema Respiratory: no respiratory distress, no rales or rhonchi, clear to auscultation Gastrointestinal: normoactive bowel sounds, soft, non-tender abdomen, no palpable masses, No guarding, No distension Neurologic: AAOx3, sensation intact bilaterally, No weakness (motor subjectively less in RLE), No facial droop Psychiatric: not anxious, other (tangential but directible), No agitated ICD10 Worksheet Patient Problems: Problems Problem Status Onset Severe dizziness Acute Urinary tract infection Acute Generalized weakness Acute Cystocele Acute Acute dyspnea Acute Pneumonia Acute Transient cerebral ischemia Acute
--- NOTE | 2018-05-04 16:28 | PDMN ---
Medical Necessity Medical necessity: Change to IP, as of 05/04/18, per MD; los >2 mn for ongoing management of R-sided paresis, expressive aphasia, dysphagia & neuropathy r/t possible CVA; pt unsafe to return home; requiring further workup/monitoring, Neuro consult & therapies; comorbid advanced age, CAD, [place] & memory impairment; per progress note & order 05/04/18
[2018-05-05] MEDS ORDERED: LEVOTHYROXINE 100 MCG TAB PO SCH (06:00)
[2018-05-05 07:18] VITALS: BP 115/61
--- NOTE | 2018-05-05 09:08 | HOSPPROG ---
Hospitalist Progress Note Assessment/Plan: 82-year-old female presents with acute paresis, dysarthria, dysphagia of uncertain etiology. Today is my first encounter with the patient, chart reviewed. *neurologic concern, possible TIA -CTA shows plaque, EKG shows she has been in sinus rhythm -aspirin therapy and statin -MRI showed nothing acute *CAD -hx of VT -LDL elevated, on statin -bp stable *memory impairment -f/u wth PCP, likely chronic *hypothyroidism -TSH is 17.6 -Synthroid dose increased to 100 mcg daily -repeat TSH in 4-6 weeks * Dysphagia -chronic, seen and evaluated by ST -should get f/u with GI to further evaluate her esophagus -says her ears feel plugged when she swallows, will do a trial of debrox Disposition. dc home w increase dose of Synthroid and asa therapy, recommendation is to f/u with GI in OP setting Subjective: Nahomy is feeling well, main complaint is ear pressure when she swallows food. Objective: Vital Signs Temp Pulse Resp BP Pulse Ox 36.4 C 53 L 14 115/61 95 05/05/18 07:17 05/05/18 07:17 05/05/18 07:17 05/05/18 07:17 05/05/18 07:17 Laboratory Results 05/05/18 04:20 05/05/18 04:20 05/04/18 05/05/18 05/06/18 05:59 05:59 05:59 Intake Total 600 Balance 600 - Physical Exam Constitutional: no apparent distress, appears nourished, not in pain Eyes: PERRL, EOMI Ears, Nose, Mouth, Throat: hearing normal Cardiovascular: regular rate and rhythym Respiratory: no respiratory distress Skin: warm Musculoskeletal: full muscle strength Neurologic: AAOx3, CN II-XII Intact, No facial droop Psychiatric: interacting appropriately, not anxious ICD10 Worksheet Patient Problems: Problems Problem Status Onset Transient cerebral ischemia Acute Acute dyspnea Acute Cystocele Acute Generalized weakness Acute Pneumonia Acute Severe dizziness Acute Urinary tract infection Acute
[2018-05-05] MEDS ORDERED: CARBAMIDE PEROXIDE 15 ML OTIC.BTL EACHEAR SCH (10:00)
[2018-05-05] MEDS: ASPIRIN 81 MG CHEWABLE TAB PO SCH (10:13)
[2018-05-05] MEDS: ENOXAPARIN 30 MG/0.3 ML SYR SC SCH (10:13)
[2018-05-05] MEDS: ATORVASTATIN CALCIUM 20 MG TAB PO SCH (10:13)
--- NOTE | 2018-05-05 11:06 | PDIAF ---
- Diagnosis Diagnosis: neurologic symptoms, possible tIA Code Status: Full Code - Medication Management Discharge Medications: Medications to Continue on Transfer Acetaminophen [Tylenol 325mg (*)] 650 mg PO Q4HRS PRN tab 05/05/18 [Last Taken Unknown] Aspirin [Aspirin 81mg (*)] 81 mg PO DAILY tab.chew 05/05/18 [Last Taken Unknown ] Atorvastatin Calcium [Lipitor 20 mg (*)] 20 mg PO DAILY #30 tab 05/05/18 [Last Taken Unknown] Levothyroxine [Synthroid 100 mcg (*)] 100 mcg PO DAILY06 #30 tab 05/05/18 [Last Taken Unknown] Discharge Medications: Refer to the Discharge Home Medication list for PRN reason. - Orders Services needed: Home Care, Physical Therapy, Occupational Therapy, Speech Language Pathologist Home Care Face to Face: I certify that this patient was under my care and that I had the required [id number] encounter meeting the encounter requirements on the discharge day. My findings support the fact that the patient is homebound as defined in Home Care Face to Face Continued: CMS Chapter 7 Medicare Benefits Manual 30.1.1 , The condition of the patient is such that there exists a normal inability to leave home and consequently, leaving home would require a considerable and taxing effort. Isolation Type: None Diet Texture: Regular Texture Diet, Thin Liquids, Meds Whole in Puree, Meds Crushed in Puree Additional Instructions: Follow up with Dr Toledo your TSH is elevated so we increased your Synthroid dose to 100 mcg, take this dose instead of your 88 mcg get a repeat TSH in 4 weeks if you continue to have trouble swallowing; see a microsoft systems engineer you have been started on a medication to lower your cholesterol, this can cause muscle aches; if you get this, see your doctor right away take a baby aspirin daily for stroke prevention prescriptions were sent to [facility] - Follow Up Care Current Providers and Referrals: Jasmyn Toledo MD [Primary Care Provider] - As per Instructions
--- NOTE | 2018-05-05 12:20 | GDS ---
[f rep st] DISCHARGE SUMMARY DISCHARGE DIAGNOSES: 1. Neurologic issues, possible transient ischemic attack. 2. Coronary artery disease. 3. Memory impairment. 4. Hypothyroidism. 5. Dysphagia. CONSULTATION: Dr. Deonte Rosales. HISTORY OF PRESENT ILLNESS: Briefly, the patient is an 82-year-old woman with a past medical history that includes coronary artery disease and COPD. She presented with complaints of several days of co nfusion and expressive aphasia, especially complaints of right facial weakness, right arm weakness an d right leg weakness and numbness. Her symptoms had begun the day prior to being admitted. She was accompanied by caregiver and sister who concur that the patient has ongoing confusion and difficulty with word finding. She is primarily Bangladeshi speaking. During her stay, she had a CT of the head that showed [id number] age-related atrophy, no hemorrhage, mass effect or definite peripheral infar ct. She has minimal nonspecific hypodensities and white matter of the bilateral cerebral hemispheres . She had a head and neck CTA performed which showed a relatively grossly minimal plaque formation i n the carotid bulb level. Her angiogram of [place] was normal. It was noted that she has m oderate degenerative disk disease. Subsequently, the patient agreed to have an MRI which showed no a cute or subacute infarction identified. It showed moderate age-related cerebral cortical atrophy wit h chronic microvascular ischemic gliosis. Today during our interview her main complaint is feeling l lexus her ears are plugged. She prefers not to try any Debrox at this time. She will be discharged ho id with home care and instructed to return to the ER if she has any type of neurologic symptoms. HOSPITAL COURSE: 1. Possible transient ischemic attack. Her imaging showed nothing acute. We will continue her on a spirin and statin therapy. 2. Coronary artery disease. She has a history of an NE. Her LDL was elevated, so statin was added. 3. Memory impairment. This is likely chronic. We will have her follow up with her PCP. I have als o ordered home care, speech therapy. 4. Hypothyroidism. Her TSH is 17.6. Her Synthroid dose was increased to 100 mcg. She needs to get a repeat TSH in 4-6 weeks. 5. Dysphagia. This appears to be chronic. If she still has further issues it is recommended that s he follow up with GI in the outpatient setting. DISCHARGE CONDITION: Stable. PHYSICAL EXAMINATION ON DISCHARGE: VITAL SIGNS: Blood pressure is 115/61, heart rate of 53, respira tory rate of 14, O2 saturation on 2 L are 95%, temperature is 36.4 Celsius. MEDICATIONS AT DISCHARGE: Please see the EMR. DISCHARGE INSTRUCTIONS: 1. Follow up with Dr. Toledo. Her Synthroid dose has been increased from 88 mcg to 100 mcg. 2. To get a TSH repeat in 4 weeks. 3. If she continues to have trouble swallowing see a senior software quality analyst. She has also been started on Lipitor to help with cholesterol. If she develops muscle aches, see her primary care provider imm ediately. 4. Take a baby aspirin daily for stroke prevention. Greater than 30 minutes discharging and coordinating the patient's care. /[id number]/MODL
--- NOTE | 2018-05-05 16:44 | ASMTCMCOM ---
CM Note CM Note Notes: Pt medically stable for d/c with 24/hr supervision with sister and neighbor/caregiver Aliyah. Pt will continue service with [facility] palliative care, updates sent in [employer]. Awaiting call from Aliyah to see if they want [facility]/OT/PT; PSYCHIATRIC alerted. Date Signed: 05/05/2018 04:43 PM Electronically Signed By:KEVIN Evans
== END 2018-05-05 13:06 | disposition home or self-care (01) | DRG 69 ==
LOC: INTOOBSV 18:30 → F3N 19:57 → OBSVTOIN 05-04 14:11
PROVIDERS: ADMIT Internal Medicine; ATTEND Internal Medicine
DX: G45.9 Transient cerebral ischemic attack, unspecified (principal); R13.10 Dysphagia, unspecified; R47.01 Aphasia; R29.701 NIHSS score 1; I25.10 Atherosclerotic heart disease of native coronary artery without angina pectoris; R41.3 Other amnesia; C91.10 Chronic lymphocytic leukemia of B-cell type not having achieved remission; E03.9 Hypothyroidism, unspecified; M41.9 Scoliosis, unspecified; K21.9 Gastro-esophageal reflux disease without esophagitis; M81.0 Age-related osteoporosis without current pathological fracture; I25.2 Old myocardial infarction; Z87.891 Personal history of nicotine dependence
CPT/HCPCS: 82435-PO; 82565-PO; 82947-PO; 84132-PO; 84295-PO; 84520-PO; 85014-PO; 92526-GN; 92610-GN; 96374; 97116-GP; 97162-GP; 97166-GO; 97530-GO; 97530-GP; 97535-GO; G0378; G8978-GP-CJ; G8979-GP-CI; G8980-GP-CI; G8987-GO-CJ; G8988-GO-CI; G8989-GO-CI; G8996-GN-CH; G8997-GN-CH; G8998-GN-CH; J1200; J1650; J2930; Q9967